=== PATIENT | female | born 1955 | race Caucasian/White ===

== ENCOUNTER 2017-12-30 17:54 | Inpatient (IN) ==
[2017-12-31] MEDS ORDERED: Ipratropium/Albuterol Neb 3 ML IH STA (00:20)
[2017-12-31 00:35] LABS: ABG Base Excess 10 mEq/L (-2 to 3); ABG HCO3 37 mEq/L (21-27); ABG Oxygen Saturation 92 % (95-98); ABG PCO2 64 mmHg (35-45); ABG PH 7.37 pH Units (7.32-7.45); ABG PO2 69 mmHg (85-104); ABG TCO2 39 mEq/L (20-26)
[2017-12-31] MEDS ORDERED: Naloxone 0.4 MG/ML INJ IVP PRN (01:35)
[2017-12-31] MEDS ORDERED: Acetaminophen 325 MG TABLET PO PRN (01:35)
[2017-12-31] MEDS ORDERED: Ipratropium/Albuterol Neb 3 ML IH PRN (01:39)
[2017-12-31] MEDS ORDERED: methylPREDNISolone 125 MG/2 ML VIAL IVP ONE (01:39)
[2017-12-31] MEDS ORDERED: Dextrose Gel 15 GM/37.5 ML TUBE PO PRN ×2 (01:41)
[2017-12-31] MEDS ORDERED: D5% in Water 1,000 ML IVC PRN (01:41)
[2017-12-31] MEDS ORDERED: *HR* Dextrose 50 % in Water (Syg) 50 ML SYRINGE IVP PRN (01:41)
--- NOTE | 2017-12-31 02:19 | Internal Med History&Physical ---
Date of Encounter: 12/31/17 Time of Encounter: 01:00 Assessment and Plan (1) COPD exacerbation Current visit: Yes Status: Acute Patient has increased shortness of breath and wheezing. History of COPD on home oxygen. Her bicarbonate level increased from baseline 24 to 35. ABG shows CO2 retention. Consider COPD exacerbation - Place patient on antibiotic, steroid, and bronchodilator - BiPAP for CO2 retention - Continue supportive treatment (2) Hypertension Current visit: Yes Status: Acute Continue home medications Qualifiers: Hypertension type: essential hypertension Qualified Code(s): I10 - Essential (primary) hypertension (3) Diabetes mellitus Current visit: Yes Status: Acute Place patient on sliding scale coverage Qualifiers: Diabetes mellitus type: type 2 Diabetes mellitus half-way insulin use: without half-way use Diabetes mellitus complication status: without complication Qualified Code(s): E11.9 - Type 2 diabetes mellitus without complications (4) Abnormal EKG Current visit: Yes Status: Acute Patient denies chest pain. No specific ST-T change with patient's potassium 3.3. Consider nonspecific. - Continuous cardiac monitoring - Track 3 sets of troponin - Echo in a.m. - Repeat EKG in a.m. (5) DVT prophylaxis Current visit: Yes Status: Acute Heparin subcutaneously Internal Medicine - H&P: HPI Chief complaint: Shortness of breath Admitted From: Home Plans for Post Hospital Care: Home History of present illness: Ms. Barraza is a 62 year old female with history of COPD, diabetes, hypertension, presented to [place] emergency room for increased shortness of breath. Patient said she has cough with whitish sputum for about 20 days, with progressive increased shortness of breath. Patient denies a fever. Patient denies chest pain, abdominal pain, nausea. In [place] emergency room, EKG shows shallow T-wave inversion on V1 to V4. Patient was transferred to our hospital for further management. Past Med Surg Social Fam HX - Past Medical History Medical history: arthritis, asthma, COPD, coronary artery disease, diabetes, GERD, hypertension Psychiatric history: anxiety, depression - Past Surgical History Surgical History: hysterectomy - Social History Smoking Status: Current every day smoker Packs per day: 1 pack/day Smokeless Tobacco Status: No Alcohol use: occasionally Drug use: none - Family History Mother Hx Family Cardiac Disorders: Yes Father History Unknown: Yes Living Status: Hx Family Cardiac Disorders: Yes Internal Medicine - H&P: Meds Albuterol Sulfate [Proair Hfa] 1 - 2 puff IH DAILY 02/08/17 [History] Aripiprazole [Abilify] 15 mg PO DAILY 02/08/17 [History] Escitalopram Oxalate 10 mg PO DAILY 02/08/17 [History] Megestrol Acetate [Megace] 40 ml PO DAILY 02/08/17 [History] Metoprolol [Lopressor] 25 mg PO DAILY 02/08/17 [History] Mirtazapine [Remeron] 30 mg PO HS 02/08/17 [History] Tiotropium [Spiriva] 18 mcg IH DAILY 02/08/17 [History] Budesonide/Formoterol 160/4.5 [Symbicort 160/4.5] 2 puff IH BIDR #1 inhaler [Rx] Amlodipine Besylate 5 mg PO DAILY 12/14/17 [History] Aspirin [Lo-Dose Aspirin EC] 81 mg PO DAILY 12/14/17 [History] Cholecalciferol (Vitamin D3) [Vitamin D] 50,000 unit PO QWEEK 12/14/17 [History] Cyanocobalamin (B-12) [Vitamin B12] 3,000 mcg PO DAILY 12/14/17 [History] Ferrous Sulfate [Iron] 325 mg PO BID 12/14/17 [History] Folic Acid 1 mg PO DAILY 12/14/17 [History] Linagliptin [Tradjenta] 5 mg PO DAILY 12/14/17 [History] Omeprazole [PriLOSEC] 40 mg PO DAILY 12/14/17 [History] Simvastatin [Zocor] 10 mg PO HS 12/14/17 [History] diazePAM [Valium] 5 mg PO BID PRN 12/14/17 [History] Budesonide/Formoterol 160/4.5 [Symbicort 160/4.5] 2 puff IH DAILY 12/30/17 [ History] Pioglitazone HCl [Actos] 30 mg PO DAILY 12/30/17 [History] 3 Allergy/AdvReac Type Severity Reaction Status Date / Time No Known Allergies Allergy Unverified 12/14/17 14:09 All Systems PM: A 10-system review of systems was performed and is negative for pertinent findings except as documented above in the HPI. - Constitutional Vitals: Temp Pulse Resp BP Pulse Ox 98.3 F 68 22 95/62 95 12/30/17 23:50 12/30/17 23:50 12/31/17 01:00 12/30/17 23:50 12/31/17 01:00 General appearance: Present: mild distress, A&O X 3, answers questions appropriately - Head Head exam: Present: atraumatic, normocephalic - Eye Eye exam: Present: PERRL, conjuntiva pink, sclera anicteric Pupils: Present: PERRL - Neck Neck exam general surgery: Present: supple, trachea midline. Absent: lymphadenopathy - Respiratory Respiratory exam: Present: CTAB, wheezes (Diffused wheezes bilaterally). Absent : accessory muscle use, rales, rhonchi - Cardiovascular Cardiovascular exam: Present: RRR, +S1, +S2. Absent: diastolic murmur, gallop, rubs, systolic murmur - GI/Abdominal GI/Abdominal exam: Present: normal bowel sounds, soft, no peritoneal signs. Absent: distended, tenderness - Extremities Exam Extremities exam: Present: warm, radial pulses palpable and symmetrical. Absent : calf tenderness, cyanotic, pedal edema - Neurological Exam Neurological exam: Present: CN II-XII intact, oriented X3, no focal deficits. Absent: pronater drift, facial droop, speech deficit - Skin Skin exam: Present: dry, intact Internal Med - H&P Results - ABG Interpretation ABG results: 12/31/17 00:31 ABG pH 7.37 ABG pCO2 64 H ABG pO2 69 L ABG HCO3 37 H ABG Total CO2 39 H ABG O2 Saturation 92 L ABG Base Excess 10 H - EKG Data -: EKG Interpreted by Myself EKG shows normal: sinus rhythm, ST-T waves (Shallow T-wave inversion on V1 to V4 ) Rate: normal - EKG Data Prior EKG available for review: no
[2017-12-31 02:44] LABS: Basophils % 0.2 %; Hematocrit 37.8 % (35.3-44.9); Hemoglobin 12.1 g/dL (11.5-15.4); Immature Granulocytes % 0.7 % (0-4); Immature Platelets 3.6 % (1.1-6.1); Lymphocytes # 0.4 K/mcL (0.6-4.6); Lymphocytes % 6.9 %; Mean Corpuscular Volume 96.9 fL (83.0-100.0); Mean Platelet Volume 9.8 fL (9.4-12.4); Monocytes % 0.5 %; Neutrophils # 5.2 K/mcL (1.6-8.9); Nucleated Red Blood Cells 0.4 /100 WBC (0); Platelet Count 215 K/mcL (140-400); Red Cell Distribution Width 12.1 % (11.5-14.5); Segmented Neutrophils % 91.7 %
[2017-12-31 03:04] LABS: Calcium 9.1 mg/dL (8.6-10.3); Magnesium 1.7 mg/dL (1.6-2.6); Potassium 3.8 mEq/L (3.5-5.1)
[2017-12-31] MEDS: Ipratropium/Albuterol Neb 3 ML IH SCH ×4 (03:41→22:19)
[2017-12-31] MEDS: *HR* Heparin 5,000 UNIT/ML VIAL SQ SCH ×2 (05:14→17:31)
[2017-12-31] MEDS: Budesonide/Formoterol 160/4.5 MDI IH SCH ×2 (10:47→22:19)
[2017-12-31] MEDS: Tiotropium 18 MCG inhalation IH SCH (10:48)
[2017-12-31] MEDS: Nicotine 21 MG PATCH.TD24 TD SCH (11:03)
[2017-12-31] MEDS: Insulin LISPRO 300 UNITS/3 ML VIAL SQ SCH ×4 (11:03→21:26)
[2017-12-31] MEDS: methylPREDNISolone 125 MG/2 ML VIAL IVP SCH ×3 (11:05→21:26)
[2017-12-31] MEDS: amLODIPine 5 MG TABLET PO SCH (11:05)
[2017-12-31] MEDS: Levofloxacin 750 MG/150 ML 750 MG/150 ML BAG IVPB SCH (11:05)
--- NOTE | 2017-12-31 14:07 | Internal Med Progress Note ---
Date of Encounter: 12/31/17 Time of Encounter: 09:10 - Assessment and plan (1) COPD exacerbation Current Visit: Yes Status: Acute Assessment and plan: Increased SOB, SAMPSON x 2-3 weeks. Pt with audible wheezing, ronchi on physical exam, conversational dyspnea. Pt requiring supplemental 02 at 2L to maintain sats > 92%. Blood gas 7.37/64/69/37, continue BiPAP at night. Continue Duonebs, Symbicort, Levaquin, Solumedrol, 02 prn, and Mucinex. (2) Abnormal EKG Current Visit: Yes Status: Acute Assessment and plan: No chest pain. Nonspecific ST changes with hypo-kalemia. Continue telemetry Troponins negative. Echo shows LVEF of 60-65%, mild LV DD, no significant valvular dysfunction. Repeat EKG in morning. (3) Diabetes mellitus Current Visit: Yes Status: Acute Assessment and plan: Monitor glucose carefully, patient is receiving IV Methylprednisolone. Sliding-scale insulin, Accu-Cheks before meals and at bedtime, diabetic diet. A1c ordered for morning. Qualifiers: Diabetes mellitus type: type 2 Diabetes mellitus termite treater insulin use: without snf use Diabetes mellitus complication status: without complication Qualified Code(s): E11.9 - Type 2 diabetes mellitus without complications (4) Hypertension Current Visit: Yes Status: Chronic Assessment and plan: Chronic. Continue home medications. Monitor blood pressure per admission orders. Qualifiers: Hypertension type: essential hypertension Qualified Code(s): I10 - Essential (primary) hypertension (5) Dyspnea Current Visit: Yes Status: Acute Assessment and plan: Plan as above. Qualifiers: Dyspnea type: unspecified Qualified Code(s): R06.00 - Dyspnea, unspecified (6) DVT prophylaxis Current Visit: Yes Status: Acute Assessment and plan: Heparin subcutaneous. - Time Spent With Patient less than 15 minutes - Subjective Interval history: Pt was seen and assessed at bedside at 0910. Pt reports feeling weak and SOB x 2 -3 weeks, increasingly worse until she presented to the ED. Pt is alert and awake, has conversational dyspnea and audible wheezing. Pt denies chest pain, n/ v/d, abdominal pain. Pt reports that she is still smoking and would like a Nicotine patch. Pt is aware that she will probably be here for 2 more days. - Constitutional Vitals: Temp Pulse Resp BP Pulse Ox 98.2 F 90 16 107/73 92 12/31/17 11:31 12/31/17 11:31 12/31/17 11:31 12/31/17 11:31 12/31/17 11:31 General appearance: Present: cooperative, mild distress, A&O X 3, pleasant, answers questions appropriately - Head Head exam: Present: atraumatic, normal inspection, normocephalic - Eye Eye exam: Present: normal appearance, conjuntiva pink, sclera anicteric - Neck Neck exam general surgery: Present: supple, trachea midline. Absent: lymphadenopathy, tenderness - Respiratory Respiratory exam: Present: CTAB, respiratory distress, rhonchi, wheezes. Absent : accessory muscle use, chest wall tenderness, rales, stridor - Cardiovascular Cardiovascular exam: Present: RRR, +S1, +S2. Absent: diastolic murmur, gallop, rubs, systolic murmur - GI/Abdominal GI/Abdominal exam: Present: normal bowel sounds, soft. Absent: distended, hepatomegaly, tenderness - Extremities Exam Extremities exam: Present: joint swelling, warm, radial pulses palpable and symmetrical. Absent: calf tenderness, cyanotic, pedal edema - Neurological Exam Neurological exam: Present: alert, oriented X3, no focal deficits. Absent: facial droop, speech deficit - Skin Skin exam: Present: dry, intact, normal color, warm. Absent: rash Internal Medicine: Result - Labs CBC & Chem 7: 12/31/17 02:12 12/31/17 02:12 Labs: Short CBC 12/31/17 Range/Units 02:12 WBC 5.6 (4.3-11.1) K/mcL Hgb 12.1 (11.5-15.4) g/dL Hct 37.8 (35.3-44.9) % Plt Count 215 (140-400) K/mcL Neutrophils # 5.2 (1.6-8.9) K/mcL BMP 12/31/17 02:12 Sodium 138 Potassium 3.8 Chloride 98 Carbon Dioxide 32 H BUN 12 Creatinine 1.13 Glucose 174 H Calcium 9.1 Cardiac Enzymes 12/31/17 12/31/17 Range/Units 02:12 08:05 Troponin I < 0.03 < 0.03 (< 0.04) ng/mL - ABG Interpretation ABG results: ABG ABG pH 7.37 pH Units (7.32-7.45) 12/31/17 00:31 ABG pCO2 64 mmHg (35-45) H 12/31/17 00:31 ABG pO2 69 mmHg (85-104) L 12/31/17 00:31 ABG O2 Saturation 92 % (95-98) L 12/31/17 00:31 - Impressions Impressions Echocardiogram 12/31/17 02:19 Impressions: LVEF 60-65%. Mild left ventricular diastolic dysfunction. Normal right ventricular structure and function. No significant valvular dysfunction. No pulmonary hypertension. Left Ventricular Wall Motion: Rest Echo Findings All wall segments showed normal motion. Findings: Study Quality * Technically adequate exam. ECG Findings * Normal sinus rhythm. Left Ventricle * Normal LV size and wall thickness. * LVEF 60-65%. * Mild left ventricular diastolic dysfunction. Right Ventricle * Normal right ventricular structure and function. Left Atrium * Normal left atrial size. Right Atrium * Normal right atrial size. Mitral Valve * Normal mitral valve structure. * No mitral stenosis. * No mitral regurgitation. Aortic Valve * Trace aortic regurgitation. * Aortic valve not well visualized. * No aortic stenosis. Tricuspid Valve * Tricuspid valve not well visualized. * No tricuspid regurgitation. * Estimated RA pressure is 3 mmHg. Pulmonic Valve * Pulmonic valve is not well visualized. * No pulmonic stenosis. * Trace pulmonic regurgitation. Pulmonary Artery * Pulmonary artery not well visualized. Aorta * Normally sized aortic root. Pericardium * There is no pericardial effusion present. Interatrial Septum * No evidence of PFO by color Doppler. IVC * Normal IVC dimensions and inspiratory collapse. Consult Discharge Plan - Plan Referrals: Soo Tineo CNP [Primary Care Provider] -
[2018-01-01] MEDS: methylPREDNISolone 125 MG/2 ML VIAL IVP SCH ×4 (03:28→21:09)
[2018-01-01] MEDS: Ipratropium/Albuterol Neb 3 ML IH SCH ×4 (04:06→22:02)
[2018-01-01] MEDS: *HR* Heparin 5,000 UNIT/ML VIAL SQ SCH ×2 (05:35→17:55)
[2018-01-01 06:07] LABS: Hematocrit 36.2 % (35.3-44.9); Hemoglobin 11.7 g/dL (11.5-15.4); Immature Granulocytes % 0.7 % (0-4); Lymphocytes # 0.4 K/mcL (0.6-4.6); Lymphocytes % 5.1 %; Mean Corpuscular HGB Conc 32.3 g/dL (31.6-35.5); Mean Corpuscular Volume 95.8 fL (83.0-100.0); Mean Platelet Volume 9.7 fL (9.4-12.4); Monocytes # 0.3 K/mcL (0.0-1.3); Neutrophils # 7.8 K/mcL (1.6-8.9); Platelet Count 188 K/mcL (140-400); Red Blood Count 3.78 M/mcL (3.82-4.97); Red Cell Distribution Width 12.3 % (11.5-14.5); Segmented Neutrophils % 91.2 %
[2018-01-01 06:25] LABS: Calcium 9.4 mg/dL (8.6-10.3); Potassium 4.3 mEq/L (3.5-5.1)
[2018-01-01] MEDS: Tiotropium 18 MCG inhalation IH SCH (07:57)
[2018-01-01] MEDS: Nicotine 21 MG PATCH.TD24 TD SCH (08:24)
[2018-01-01] MEDS: amLODIPine 5 MG TABLET PO SCH (08:25)
[2018-01-01] MEDS: Insulin LISPRO 300 UNITS/3 ML VIAL SQ SCH ×4 (08:26→21:09)
[2018-01-01] MEDS: Levofloxacin 750 MG/150 ML 750 MG/150 ML BAG IVPB SCH (08:26)
[2018-01-01] MEDS: Budesonide/Formoterol 160/4.5 MDI IH SCH ×2 (10:43→22:02)
--- NOTE | 2018-01-01 17:56 | Internal Med Progress Note ---
Date of Encounter: 01/01/18 Time of Encounter: 17:56 - Subjective Interval history: Interval changes: She feels her breathing is worse since she was admitted yesterday. Sounds very congested and very rhonchorous COPD exacerbation: Continue Bronchodilators Add muccinex Continue Solumedrol but begin to wean tomorrow continue empiric antibiotics DM-2: Comlicated by high-dose steroids Continue SSI Add Levemir 10 Units Sq AM and PB qACHS accuchecks Esssential HTN: Continue home medications - Constitutional Vitals: Temp Pulse Resp BP Pulse Ox 98.7 F 90 18 109/68 93 01/01/18 15:39 01/01/18 11:17 01/01/18 15:56 01/01/18 15:39 01/01/18 15:56 General appearance: Present: cooperative, mild distress, A&O X 3, pleasant, answers questions appropriately - Head Head exam: Present: atraumatic, normocephalic - Eye Eye exam: Present: EOMI, PERRL, conjuntiva pink, sclera anicteric Pupils: Present: PERRL - Neck Neck exam general surgery: Present: supple, trachea midline. Absent: lymphadenopathy, thyromegaly - Respiratory Respiratory exam: Present: rhonchi, wheezes. Absent: accessory muscle use, CTAB , rales, stridor, tachypnea - Cardiovascular Cardiovascular exam: Present: RRR, +S1, +S2. Absent: diastolic murmur, gallop, rubs, systolic murmur - GI/Abdominal GI/Abdominal exam: Present: normal bowel sounds, soft, no peritoneal signs. Absent: distended, tenderness - Extremities Exam Extremities exam: Present: warm, radial pulses palpable and symmetrical. Absent : calf tenderness, cyanotic, pedal edema - Neurological Exam Neurological exam: Present: CN II-XII intact, oriented X3, no focal deficits. Absent: pronater drift, facial droop, speech deficit - Psychiatric Psychiatric exam: Present: normal affect, normal mood - Skin Skin exam: Present: dry, intact Internal Medicine: Result - Labs CBC & Chem 7: 01/01/18 05:01 01/01/18 05:01 Labs: Short CBC 01/01/18 Range/Units 05:01 WBC 8.6 D (4.3-11.1) K/mcL Hgb 11.7 (11.5-15.4) g/dL Hct 36.2 (35.3-44.9) % Plt Count 188 (140-400) K/mcL Neutrophils # 7.8 (1.6-8.9) K/mcL BMP 01/01/18 05:01 Sodium 139 Potassium 4.3 Chloride 99 Carbon Dioxide 32 H BUN 22 Creatinine 1.27 H Glucose 214 H Calcium 9.4 - ABG Interpretation ABG results: ABG ABG pH 7.37 pH Units (7.32-7.45) 12/31/17 00:31 ABG pCO2 64 mmHg (35-45) H 12/31/17 00:31 ABG pO2 69 mmHg (85-104) L 12/31/17 00:31 ABG O2 Saturation 92 % (95-98) L 12/31/17 00:31 Consult Discharge Plan - Plan Referrals: Soo Tineo, JP [Primary Care Provider] -
[2018-01-01] MEDS ORDERED: D5% in Water 1,000 ML IVC PRN (23:07)
[2018-01-01] MEDS ORDERED: Dextrose Gel 15 GM/37.5 ML TUBE PO PRN ×2 (23:07)
[2018-01-01] MEDS ORDERED: *HR* Dextrose 50 % in Water (Syg) 50 ML SYRINGE IVP PRN (23:07)
[2018-01-02] MEDS: methylPREDNISolone 125 MG/2 ML VIAL IVP SCH ×4 (02:27→18:49)
[2018-01-02] MEDS: Ipratropium/Albuterol Neb 3 ML IH SCH ×4 (04:11→22:23)
[2018-01-02 04:37] LABS: Hematocrit 36.1 % (35.3-44.9); Hemoglobin 11.4 g/dL (11.5-15.4); Immature Granulocytes % 0.9 % (0-4); Lymphocytes # 0.3 K/mcL (0.6-4.6); Lymphocytes % 3.2 %; Mean Corpuscular HGB Conc 31.6 g/dL (31.6-35.5); Mean Corpuscular Hemoglobin 30.7 pg (28.0-33.3); Mean Corpuscular Volume 97.3 fL (83.0-100.0); Mean Platelet Volume 9.8 fL (9.4-12.4); Monocytes # 0.1 K/mcL (0.0-1.3); Monocytes % 1.1 %; Neutrophils # 8.5 K/mcL (1.6-8.9); Platelet Count 189 K/mcL (140-400); Red Blood Count 3.71 M/mcL (3.82-4.97); Red Cell Distribution Width 12.4 % (11.5-14.5); Segmented Neutrophils % 94.8 %
[2018-01-02 04:52] LABS: Calcium 9.2 mg/dL (8.6-10.3); Potassium 4.1 mEq/L (3.5-5.1)
[2018-01-02] MEDS: *HR* Heparin 5,000 UNIT/ML VIAL SQ SCH ×2 (04:57→17:05)
[2018-01-02] MEDS: Insulin LISPRO 300 UNITS/3 ML VIAL SQ SCH ×4 (07:57→21:16)
[2018-01-02] MEDS: Nicotine 21 MG PATCH.TD24 TD SCH (07:58)
[2018-01-02] MEDS: amLODIPine 5 MG TABLET PO SCH (08:00)
[2018-01-02] MEDS: Insulin DETEMIR 100 UNIT/ML X5UNITS SQ SCH ×2 (09:10→21:17)
[2018-01-02] MEDS: Budesonide/Formoterol 160/4.5 MDI IH SCH ×2 (10:57→22:23)
[2018-01-02] MEDS: Tiotropium 18 MCG inhalation IH SCH (10:58)
--- NOTE | 2018-01-02 17:50 | Internal Med Progress Note ---
Date of Encounter: 01/02/18 Time of Encounter: 17:49 - Subjective Interval history: Interval changes: 01/01/2018: She feels her breathing is worse since she was admitted yesterday. Sounds very congested and very rhonchorous 01/02/2018 Breathing marginally better She still has considerable chest congestion BG continues to be elevated and insulin dosing adjusted again COPD exacerbation: Continue Bronchodilators Muccinex added yesterday Solumedrol dose decreased Continue empiric antibiotics Respiratory panel and Procalcitonin ordered Concern for underlying viral infection Talk to respiratory therapy about getting her an Acapella device to help breakup secreations DM-2: Comlicated by high-dose steroids Continue SSI Add Levemir 10 Units Sq AM and PB qACHS accuchecks (changed to High scale) Esssential HTN: Continue home medications - Constitutional Vitals: Temp Pulse Resp BP Pulse Ox 98.2 F 100 18 121/81 95 01/02/18 15:29 01/02/18 15:29 01/02/18 15:29 01/02/18 15:29 01/02/18 15:29 General appearance: Present: cooperative, mild distress, A&O X 3, pleasant, answers questions appropriately - Head Head exam: Present: atraumatic, normocephalic - Eye Eye exam: Present: PERRL, conjuntiva pink, sclera anicteric Pupils: Present: PERRL - Neck Neck exam general surgery: Present: supple, trachea midline. Absent: lymphadenopathy - Respiratory Respiratory exam: Present: rhonchi, wheezes. Absent: accessory muscle use, rales, stridor - Cardiovascular Cardiovascular exam: Present: +S1, +S2, tachycardia. Absent: diastolic murmur, gallop, rubs, systolic murmur - GI/Abdominal GI/Abdominal exam: Present: normal bowel sounds, soft, no peritoneal signs. Absent: distended, tenderness - Extremities Exam Extremities exam: Present: warm, radial pulses palpable and symmetrical. Absent : calf tenderness, cyanotic, pedal edema - Neurological Exam Neurological exam: Present: CN II-XII intact, oriented X3, no focal deficits. Absent: pronater drift, facial droop, speech deficit - Psychiatric Psychiatric exam: Present: normal affect, normal mood - Skin Skin exam: Present: dry, intact Internal Medicine: Result - Labs CBC & Chem 7: 01/02/18 03:45 01/02/18 03:45 Labs: Short CBC 01/02/18 Range/Units 03:45 WBC 9.0 (4.3-11.1) K/mcL Hgb 11.4 L (11.5-15.4) g/dL Hct 36.1 (35.3-44.9) % Plt Count 189 (140-400) K/mcL Neutrophils # 8.5 (1.6-8.9) K/mcL BMP 01/02/18 03:45 Sodium 136 Potassium 4.1 Chloride 96 L Carbon Dioxide 33 H BUN 28 H Creatinine 1.36 H Glucose 204 H Calcium 9.2 - ABG Interpretation ABG results: ABG ABG pH 7.37 pH Units (7.32-7.45) 12/31/17 00:31 ABG pCO2 64 mmHg (35-45) H 12/31/17 00:31 ABG pO2 69 mmHg (85-104) L 12/31/17 00:31 ABG O2 Saturation 92 % (95-98) L 12/31/17 00:31 Consult Discharge Plan - Plan Referrals: Soo Tineo, [employer] [Primary Care Provider] -
[2018-01-03] MEDS: Ipratropium/Albuterol Neb 3 ML IH SCH ×4 (03:59→21:33)
[2018-01-03 04:11] LABS: Adenovirus Not Detected (Not Detect); Bordetella Pertussis Not Detected (Not Detect); Chlamydophila pneumoniae Not Detected (Not Detect); Coronavirus 229E Not Detected (Not Detect); Coronavirus HKU1 Not Detected (Not Detect); Coronavirus NL63 Not Detected (Not Detect); Coronavirus OC43 Not Detected (Not Detect); Human Metapneumovirus Not Detected (Not Detect); Human Rhinovirus/Enterovirus Not Detected (Not Detect); Influenza A Subtype 2009 H1 Not Detected (Not Detect); Influenza A Untypeable Not Detected (Not Detect); Influenza B Not Detected (Not Detect); Mycoplasma pneumoniae Not Detected (Not Detect); Parainfluenza Virus 1 Not Detected (Not Detect); Parainfluenza Virus 2 Not Detected (Not Detect); Parainfluenza Virus 3 Not Detected (Not Detect); Parainfluenza Virus 4 Not Detected (Not Detect); Respiratory Syncytial Virus Not Detected (Not Detect)
[2018-01-03] MEDS: methylPREDNISolone 125 MG/2 ML VIAL IVP SCH ×2 (05:51→17:38)
[2018-01-03] MEDS: *HR* Heparin 5,000 UNIT/ML VIAL SQ SCH ×2 (05:52→17:39)
[2018-01-03 06:23] LABS: Hematocrit 36.9 % (35.3-44.9); Hemoglobin 11.7 g/dL (11.5-15.4); Immature Granulocytes % 1.3 % (0-4); Lymphocytes # 0.5 K/mcL (0.6-4.6); Lymphocytes % 6.7 %; Mean Corpuscular HGB Conc 31.7 g/dL (31.6-35.5); Mean Corpuscular Hemoglobin 30.5 pg (28.0-33.3); Mean Corpuscular Volume 96.3 fL (83.0-100.0); Mean Platelet Volume 9.7 fL (9.4-12.4); Monocytes # 0.2 K/mcL (0.0-1.3); Neutrophils # 6.6 K/mcL (1.6-8.9); Platelet Count 183 K/mcL (140-400); Red Blood Count 3.83 M/mcL (3.82-4.97); Red Cell Distribution Width 12.4 % (11.5-14.5)
[2018-01-03 06:50] LABS: Calcium 9.3 mg/dL (8.6-10.3); Potassium 3.9 mEq/L (3.5-5.1)
[2018-01-03] MEDS: Insulin LISPRO 300 UNITS/3 ML VIAL SQ SCH ×4 (09:31→21:45)
[2018-01-03] MEDS: Nicotine 21 MG PATCH.TD24 TD SCH (10:10)
[2018-01-03] MEDS: Levofloxacin 750 MG/150 ML 750 MG/150 ML BAG IVPB SCH (10:10)
[2018-01-03] MEDS: Insulin DETEMIR 100 UNIT/ML X5UNITS SQ SCH ×2 (10:11→21:46)
[2018-01-03] MEDS: amLODIPine 5 MG TABLET PO SCH (10:11)
[2018-01-03] MEDS: Budesonide/Formoterol 160/4.5 MDI IH SCH ×2 (10:37→21:33)
[2018-01-03] MEDS: Tiotropium 18 MCG inhalation IH SCH (10:38)
--- NOTE | 2018-01-03 17:45 | Internal Med Progress Note ---
Date of Encounter: 01/03/18 Time of Encounter: 17:45 - Subjective Interval history: Interval changes: 01/01/2018: She feels her breathing is worse since she was admitted yesterday. Sounds very congested and very rhonchorous 01/02/2018 Breathing marginally better She still has considerable chest congestion BG continues to be elevated and insulin dosing adjusted again 01/03/2018: Lungs sound much better today Patient able to clear thick secretions today COPD exacerbation: Continue Bronchodilators Muccinex added yesterday Solumedrol dose decreased Continue empiric antibiotics Respiratory panel and Procalcitonin ordered Concern for underlying viral infection Talk to respiratory therapy about getting her an Acapella device to help breakup secreations DM-2: Comlicated by high-dose steroids Continue SSI Add Levemir 10 Units Sq AM and PB qACHS accuchecks (changed to High scale) Esssential HTN: Continue home medications - Constitutional Vitals: Temp Pulse Resp BP Pulse Ox 97.9 F 89 16 126/81 94 01/03/18 15:11 01/03/18 15:11 01/03/18 16:20 01/03/18 15:11 01/03/18 16:20 General appearance: Present: cooperative, mild distress, A&O X 3, pleasant, answers questions appropriately - Head Head exam: Present: atraumatic, normocephalic - Eye Eye exam: Present: PERRL, conjuntiva pink, sclera anicteric Pupils: Present: PERRL - Neck Neck exam general surgery: Present: supple, trachea midline. Absent: lymphadenopathy - Respiratory Respiratory exam: Present: CTAB, wheezes. Absent: accessory muscle use, rales, rhonchi Additional comments: Scattered fine wheezes bilaterally but overall much clearer - Cardiovascular Cardiovascular exam: Present: RRR, +S1, +S2. Absent: diastolic murmur, gallop, rubs, systolic murmur - GI/Abdominal GI/Abdominal exam: Present: normal bowel sounds, soft, no peritoneal signs. Absent: distended, tenderness - Extremities Exam Extremities exam: Present: warm, radial pulses palpable and symmetrical. Absent : calf tenderness, cyanotic, pedal edema - Neurological Exam Neurological exam: Present: CN II-XII intact, oriented X3, no focal deficits. Absent: pronater drift, facial droop, speech deficit - Skin Skin exam: Present: dry, intact Internal Medicine: Result - Labs CBC & Chem 7: 01/03/18 05:27 01/03/18 05:27 Labs: Short CBC 01/03/18 Range/Units 05:27 WBC 7.5 (4.3-11.1) K/mcL Hgb 11.7 (11.5-15.4) g/dL Hct 36.9 (35.3-44.9) % Plt Count 183 (140-400) K/mcL Neutrophils # 6.6 (1.6-8.9) K/mcL BMP 01/03/18 05:27 Sodium 136 Potassium 3.9 Chloride 95 L Carbon Dioxide 33 H BUN 30 H Creatinine 1.19 Glucose 166 H Calcium 9.3 - ABG Interpretation ABG results: ABG ABG pH 7.37 pH Units (7.32-7.45) 12/31/17 00:31 ABG pCO2 64 mmHg (35-45) H 12/31/17 00:31 ABG pO2 69 mmHg (85-104) L 12/31/17 00:31 ABG O2 Saturation 92 % (95-98) L 12/31/17 00:31 - Impressions Impressions Chest X-Ray 01/02/18 18:01 IMPRESSION: 1. No acute cardiopulmonary process. 2. Emphysema. D/ / Leoncio Spring MD / Leoncio Spring MD Interpreting Provider: Leoncio Spring MD Consult Discharge Plan - Plan Referrals: Soo Tineo CNP [Primary Care Provider] - 01/10/18 12:30 pm
[2018-01-04] MEDS: Ipratropium/Albuterol Neb 3 ML IH SCH ×4 (03:59→22:10)
[2018-01-04] MEDS: methylPREDNISolone 125 MG/2 ML VIAL IVP SCH ×2 (06:04→17:23)
[2018-01-04] MEDS: *HR* Heparin 5,000 UNIT/ML VIAL SQ SCH ×2 (06:05→17:20)
[2018-01-04 06:40] LABS: Basophils % 0.3 %; Hematocrit 36.8 % (35.3-44.9); Hemoglobin 12.1 g/dL (11.5-15.4); Immature Granulocytes % 1.3 % (0-4); Lymphocytes # 0.5 K/mcL (0.6-4.6); Lymphocytes % 7.1 %; Mean Corpuscular HGB Conc 32.9 g/dL (31.6-35.5); Mean Corpuscular Hemoglobin 31.1 pg (28.0-33.3); Mean Corpuscular Volume 94.6 fL (83.0-100.0); Mean Platelet Volume 9.7 fL (9.4-12.4); Monocytes # 0.3 K/mcL (0.0-1.3); Monocytes % 4.5 %; Neutrophils # 6.3 K/mcL (1.6-8.9); Platelet Count 178 K/mcL (140-400); Red Blood Count 3.89 M/mcL (3.82-4.97); Red Cell Distribution Width 12.4 % (11.5-14.5); Segmented Neutrophils % 86.8 %
[2018-01-04 06:48] LABS: Calcium 9.2 mg/dL (8.6-10.3); Potassium 4.4 mEq/L (3.5-5.1)
[2018-01-04] MEDS: Nicotine 21 MG PATCH.TD24 TD SCH (08:48)
[2018-01-04] MEDS: Insulin DETEMIR 100 UNIT/ML X5UNITS SQ SCH ×2 (08:51→20:42)
[2018-01-04] MEDS: amLODIPine 5 MG TABLET PO SCH (08:52)
[2018-01-04] MEDS: Insulin LISPRO 300 UNITS/3 ML VIAL SQ SCH ×4 (08:54→20:42)
[2018-01-04] MEDS: Budesonide/Formoterol 160/4.5 MDI IH SCH ×2 (11:10→22:10)
[2018-01-04] MEDS: Tiotropium 18 MCG inhalation IH SCH (11:11)
--- NOTE | 2018-01-04 14:33 | Internal Med Progress Note ---
Date of Encounter: 01/04/18 Time of Encounter: 14:31 - Subjective Interval history: Interval changes: 01/01/2018: She feels her breathing is worse since she was admitted yesterday. Sounds very congested and very rhonchorous 01/02/2018 Breathing marginally better She still has considerable chest congestion BG continues to be elevated and insulin dosing adjusted again 01/03/2018: Lungs sound much better today Patient able to clear thick secretions today 01/04/2018: Still getting thick secretions up COPD exacerbation: Continue Bronchodilators Muccinex added yesterday Solumedrol dose decreased Continue empiric antibiotics Respiratory panel and Procalcitonin ordered Concern for underlying viral infection Using Acapella device to help breakup secreations DM-2: Comlicated by high-dose steroids Continue SSI Add Levemir 10 Units Sq AM and PB qACHS accuchecks (changed to High scale) Esssential HTN: Continue home medications - Constitutional Vitals: Temp Pulse Resp BP Pulse Ox 98.2 F 86 20 126/75 95 01/04/18 11:35 01/04/18 11:35 01/04/18 11:35 01/04/18 11:35 01/04/18 11:42 General appearance: Present: cooperative, mild distress, A&O X 3, pleasant, answers questions appropriately - Head Head exam: Present: atraumatic, normocephalic - Eye Eye exam: Present: PERRL, conjuntiva pink, sclera anicteric Pupils: Present: PERRL - Neck Neck exam general surgery: Present: supple, trachea midline. Absent: lymphadenopathy - Respiratory Respiratory exam: Present: CTAB. Absent: accessory muscle use, rales, rhonchi, wheezes - Cardiovascular Cardiovascular exam: Present: RRR, +S1, +S2. Absent: diastolic murmur, gallop, rubs, systolic murmur - GI/Abdominal GI/Abdominal exam: Present: normal bowel sounds, soft, no peritoneal signs. Absent: distended, guarding, tenderness - Extremities Exam Extremities exam: Present: warm, radial pulses palpable and symmetrical. Absent : calf tenderness, cyanotic, pedal edema - Neurological Exam Neurological exam: Present: CN II-XII intact, oriented X3, no focal deficits. Absent: pronater drift, facial droop, speech deficit - Psychiatric Psychiatric exam: Present: normal affect, normal mood - Skin Skin exam: Present: dry, intact Internal Medicine: Result - Labs CBC & Chem 7: 01/04/18 06:03 01/04/18 06:03 Labs: Short CBC 01/04/18 Range/Units 06:03 WBC 7.2 (4.3-11.1) K/mcL Hgb 12.1 (11.5-15.4) g/dL Hct 36.8 (35.3-44.9) % Plt Count 178 (140-400) K/mcL Neutrophils # 6.3 (1.6-8.9) K/mcL BMP 01/04/18 06:03 Sodium 133 L Potassium 4.4 Chloride 95 L Carbon Dioxide 32 H BUN 29 H Creatinine 1.28 H Glucose 219 H Calcium 9.2 - ABG Interpretation ABG results: ABG ABG pH 7.37 pH Units (7.32-7.45) 12/31/17 00:31 ABG pCO2 64 mmHg (35-45) H 12/31/17 00:31 ABG pO2 69 mmHg (85-104) L 12/31/17 00:31 ABG O2 Saturation 92 % (95-98) L 12/31/17 00:31 Consult Discharge Plan - Plan Referrals: Soo Tineo CNP [Primary Care Provider] - 01/10/18 12:30 pm
[2018-01-05] MEDS: Ipratropium/Albuterol Neb 3 ML IH SCH ×4 (04:32→22:35)
[2018-01-05] MEDS: *HR* Heparin 5,000 UNIT/ML VIAL SQ SCH ×2 (05:55→17:55)
[2018-01-05] MEDS: methylPREDNISolone 125 MG/2 ML VIAL IVP SCH (05:56)
[2018-01-05 07:17] LABS: Calcium 9.6 mg/dL (8.6-10.3); Potassium 4.4 mEq/L (3.5-5.1)
[2018-01-05 07:33] LABS: Basophils % 0.3 %; Hemoglobin 12.4 g/dL (11.5-15.4); Immature Granulocytes % 1.9 % (0-4); Lymphocytes # 0.7 K/mcL (0.6-4.6); Lymphocytes % 8.8 %; Mean Corpuscular HGB Conc 32.6 g/dL (31.6-35.5); Mean Corpuscular Hemoglobin 31.2 pg (28.0-33.3); Mean Corpuscular Volume 95.5 fL (83.0-100.0); Mean Platelet Volume 10.4 fL (9.4-12.4); Monocytes # 0.4 K/mcL (0.0-1.3); Monocytes % 4.5 %; Neutrophils # 6.7 K/mcL (1.6-8.9); Platelet Count 208 K/mcL (140-400); Red Blood Count 3.98 M/mcL (3.82-4.97); Red Cell Distribution Width 12.3 % (11.5-14.5); Segmented Neutrophils % 84.5 %
[2018-01-05] MEDS: amLODIPine 5 MG TABLET PO SCH (08:51)
[2018-01-05] MEDS: Nicotine 21 MG PATCH.TD24 TD SCH (08:52)
[2018-01-05] MEDS: Insulin LISPRO 300 UNITS/3 ML VIAL SQ SCH ×4 (08:52→20:59)
[2018-01-05] MEDS: Levofloxacin 750 MG/150 ML 750 MG/150 ML BAG IVPB SCH (08:53)
[2018-01-05] MEDS: Insulin DETEMIR 100 UNIT/ML X5UNITS SQ SCH ×2 (08:59→20:59)
[2018-01-05] MEDS: Budesonide/Formoterol 160/4.5 MDI IH SCH ×2 (10:56→22:35)
[2018-01-05] MEDS: Tiotropium 18 MCG inhalation IH SCH (10:58)
--- NOTE | 2018-01-05 16:35 | Internal Med Progress Note ---
Date of Encounter: 01/05/18 Time of Encounter: 16:35 - Subjective Interval history: Interval changes: 01/01/2018: She feels her breathing is worse since she was admitted yesterday. Sounds very congested and very rhonchorous 01/02/2018 Breathing marginally better She still has considerable chest congestion BG continues to be elevated and insulin dosing adjusted again 01/03/2018: Lungs sound much better today Patient able to clear thick secretions today 01/04/2018: Still getting thick secretions up 01/05/2018: Breathing back to baseline No more chest congestion Ready to go home tomorrow COPD exacerbation: Continue Bronchodilators Muccinex added yesterday Solumedrol dose decreased Continue empiric antibiotics Respiratory panel and Procalcitonin ordered Concern for underlying viral infection Using Acapella device to help breakup secreations Steroids weaned again and changed to Prednisone in preparation for discharge DM-2: Comlicated by high-dose steroids Continue SSI Add Levemir 10 Units Sq AM and PB qACHS accuchecks (changed to High scale) Esssential HTN: Continue home medications - Constitutional Vitals: Temp Pulse Resp BP Pulse Ox 98.4 F 91 16 110/74 95 01/05/18 16:25 01/05/18 16:25 01/05/18 16:25 01/05/18 16:25 01/05/18 16:25 General appearance: Present: cooperative, mild distress, A&O X 3, pleasant, answers questions appropriately - Head Head exam: Present: atraumatic, normocephalic - Eye Eye exam: Present: PERRL, conjuntiva pink, sclera anicteric Pupils: Present: PERRL - Neck Neck exam general surgery: Present: supple, trachea midline. Absent: lymphadenopathy - Respiratory Respiratory exam: Present: CTAB. Absent: accessory muscle use, rales, rhonchi, wheezes - Cardiovascular Cardiovascular exam: Present: RRR, +S1, +S2. Absent: diastolic murmur, gallop, rubs, systolic murmur - GI/Abdominal GI/Abdominal exam: Present: normal bowel sounds, soft, no peritoneal signs. Absent: distended, tenderness - Extremities Exam Extremities exam: Present: warm, radial pulses palpable and symmetrical. Absent : calf tenderness, cyanotic, pedal edema - Neurological Exam Neurological exam: Present: CN II-XII intact, oriented X3, no focal deficits. Absent: pronater drift, facial droop, speech deficit - Psychiatric Psychiatric exam: Present: flat affect, normal mood - Skin Skin exam: Present: dry, intact Internal Medicine: Result - Labs CBC & Chem 7: 01/05/18 05:55 01/05/18 05:55 Labs: Short CBC 01/05/18 Range/Units 05:55 WBC 8.0 (4.3-11.1) K/mcL Hgb 12.4 (11.5-15.4) g/dL Hct 38.0 (35.3-44.9) % Plt Count 208 (140-400) K/mcL Neutrophils # 6.7 (1.6-8.9) K/mcL BMP 01/05/18 05:55 Sodium 134 L Potassium 4.4 Chloride 92 L Carbon Dioxide 35 H BUN 31 H Creatinine 1.20 Glucose 166 H Calcium 9.6 - ABG Interpretation ABG results: ABG ABG pH 7.37 pH Units (7.32-7.45) 12/31/17 00:31 ABG pCO2 64 mmHg (35-45) H 12/31/17 00:31 ABG pO2 69 mmHg (85-104) L 12/31/17 00:31 ABG O2 Saturation 92 % (95-98) L 12/31/17 00:31 Consult Discharge Plan - Plan Referrals: Soo Tineo CNP [Primary Care Provider] - 01/10/18 12:30 pm
[2018-01-05] MEDS: predniSONE 20 MG TABLET PO SCH (17:59)
[2018-01-06] MEDS: Ipratropium/Albuterol Neb 3 ML IH SCH ×4 (04:58→22:31)
[2018-01-06 05:13] LABS: Basophils % 0.3 %; Hematocrit 37.8 % (35.3-44.9); Hemoglobin 12.5 g/dL (11.5-15.4); Immature Granulocytes % 3.4 % (0-4); Lymphocytes # 0.6 K/mcL (0.6-4.6); Lymphocytes % 6.9 %; Mean Corpuscular HGB Conc 33.1 g/dL (31.6-35.5); Mean Corpuscular Hemoglobin 31.5 pg (28.0-33.3); Mean Corpuscular Volume 95.2 fL (83.0-100.0); Mean Platelet Volume 9.8 fL (9.4-12.4); Monocytes # 0.5 K/mcL (0.0-1.3); Monocytes % 5.5 %; Neutrophils # 7.7 K/mcL (1.6-8.9); Platelet Count 212 K/mcL (140-400); Red Blood Count 3.97 M/mcL (3.82-4.97); Red Cell Distribution Width 12.4 % (11.5-14.5); Segmented Neutrophils % 83.9 %
[2018-01-06] MEDS: *HR* Heparin 5,000 UNIT/ML VIAL SQ SCH ×2 (05:38→17:49)
[2018-01-06 06:22] LABS: Calcium 8.9 mg/dL (8.6-10.3); Potassium 4.4 mEq/L (3.5-5.1)
[2018-01-06] MEDS: Nicotine 21 MG PATCH.TD24 TD SCH (08:16)
[2018-01-06] MEDS: Insulin DETEMIR 100 UNIT/ML X5UNITS SQ SCH ×2 (08:16→20:46)
[2018-01-06] MEDS: predniSONE 20 MG TABLET PO SCH ×2 (08:16→17:49)
[2018-01-06] MEDS: amLODIPine 5 MG TABLET PO SCH (08:16)
[2018-01-06] MEDS: Insulin LISPRO 300 UNITS/3 ML VIAL SQ SCH ×4 (08:17→20:46)
[2018-01-06] MEDS: Budesonide/Formoterol 160/4.5 MDI IH SCH ×2 (09:41→22:31)
[2018-01-06] MEDS: Tiotropium 18 MCG inhalation IH SCH (09:44)
--- NOTE | 2018-01-06 16:02 | Internal Med Progress Note ---
Date of Encounter: 01/06/18 Time of Encounter: 16:02 - Subjective Interval history: Interval changes: 01/01/2018: She feels her breathing is worse since she was admitted yesterday. Sounds very congested and very rhonchorous 01/02/2018 Breathing marginally better She still has considerable chest congestion BG continues to be elevated and insulin dosing adjusted again 01/03/2018: Lungs sound much better today Patient able to clear thick secretions today 01/04/2018: Still getting thick secretions up 01/05/2018: Breathing back to baseline No more chest congestion 01/06/2018 Breathing well Steroid dose decreased Ready for discharge when placement ready COPD exacerbation: Continue Bronchodilators Muccinex added yesterday Solumedrol dose decreased Continue empiric antibiotics Respiratory panel and Procalcitonin ordered Concern for underlying viral infection Using Acapella device to help breakup secreations Steroids weaned again and changed to Prednisone in preparation for discharge DM-2: Comlicated by high-dose steroids Continue SSI Add Levemir 10 Units Sq AM and PB qACHS accuchecks (changed to High scale) Esssential HTN: Continue home medications - Constitutional Vitals: Temp Pulse Resp BP Pulse Ox 98.5 F 90 16 118/84 94 01/06/18 15:21 01/06/18 15:21 01/06/18 16:00 01/06/18 15:21 01/06/18 16:00 General appearance: Present: cooperative, mild distress, A&O X 3, pleasant, answers questions appropriately - Head Head exam: Present: atraumatic, normocephalic - Eye Eye exam: Present: PERRL, conjuntiva pink, sclera anicteric Pupils: Present: PERRL - Neck Neck exam general surgery: Present: supple, trachea midline. Absent: lymphadenopathy - Respiratory Respiratory exam: Present: CTAB. Absent: accessory muscle use, rales, rhonchi, wheezes - Cardiovascular Cardiovascular exam: Present: RRR, +S1, +S2. Absent: diastolic murmur, gallop, rubs, systolic murmur - GI/Abdominal GI/Abdominal exam: Present: normal bowel sounds, soft, no peritoneal signs. Absent: distended, tenderness - Extremities Exam Extremities exam: Present: warm, radial pulses palpable and symmetrical. Absent : calf tenderness, cyanotic, pedal edema - Neurological Exam Neurological exam: Present: CN II-XII intact, oriented X3, no focal deficits. Absent: pronater drift, facial droop, speech deficit - Skin Skin exam: Present: dry, intact Internal Medicine: Result - Labs CBC & Chem 7: 01/06/18 04:31 01/06/18 04:31 Labs: Short CBC 01/06/18 Range/Units 04:31 WBC 9.1 (4.3-11.1) K/mcL Hgb 12.5 (11.5-15.4) g/dL Hct 37.8 (35.3-44.9) % Plt Count 212 (140-400) K/mcL Neutrophils # 7.7 (1.6-8.9) K/mcL BMP 01/06/18 04:31 Sodium 134 L Potassium 4.4 Chloride 93 L Carbon Dioxide 32 H BUN 29 H Creatinine 1.59 H Glucose 214 H Calcium 8.9 - ABG Interpretation ABG results: ABG ABG pH 7.37 pH Units (7.32-7.45) 12/31/17 00:31 ABG pCO2 64 mmHg (35-45) H 12/31/17 00:31 ABG pO2 69 mmHg (85-104) L 12/31/17 00:31 ABG O2 Saturation 92 % (95-98) L 12/31/17 00:31 Consult Discharge Plan - Plan Referrals: Soo Tineo CNP [Primary Care Provider] - 01/10/18 12:30 pm
[2018-01-07] MEDS: Ipratropium/Albuterol Neb 3 ML IH SCH ×4 (03:59→21:04)
[2018-01-07 05:22] LABS: Basophils # 0.1 K/mcL (0.0-0.2); Basophils % 0.6 %; Hemoglobin 12.5 g/dL (11.5-15.4); Immature Granulocytes % 4.8 % (0-4); Lymphocytes # 0.8 K/mcL (0.6-4.6); Mean Corpuscular HGB Conc 32.1 g/dL (31.6-35.5); Mean Corpuscular Hemoglobin 31.1 pg (28.0-33.3); Mean Platelet Volume 9.8 fL (9.4-12.4); Monocytes # 0.4 K/mcL (0.0-1.3); Monocytes % 3.4 %; Neutrophils # 9.9 K/mcL (1.6-8.9); Platelet Count 180 K/mcL (140-400); Red Blood Count 4.02 M/mcL (3.82-4.97); Red Cell Distribution Width 12.4 % (11.5-14.5); Segmented Neutrophils % 84.2 %
[2018-01-07 05:39] LABS: Calcium 8.9 mg/dL (8.6-10.3); Potassium 4.6 mEq/L (3.5-5.1)
[2018-01-07] MEDS: *HR* Heparin 5,000 UNIT/ML VIAL SQ SCH ×2 (06:28→17:57)
[2018-01-07] MEDS: predniSONE 20 MG TABLET PO SCH ×2 (08:26→17:56)
[2018-01-07] MEDS: Insulin LISPRO 300 UNITS/3 ML VIAL SQ SCH ×4 (08:26→22:13)
[2018-01-07] MEDS: Nicotine 21 MG PATCH.TD24 TD SCH (08:27)
[2018-01-07] MEDS: Levofloxacin 750 MG/150 ML 750 MG/150 ML BAG IVPB SCH (08:28)
[2018-01-07] MEDS: amLODIPine 5 MG TABLET PO SCH (08:29)
--- NOTE | 2018-01-07 10:16 | Internal Med Progress Note ---
Date of Encounter: 01/07/18 Time of Encounter: 10:15 - Subjective Interval history: Interval changes: 01/01/2018: She feels her breathing is worse since she was admitted yesterday. Sounds very congested and very rhonchorous 01/02/2018 Breathing marginally better She still has considerable chest congestion BG continues to be elevated and insulin dosing adjusted again 01/03/2018: Lungs sound much better today Patient able to clear thick secretions today 01/04/2018: Still getting thick secretions up 01/05/2018: Breathing back to baseline No more chest congestion 01/06/2018 Breathing well Steroid dose decreased Ready for discharge when placement ready 01/07/2018: Still waitin for placement Geting angry and frustrated waiting for placement Medically ready for d/c for days Length of stay increased by family decision to change facilities COPD exacerbation: Continue Bronchodilators Muccinex added yesterday Solumedrol dose decreased Continue empiric antibiotics Respiratory panel and Procalcitonin ordered Concern for underlying viral infection Using Acapella device to help breakup secreations Steroids weaned again and changed to Prednisone in preparation for discharge DM-2: Comlicated by high-dose steroids Continue SSI Add Levemir 10 Units Sq AM and PB qACHS accuchecks (changed to High scale) Esssential HTN: Continue home medications - Constitutional Vitals: Temp Pulse Resp BP Pulse Ox 98.5 F 89 14 122/79 95 01/07/18 07:03 01/07/18 07:03 01/07/18 07:03 01/07/18 07:03 01/07/18 07:03 General appearance: Present: cooperative, mild distress, A&O X 3, pleasant, answers questions appropriately - Head Head exam: Present: atraumatic, normocephalic - Eye Eye exam: Present: PERRL, conjuntiva pink, sclera anicteric Pupils: Present: PERRL - Neck Neck exam general surgery: Present: supple, trachea midline. Absent: lymphadenopathy - Respiratory Respiratory exam: Present: CTAB. Absent: accessory muscle use, rales, rhonchi, wheezes - Cardiovascular Cardiovascular exam: Present: RRR, +S1, +S2. Absent: diastolic murmur, gallop, rubs, systolic murmur - GI/Abdominal GI/Abdominal exam: Present: normal bowel sounds, soft, no peritoneal signs. Absent: distended, tenderness - Extremities Exam Extremities exam: Present: warm, radial pulses palpable and symmetrical. Absent : calf tenderness, cyanotic, pedal edema - Neurological Exam Neurological exam: Present: CN II-XII intact, oriented X3, no focal deficits. Absent: pronater drift, facial droop, speech deficit - Skin Skin exam: Present: dry, intact Internal Medicine: Result - Labs CBC & Chem 7: 01/07/18 05:09 01/07/18 05:09 Labs: Short CBC 01/07/18 Range/Units 05:09 WBC 11.8 H (4.3-11.1) K/mcL Hgb 12.5 (11.5-15.4) g/dL Hct 39.0 (35.3-44.9) % Plt Count 180 (140-400) K/mcL Neutrophils # 9.9 H (1.6-8.9) K/mcL BMP 01/07/18 05:09 Sodium 137 Potassium 4.6 Chloride 97 L Carbon Dioxide 34 H BUN 32 H Creatinine 1.21 H Glucose 177 H Calcium 8.9 - ABG Interpretation ABG results: ABG ABG pH 7.37 pH Units (7.32-7.45) 12/31/17 00:31 ABG pCO2 64 mmHg (35-45) H 12/31/17 00:31 ABG pO2 69 mmHg (85-104) L 12/31/17 00:31 ABG O2 Saturation 92 % (95-98) L 12/31/17 00:31 Consult Discharge Plan - Plan Referrals: Soo Tineo CNP [Primary Care Provider] - 01/10/18 12:30 pm
[2018-01-07] MEDS: Tiotropium 18 MCG inhalation IH SCH (10:57)
[2018-01-07] MEDS: Budesonide/Formoterol 160/4.5 MDI IH SCH ×2 (11:05→21:04)
[2018-01-07] MEDS: Insulin DETEMIR 100 UNIT/ML X5UNITS SQ SCH ×2 (11:59→22:13)
[2018-01-08] MEDS: Ipratropium/Albuterol Neb 3 ML IH SCH ×2 (04:07→10:13)
[2018-01-08 04:56] LABS: Hematocrit 38.5 % (35.3-44.9); Hemoglobin 12.6 g/dL (11.5-15.4); Mean Corpuscular HGB Conc 32.7 g/dL (31.6-35.5); Mean Corpuscular Hemoglobin 30.7 pg (28.0-33.3); Mean Corpuscular Volume 93.9 fL (83.0-100.0); Mean Platelet Volume 9.6 fL (9.4-12.4); Platelet Count 215 K/mcL (140-400); Red Cell Distribution Width 12.6 % (11.5-14.5)
[2018-01-08 05:12] LABS: Calcium 8.9 mg/dL (8.6-10.3); Potassium 4.4 mEq/L (3.5-5.1)
[2018-01-08 05:29] LABS: Lymphocytes # 0.6 K/mcL (0.6-4.6); Monocytes # 0.9 K/mcL (0.0-1.3); Neutrophils # 12.9 K/mcL (1.6-8.9); Platelet Estimate Normal (Normal)
[2018-01-08] MEDS: *HR* Heparin 5,000 UNIT/ML VIAL SQ SCH (06:19)
[2018-01-08] MEDS: Tiotropium 18 MCG inhalation IH SCH (07:32)
[2018-01-08] MEDS: Insulin DETEMIR 100 UNIT/ML X5UNITS SQ SCH (08:58)
[2018-01-08] MEDS: Insulin LISPRO 300 UNITS/3 ML VIAL SQ SCH ×2 (08:58→12:13)
[2018-01-08] MEDS: amLODIPine 5 MG TABLET PO SCH (08:58)
[2018-01-08] MEDS: predniSONE 20 MG TABLET PO SCH (08:58)
[2018-01-08] MEDS: Nicotine 21 MG PATCH.TD24 TD SCH (08:59)
[2018-01-08] MEDS ORDERED: predniSONE 20 MG TABLET PO SCH (09:00)
[2018-01-08] MEDS: Budesonide/Formoterol 160/4.5 MDI IH SCH (10:13)
[2018-01-08 11:21] VITALS: BP 119/78
--- NOTE | 2018-01-08 12:48 | Discharge Summary ---
Date of Encounter: 01/08/18 Time of Encounter: 11:10 - Discharge Diagnosis (1) COPD exacerbation Priority: Secondary Status: Acute Comments: Acute exacerbation. Pt is on 2L 02, titrate prn to maintain sats > 92%. Pt with wheezing in bilateral anterior upper airways, continue Prednisone 40mg po and taper. Respiratory infectious panel negative. Continue bronchodilators, Mucinex, Empiric antibiotics. Pt is in no distress, speaks easily in full sentences. (2) Diabetes mellitus Priority: Secondary Status: Chronic Comments: Chronic. Continue home medications. Qualifiers: Diabetes mellitus type: type 2 Diabetes mellitus chcf insulin use: without chcf use Diabetes mellitus complication status: without complication Qualified Code(s): E11.9 - Type 2 diabetes mellitus without complications (3) Hypertension Priority: Secondary Status: Chronic Comments: Chronic. Well controlled. Continue home medications. Qualifiers: Hypertension type: essential hypertension Qualified Code(s): I10 - Essential (primary) hypertension (4) Dyspnea Priority: Secondary Status: Resolved Comments: Resolved. Pt with faint wheezing heard in anterior upper airways, pt denies dyspnea or cough. Pt has been placed on steroids, dose decreased today after 2 days on Prednisone 40mg po BID> Dose decreased to 40mg po daily and will taper at ECF. Continue 02 at ECF, titrate to maintain sats > 92% PRN. Qualifiers: Dyspnea type: unspecified Qualified Code(s): R06.00 - Dyspnea, unspecified (5) DVT prophylaxis Priority: Secondary Status: Acute Comments: Heparin BID Hospital course: Ms. Barraza is a 62 year old female with PMH of COPD, HTN, DM who presented to the ED for SOB and wheezing, was admitted on 12/31 for AECOPD. Pt was admitted and treated with 02, steroids, antibiotics, and bronchodilators. Pt [facility] and when pt was accepted, her family decided that she should go to another. She has been accepted at [facility] and will be transferred there today in stable condition. Physical exam unremarkable other than wheezing heard in upper anterior airways, pt is on prednisone for same, this also is most likely the cause of her mild leukocytosis since she was restarted on Prednisone 40mg po BID on 01/02. Dose was decreased today. Pt has no fever, chills, tacycardia and she is normotensive. No signs of SIRS or Sepsis. Pt states that she is feeling better and is ready for discharge. Length of stay was increased due to family's change of ECF at the end of her stay. Pt is stable and appropriate for discharge to ECF. Discharge discussed with: patient, nurse, social work - Time Spent with Patient Total time spent providing and/or coordinating discharge services: Less than 30 minutes - Discharge Medications Prescriptions: diazePAM [Valium] 5 mg PO BID PRN 1 Days #2 tablet PRN Reason: Anxiety Levofloxacin [Levaquin] 750 mg PO DAILY #5 tablet Home Medications: Albuterol Sulfate [Proair Hfa] 1 - 2 puff IH DAILY 02/08/17 [History] Aripiprazole [Abilify] 15 mg PO DAILY 02/08/17 [History] Escitalopram Oxalate 10 mg PO DAILY 02/08/17 [History] Megestrol Acetate [Megace] 40 ml PO DAILY 02/08/17 [History] Metoprolol [Lopressor] 25 mg PO DAILY 02/08/17 [History] Mirtazapine [Remeron] 30 mg PO HS 02/08/17 [History] Tiotropium [Spiriva] 18 mcg IH DAILY 02/08/17 [History] Budesonide/Formoterol 160/4.5 [Symbicort 160/4.5] 2 puff IH BIDR #1 inhaler [Rx] Amlodipine Besylate 5 mg PO DAILY 12/14/17 [History] Aspirin [Lo-Dose Aspirin EC] 81 mg PO DAILY 12/14/17 [History] Cholecalciferol (Vitamin D3) [Vitamin D3] 50,000 unit PO QWEEK 12/14/17 [History ] Cyanocobalamin (B-12) [Vitamin B12] 3,000 mcg PO DAILY 12/14/17 [History] Ferrous Sulfate [Iron] 325 mg PO BID 12/14/17 [History] Folic Acid 1 mg PO DAILY 12/14/17 [History] Linagliptin [Tradjenta] 5 mg PO DAILY 12/14/17 [History] Omeprazole [PriLOSEC] 40 mg PO DAILY 12/14/17 [History] Simvastatin [Zocor] 10 mg PO HS 12/14/17 [History] Pioglitazone HCl [Actos] 30 mg PO DAILY 12/30/17 [History] GuaiFENesin ER [Mucinex] 1,200 mg PO BID tbbp.12hr 01/08/18 [Rx] Levofloxacin [Levaquin] 750 mg PO DAILY #5 tablet 01/08/18 [Rx] Nicotine Patch [Nicoderm] 21 mg TD DAILY patch.td24 01/08/18 [Rx] diazePAM [Valium] 5 mg PO BID PRN 1 Days #2 tablet 01/08/18 [Rx] Allergies/Adverse Reactions: 3 Allergy/AdvReac Type Severity Reaction Status Date / Time No Known Allergies Allergy Unverified 12/14/17 14:09 Date of admission: 12/31/17 01:35 Primary care physician: Soo Tineo Consults: 01/02/18 22:27 Consult to Respiratory Therapy [CONS] Routine Reason for Consult: COPD exacerbation Order Acapella to help with thick secretions Time Notified: 22:28 Call Completed: No 01/04/18 14:42 Consult to Physical Therapy [CONS] Routine Comment: Evaluate, develop and implement POC Reason for Consult: Weakness eval for rehab Does patient have active BEDREST order?: No Is patient medically & hemodynamically stable?: No Patient assessed for mobility or mobilized this visit?: No 01/04/18 14:43 Consult to Occupational Therapy [CONS] Routine Comment: Evaluate, develop and implement POC Reason for Consult: Weaknes eval for rehab Does patient have active BEDREST order?: No Is patient medically & hemodynamically stable?: Yes Patient assessed for mobility or mobilized this visit?: No Discharging clinician: Diane Hanna Anticipated date of discharge: 01/08/18 - Constitutional Vitals: Temp Pulse Resp BP Pulse Ox 98.6 F 62 14 119/78 95 01/08/18 11:20 01/08/18 11:20 01/08/18 11:20 01/08/18 11:20 01/08/18 11:20 General appearance: Present: cooperative, mild distress, A&O X 3, pleasant, no acute distress, answers questions appropriately - Head Head exam: Present: atraumatic, normal inspection, normocephalic - Eye Eye exam: Present: normal appearance, conjuntiva pink, sclera anicteric - Neck Neck exam general surgery: Present: supple, trachea midline. Absent: lymphadenopathy, tenderness - Respiratory Respiratory exam: Present: CTAB, wheezes. Absent: accessory muscle use, rales, respiratory distress, rhonchi - Cardiovascular Cardiovascular exam: Present: RRR, +S1, +S2. Absent: diastolic murmur, gallop, rubs, systolic murmur - GI/Abdominal GI/Abdominal exam: Present: normal bowel sounds, soft, no peritoneal signs. Absent: distended, hepatomegaly, tenderness - Extremities Exam Extremities exam: Present: normal capillary refill, normal inspection, warm, radial pulses palpable and symmetrical. Absent: calf tenderness, cyanotic, pedal edema, tenderness - Neurological Exam Neurological exam: Present: alert, oriented X3, no focal deficits. Absent: facial droop, speech deficit - Skin Skin exam: Present: dry, intact, normal color, warm. Absent: rash - Patient Status Disposition: Transfer SNF Functional capacity at discharge: uses cane/walker Overall status at discharge: patient is not back to baseline - Discharge Instructions Follow Up With: Soo Tineo CNP [Primary Care Provider] - 01/10/18 12:30 pm - Diet and Activity Activity: as per physical therapy Diet: diabetic diet, low fat, low cholesterol
--- NOTE | 2018-01-08 13:09 | Physician Discharge Referral ---
ExtendedCare Referral Info Transfer To: [place] Provider in Charge after Transfer: PCP Institutional Level of Care: Intermediate - Diagnosis (1) COPD exacerbation Priority: Primary Status: Acute (2) Diabetes mellitus Priority: Secondary Status: Chronic (3) Hypertension Priority: Secondary Status: Chronic (4) Dyspnea Priority: Secondary Status: Resolved (5) DVT prophylaxis Priority: Secondary Status: Acute - Transfer Medications Prescriptions: diazePAM [Valium] 5 mg PO BID PRN 1 Days #2 tablet PRN Reason: Anxiety Levofloxacin [Levaquin] 750 mg PO DAILY #5 tablet Home Medications: Albuterol Sulfate [Proair Hfa] 1 - 2 puff IH DAILY 02/08/17 [History] Aripiprazole [Abilify] 15 mg PO DAILY 02/08/17 [History] Escitalopram Oxalate 10 mg PO DAILY 02/08/17 [History] Megestrol Acetate [Megace] 40 ml PO DAILY 02/08/17 [History] Metoprolol [Lopressor] 25 mg PO DAILY 02/08/17 [History] Mirtazapine [Remeron] 30 mg PO HS 02/08/17 [History] Tiotropium [Spiriva] 18 mcg IH DAILY 02/08/17 [History] Budesonide/Formoterol 160/4.5 [Symbicort 160/4.5] 2 puff IH BIDR #1 inhaler [Rx] Amlodipine Besylate 5 mg PO DAILY 12/14/17 [History] Aspirin [Lo-Dose Aspirin EC] 81 mg PO DAILY 12/14/17 [History] Cholecalciferol (Vitamin D3) [Vitamin D3] 50,000 unit PO QWEEK 12/14/17 [History ] Cyanocobalamin (B-12) [Vitamin B12] 3,000 mcg PO DAILY 12/14/17 [History] Ferrous Sulfate [Iron] 325 mg PO BID 12/14/17 [History] Folic Acid 1 mg PO DAILY 12/14/17 [History] Linagliptin [Tradjenta] 5 mg PO DAILY 12/14/17 [History] Omeprazole [PriLOSEC] 40 mg PO DAILY 12/14/17 [History] Simvastatin [Zocor] 10 mg PO HS 12/14/17 [History] Pioglitazone HCl [Actos] 30 mg PO DAILY 12/30/17 [History] GuaiFENesin ER [Mucinex] 1,200 mg PO BID tbbp.12hr 01/08/18 [Rx] Levofloxacin [Levaquin] 750 mg PO DAILY #5 tablet 01/08/18 [Rx] Nicotine Patch [Nicoderm] 21 mg TD DAILY patch.td24 01/08/18 [Rx] diazePAM [Valium] 5 mg PO BID PRN 1 Days #2 tablet 01/08/18 [Rx] Allergies/Adverse Reactions: 3 Allergy/AdvReac Type Severity Reaction Status Date / Time No Known Allergies Allergy Unverified 12/14/17 14:09 - Respiratory Orders Oxygen / L per min (2liters/nasal canula, titrate prn to maintain sats > 92%) Smoking Cessation: Smoking cessation has been advised. For more information, call the [place] Tobacco Quit Line at 9-974-QXUX-NOW. - Lab Orders Lab Orders: 2 Step Mantoux Test per State regulation, CBC, U/A, Kishore 17, CXR yearly - Ancillary Orders May use pressure relief devices daily prn, May consult with Dentist, Eating Disorder Specialist, Timber Treating Tank Operator PRN - Advance Directives Code Status: Full Code - Mobility Orders Other - Rehabiliation Orders Rehab Potential: Fair Rehab Orders: Sternal Precautions, ROM Exercises, Evaluation for Physical Therapy, Evaluation for Occupational Therapy - Treatments Skin tear care topically daily PRN per policy, May check for fecal impaction rectally daily PRN, Fleet enema rectally every other day PRN cleansing purposes - Diet Orders Regular, No Concentrated Sweets CERTIFICATION: I certify that the transfer of the above named patient to an Extended Care Facility is necessary for the continuing treatment of the diagnosis listed. The above information is true and accurate reflection of patient's current condition. Confidential - Redisclosure prohibited without a patient's written consent.
== END 2018-01-08 14:49 | DRG 140 ==
LOC: 3BNU
PROVIDERS: ADMIT Student in an Organized Health Care Education/Training Program; ATTEND Registered Nurse

== ENCOUNTER 2019-04-23 21:19 | Inpatient (IN) ==
[2019-04-24] MEDS ORDERED: *HR* Promethazine 25 MG/ML VIAL IVP PRN (00:30)
[2019-04-24] MEDS ORDERED: Naloxone 0.4 MG/ML INJ IVP PRN (00:30)
[2019-04-24] MEDS ORDERED: Ondansetron 4 MG/2 ML VIAL IVP PRN (00:30)
[2019-04-24] MEDS ORDERED: Dextrose Gel 15 GM/37.5 ML TUBE PO PRN ×2 (00:32)
[2019-04-24] MEDS ORDERED: *HR* Heparin 5,000 UNIT/ML VIAL IVP PRN ×2 (00:32)
[2019-04-24] MEDS ORDERED: *HR* Heparin 5,000 UNIT/ML VIAL IVP ONE (00:32)
[2019-04-24] MEDS ORDERED: D5% in Water 1,000 ML IVC PRN (00:32)
[2019-04-24] MEDS ORDERED: *HR* Dextrose 50 % in Water (Syg) 50 ML SYRINGE IVP PRN (00:32)
[2019-04-24] MEDS ORDERED: Heparin 25,000 UNIT/250 ML D5W 25,000 UNIT/250 ML IV.SOLN IVC SCH (00:45)
--- NOTE | 2019-04-24 01:03 | Internal Med History&Physical ---
<Lora Mckeon R - Last Filed: 04/24/19 03:13> Date of Encounter: 04/24/19 Time of Encounter: 00:56 Internal Medicine - H&P: HPI History of present illness: Ms. Barraza is a 64 year old female with PMHx of DM, COPD with 2L oxygen at night and HLD presents to [place] as a transfer from [place]. The patient initially presented to [place] due to worsening shortness of breath and increased dizziness. This had been going on for the past 3-4 days but worsened yesterday. She also noted a right facial droop which started around the same time as her dizziness. She has been taking all her medications as prescribed and has never had a CVA or TIA in the past. She denies recorded fever, chest pain, abdominal pain, nausea and vomiting. She has been having headaches intermittently over the past several weeks but has not taken anything for them and they are not severe. She admits to a productive cough and chills. She has not noticed any unilateral leg swelling or leg pain and denies personal history of blood clots. She admits to increasing her home oxygen to 3L at night due to her increased shortness of breath. At [place] she was noted to have the right sided facial droop and had a CT scan of her head which was negative for acute ischemic changes. The patient became more somnolent and she was then placed on BiPAP. She received Rocephin and azithromycin for presumed COPD exacerbation prior to transport along with IV steroids. The patient states she feels much better at this time and is resting comfortably. Pt is full code. Past Med Surg Social Fam HX - Past Medical History Attestation: Yes The following information was validated with the patient. Source: patient, old records reviewed Medical history: arthritis, asthma, COPD, coronary artery disease, diabetes, OSMEL D, hypertension, peripheral artery disease, renal disease Additional medical history: pvd Psychiatric history: anxiety, depression - Past Surgical History Surgical History: hysterectomy Additional surgical history: Dental. eye - Social History Smoking Status: Current every day smoker Smokeless Tobacco Status: No Alcohol use: none Drug use: none - Family History Mother Hx Family Cardiac Disorders: Yes Father Living Status: Hx Family Cardiac Disorders: Yes Internal Medicine - H&P: Meds Albuterol Sulfate [Proair Hfa] 1 - 2 puff IH DAILY 02/08/17 [History] Aripiprazole [Abilify] 15 mg PO DAILY 02/08/17 [History] Escitalopram Oxalate 10 mg PO DAILY 02/08/17 [History] Tiotropium [Spiriva] 18 mcg IH DAILY 02/08/17 [History] Budesonide/Formoterol 160/4.5 [Symbicort 160/4.5] 2 puff IH BIDR #1 inhaler 02/11/17 [Rx] Cholecalciferol (Vitamin D3) [Vitamin D3] 50,000 unit PO QWEEK 12/14/17 [History] Cyanocobalamin (B-12) [Vitamin B12] 3,000 mcg PO DAILY 12/14/17 [History] Linagliptin [Tradjenta] 5 mg PO DAILY 12/14/17 [History] Simvastatin [Zocor] 10 mg PO HS 12/14/17 [History] Pioglitazone HCl [Actos] 30 mg PO DAILY 12/30/17 [History] Nicotine Patch [Nicoderm] 21 mg TD DAILY patch.td24 01/08/18 [Rx] Ascorbic Acid [C-500] 500 mg PO DAILY #30 tablet 12/05/18 [Rx] Ferrous Sulfate 325 mg PO DAILY #30 tablet 12/05/18 [Rx] Ascorbic Acid [Vitamin C] 500 mg PO 0630 tablet 01/03/19 [Rx] Ferrous Sulfate 325 mg PO 0630 tablet 01/03/19 [Rx] MOM Conc [MILK OF MAGNESIA conc] 10 ml PO DAILY PRN ud.liq 01/03/19 [Rx] Mag Hydrox/Al Hydrox/Simeth [Maalox] 15 ml PO Q6HR PRN udc 01/03/19 [Rx] Mirtazapine [Remeron] 15 mg PO HS #0 01/03/19 [Rx] Allergy/AdvReac Type Severity Reaction Status Date / Time No Known Allergies Allergy Verified 04/23/19 17:20 All Systems PM: A 10-system review of systems was performed and is negative for pertinent fin dings except as documented above in the HPI. - Constitutional Constitutional: chills, fatigue, weakness, no fever(s) - EENT Eyes: no blurry vision, no change in vision - Cardiovascular Cardiovascular ROS IM: dyspnea, dyspnea on exertion, lightheadedness, no chest pain, no palpitations, no syncope - Respiratory Respiratory: cough, dyspnea, excessive phlegm production, change in phlegm color, no wheezing - Gastrointestinal Gastrointestinal: no abdominal pain, no constipation, no diarrhea, no nausea, no vomiting - Neurological Neurological ROS: vertigo, weakness - Psychiatric Psychiatric: no confusion - Constitutional Vitals: Temp Pulse Resp BP Pulse Ox 97.2 F L 88 22 112/65 90 04/23/19 23:41 04/23/19 23:41 04/23/19 23:41 04/23/19 23:41 04/23/19 23:41 General appearance: Present: A&O X 3, pleasant, no acute distress, answers q uestions appropriately Exam: Pt on BiPAP therefore facial droop was not noticable. Pt breathing easily in NAD. - Head Head exam: Present: atraumatic, normocephalic - Eye Eye exam: Present: EOMI, PERRL - Neck Neck exam general surgery: Present: normal inspection. Absent: tenderness - Respiratory Respiratory exam: Present: decreased breath sounds. Absent: rales, rhonchi, wheezes - Cardiovascular Cardiovascular exam: Present: RRR - GI/Abdominal GI/Abdominal exam: Present: soft. Absent: distended, firm, guarding, rebound, rigid, tenderness - Extremities Exam Extremities exam: Absent: pedal edema, tenderness - Neurological Exam Neurological exam: Present: alert, oriented X3 - Skin Skin exam: Present: dry, intact, warm Internal Med - H&P Results - Labs CBC & Chem 7: 04/24/19 00:50 04/24/19 00:50 - Assessment and Plan (1) Acute hypercapnic respiratory failure Current Visit: Yes Status: Acute Assessment and plan: Pt with initialy abg pH 7.26 with CO2 of 87 Placed on BiPAP with good effect CXR without acute disease process Given steroids, Rocephin and azithromycin for presumed COPD exacerbation Scheduled Duonebs q4H Continue azithromycin and steroids for anti-inflammatory effect Procal wnl Continue to monitor patients respiratory and mental status (2) Elevated troponin I level Current Visit: Yes Status: Acute Assessment and plan: Trop of 0.11 No cardiac history Denies chest pain but has been acutely short of breath No acute EKG changes besides tachycardia Likely demand ischemia Repeat troponin 0.07 Heparin ggt (3) COPD exacerbation Current Visit: Yes Status: Acute Assessment and plan: Treatment as above for acute hypercapnic respiratory failure (4) Hypertension Current Visit: Yes Status: Chronic Assessment and plan: Continue home meds Qualifiers: Hypertension type: essential hypertension Qualified Code(s): I10 - Essential (primary) hypertension (5) Diabetes mellitus Current Visit: Yes Status: Chronic Assessment and plan: Accu-cheks q6H Low dose SSI Qualifiers: Diabetes mellitus type: type 2 Diabetes mellitus custodial insulin use: without terminal worker use Diabetes mellitus complication status: without complication Qualified Code(s): E11.9 - Type 2 diabetes mellitus without complications (6) Weakness on right side of face Current Visit: Yes Status: Acute Assessment and plan: New onset facial weakness [address] head was negative for ischemic process Continue t monitor Consider MRI/neuro consult if does not improve (7) DVT prophylaxis Current Visit: Yes Status: Acute Assessment and plan: Heparin ggt - Time Spent With Patient Total time spent is greater than 50% in coordination of care (as documented) at patient's floor/unit and/or counseling patient: <Antonio Gilbert - Last Filed: 04/24/19 07:17> Date of Encounter: 04/24/19 Internal Medicine - H&P: HPI History of present illness: Ms. Barraza is a 64 year old female All Systems PM: A 10-system review of systems was performed and is negative for pertinent findings except as documented above in the HPI. - Constitutional Vitals: Temp Pulse Resp BP Pulse Ox 97.6 F 70 16 128/68 90 04/24/19 03:02 04/24/19 05:15 04/24/19 04:24 04/24/19 03:02 04/24/19 04:24 Internal Med - H&P Results - Labs CBC & Chem 7: 04/24/19 00:50 04/24/19 00:50 Labs: Short CBC 04/24/19 Range/Units 00:50 WBC 10.4 (4.3-11.1) K/mcL Hgb 12.3 (11.5-15.4) g/dL Hct 39.7 (35.3-44.9) % Plt Count 158 (140-400) K/mcL Neutrophils # 9.7 H (1.6-8.9) K/mcL BMP 04/24/19 00:50 Sodium 134 L Potassium 4.3 Chloride 94 L Carbon Dioxide 34 H BUN 11 Creatinine 1.13 Glucose 157 H Calcium 9.4 Cardiac Enzymes 04/24/19 Range/Units 00:50 Troponin I 0.07 H* (< 0.04) ng/mL - Time Spent With Patient Total time spent is greater than 50% in coordination of care (as documented) at patient's floor/unit and/or counseling patient: - Attending Attestation I saw and evaluated the patient. I reviewed the residents note, performed my own physical examination and agree with findings and plan as documented in the residents note. Patient seen and examined on 04/24/19. Patient presented to the [place] ER with feelings of dizziness and worsening respiratory status. Found to have elevated pCO2 of 87. She was started on BiPAP. Also had possible stroke with facial droop. Patient did not seem to have facial droop on exam. Will have PT/OT eval as well. Elevated troponin, started on heparin drip. Obtain an echo in the morning. Continue to monitor.
[2019-04-24 01:16] LABS: Basophils % 0.2 %; Hematocrit 39.7 % (35.3-44.9); Hemoglobin 12.3 g/dL (11.5-15.4); Immature Granulocytes % 0.6 % (0-4); Lymphocytes # 0.6 K/mcL (0.6-4.6); Lymphocytes % 6.1 %; Mean Corpuscular Hemoglobin 31.1 pg (28.0-33.3); Mean Corpuscular Volume 100.5 fL (83.0-100.0); Mean Platelet Volume 9.7 fL (9.4-12.4); Monocytes # 0.1 K/mcL (0.0-1.3); Monocytes % 0.6 %; Neutrophils # 9.7 K/mcL (1.6-8.9); Platelet Count 158 K/mcL (140-400); Red Blood Count 3.95 M/mcL (3.82-4.97); Red Cell Distribution Width 13.5 % (11.5-14.5); Segmented Neutrophils % 92.5 %; White Blood Count 10.4 K/mcL (4.3-11.1)
[2019-04-24 01:27] LABS: Heparin anti-factor XA UFH 0.02 IU/mL (0.30-0.70)
[2019-04-24 01:28] LABS: Prothrombin Time 11.1 Seconds (9.4-12.1)
[2019-04-24 01:35] LABS: Calcium 9.4 mg/dL (8.6-10.3); Magnesium 1.7 mg/dL (1.6-2.6); Phosphorous 2.8 mg/dL (2.7-4.5); Potassium 4.3 mEq/L (3.5-5.1)
[2019-04-24] MEDS: Ipratropium/Albuterol Neb 3 ML IH SCH ×6 (04:24→23:18)
[2019-04-24] MEDS: Insulin LISPRO 300 UNITS/3 ML VIAL SQ SCH ×4 (06:31→21:08)
[2019-04-24] MEDS: MethylPREDNISolone 40 MG/ML VIAL IVP SCH (07:51)
[2019-04-24] MEDS: Azithromycin 500 MG in D5% in Water 250 ML IVPB SCH (11:34)
[2019-04-24] MEDS ORDERED: cefTRIAXone 2,000 MG in Water for inj. (sterile) 20 ML IVP SCH (12:00)
--- NOTE | 2019-04-24 12:41 | Event Note ---
Date of Encounter: 04/24/19 Time of Encounter: 12:40 Patient is awake and alert. Currently on BiPAP. Reports that her shortness of breath is improving overall. On exam, I do not appreciate any facial droop. Patient has bilateral end expiratory wheezing. No other focal weakness or numbness. Continue bronchodilators. Awaiting 2-D echocardiogram. Troponins adynamic. Stop Heparin drip. Start cardiac diet. Will place patient on aspirin. Continue statin.
[2019-04-24] MEDS: Aspirin Enteric Coated 81 MG Tablet PO SCH (15:53)
[2019-04-25] MEDS: Ipratropium/Albuterol Neb 3 ML IH SCH ×6 (04:39→23:10)
[2019-04-25 06:52] LABS: Basophils % 0.1 %; Hematocrit 33.4 % (35.3-44.9); Immature Granulocytes % 0.3 % (0-4); Lymphocytes # 0.9 K/mcL (0.6-4.6); Lymphocytes % 7.7 %; Mean Corpuscular HGB Conc 31.7 g/dL (31.6-35.5); Mean Corpuscular Hemoglobin 31.3 pg (28.0-33.3); Mean Corpuscular Volume 98.5 fL (83.0-100.0); Mean Platelet Volume 10.3 fL (9.4-12.4); Monocytes # 0.7 K/mcL (0.0-1.3); Monocytes % 6.2 %; Platelet Count 154 K/mcL (140-400); Red Blood Count 3.39 M/mcL (3.82-4.97); Red Cell Distribution Width 13.3 % (11.5-14.5); Segmented Neutrophils % 85.7 %; White Blood Count 11.7 K/mcL (4.3-11.1)
[2019-04-25 07:14] LABS: Calcium 9.6 mg/dL (8.6-10.3); Potassium 4.6 mEq/L (3.5-5.1)
[2019-04-25] MEDS: Insulin LISPRO 300 UNITS/3 ML VIAL SQ SCH ×4 (07:39→21:11)
[2019-04-25] MEDS: MethylPREDNISolone 40 MG/ML VIAL IVP SCH (07:39)
[2019-04-25] MEDS: Aspirin Enteric Coated 81 MG Tablet PO SCH (07:39)
[2019-04-25 07:48] LABS: Hemoglobin 10.6 g/dL (11.5-15.4)
[2019-04-25] MEDS: Azithromycin 500 MG in D5% in Water 250 ML IVPB SCH (11:24)
--- NOTE | 2019-04-25 15:05 | Internal Med Progress Note ---
Hospitalist Progress Note - Encounter Date of Encounter: 04/25/19 Time of Encounter: 14:54 - Subjective Interval History: Evaluated patient earlier today. Denies any new complaints. Feels that her breathing is getting better. On evaluation today, noted droop on the right side of the face. Patient reports that this is chronic for her. No fever or chills reported overnight. No chest pain or palpitations. - Exam Vitals: Temp Pulse Resp BP Pulse Ox 98.5 F 82 18 109/52 93 04/25/19 11:09 04/25/19 11:09 04/25/19 11:12 04/25/19 11:04/25/19 11:12 Exam: General: Patient is alert, no acute distress, oriented x 3 Respiratory: Bilateral wheezing and rhonchi Cardiovascular: Regular rate and rhythm. s1 and s2 normal No clicks, rubs, gallops, or murmurs. No pedal edema Abdomen: Abdomen is soft, nontender. Bowel sounds are present Musculoskeletal: Spontaneously moving all extremities Skin: warm, dry, intact. Neuro: Alert oriented x 3 normal cranial nerves, no focal deficits - Assessment and Plan (1) Acute hypercapnic respiratory failure Current Visit: Yes Status: Acute (2) COPD exacerbation Current Visit: Yes Status: Acute (3) Weakness on right side of face Current Visit: Yes Status: Acute (4) Diabetes mellitus Current Visit: Yes Status: Chronic DVT Prophylaxis: Acute hypoxic and hypercapnic respiratory failure: Continue O2 supplementation. Due to COPD exacerbation. We will do BiPAP qualification study tonight. Acute COPD exacerbation: Continue bronchodilators. Continue O2 supplementation and systemic steroids. Coronary artery disease: Continue aspirin, statin. Right-sided facial weakness: On exam, patient has mild troponin right side. This appears to be chronic according to the patient. Continue aspirin, statin. Diabetes mellitus type 2: Monitor blood sugars. Continue sliding scale insulin. Moderate risk for complications - Time Spent with Patient Total time spent is greater than 50% in coordination of care (as documented) at patient's floor/unit and/or counseling patient: Internal Medicine: Result - Labs CBC & Chem 7: 04/25/19 06:00 04/25/19 06:00 Labs: Short CBC 04/25/19 Range/Units 06:00 WBC 11.7 H (4.3-11.1) K/mcL Hgb 10.6 L D (11.5-15.4) g/dL Hct 33.4 L (35.3-44.9) % Plt Count 154 (140-400) K/mcL Neutrophils # 10.0 H (1.6-8.9) K/mcL BMP 04/25/19 06:00 Sodium 134 L Potassium 4.6 Chloride 91 L Carbon Dioxide 35 H BUN 23 Creatinine 1.21 H Glucose 145 H Calcium 9.6 - ABG Interpretation ABG results: PT/INR, D-dimer PT 11.1 Seconds (9.4-12.1) 04/24/19 00:50 - Impressions Impressions Echocardiogram 04/25/19 00:00 Impressions: LVEF 60-65%. Normal LV chamber size, wall thickness and function. Mild left ventricular diastolic dysfunction. Normal right ventricular structure and function. Mild pulmonary hypertension. No significant valvular dysfunction. Left Ventricular Wall Motion: Rest Echo Findings All wall segments showed normal motion. Findings: Study Quality * Technically sub-optimal due to poor echocardiographic windows. ECG Findings * Normal sinus rhythm. Left Ventricle * LVEF 60-65%. * Normal LV chamber size, wall thickness and function. * Mild left ventricular diastolic dysfunction. Right Ventricle * Normal right ventricular structure and function. Left Atrium * Normal left atrial size. Right Atrium * Normal right atrial size. Interatrial Septum * Interatrial septum not well evaluated. Aortic Valve * Normal aortic valve structure. * Mild aortic regurgitation. * No aortic stenosis. Mitral Valve * Normal mitral valve structure and function. * No mitral regurgitation. * No mitral stenosis. Tricuspid Valve * Normal tricuspid valve structure and function. * Trace tricuspid regurgitation. * Mild pulmonary hypertension. Pulmonic Valve * Pulmonic valve is not well visualized. * Trace pulmonic regurgitation. Aorta * Normally sized aortic root. Pericardium * Trivial pericardial effusion. IVC * Normal IVC dimensions and inspiratory collapse. Pulmonary Artery * Normal visualized portions of the main pulmonary artery. Consult Discharge Plan - Plan Referrals: Soo Tineo, DIGITAL PHOTO PRINTER [Advanced Practice Nurse] - (Left Message for the office to call back) (4) Diabetes mellitus Qualifiers: Diabetes mellitus type: type 2 Diabetes mellitus jail insulin use: without jail use Diabetes mellitus complication status: without complication Qualified Code(s): E11.9 - Type 2 diabetes mellitus without complications
[2019-04-25] MEDS: *HR* Heparin 5,000 UNIT/ML VIAL SQ SCH (16:45)
[2019-04-26 02:07] LABS: Basophils % 0.1 %; Hematocrit 31.2 % (35.3-44.9); Hemoglobin 9.8 g/dL (11.5-15.4); Immature Granulocytes % 0.5 % (0-4); Lymphocytes # 0.7 K/mcL (0.6-4.6); Lymphocytes % 7.2 %; Mean Corpuscular HGB Conc 31.4 g/dL (31.6-35.5); Mean Corpuscular Hemoglobin 30.6 pg (28.0-33.3); Mean Corpuscular Volume 97.5 fL (83.0-100.0); Mean Platelet Volume 10.3 fL (9.4-12.4); Monocytes # 0.5 K/mcL (0.0-1.3); Monocytes % 5.1 %; Neutrophils # 8.8 K/mcL (1.6-8.9); Platelet Count 160 K/mcL (140-400); Red Cell Distribution Width 13.6 % (11.5-14.5); Segmented Neutrophils % 87.1 %; White Blood Count 10.1 K/mcL (4.3-11.1)
[2019-04-26 02:26] LABS: Calcium 9.4 mg/dL (8.6-10.3); Potassium 4.1 mEq/L (3.5-5.1)
[2019-04-26] MEDS: Ipratropium/Albuterol Neb 3 ML IH SCH ×3 (03:29→11:06)
[2019-04-26] MEDS: *HR* Heparin 5,000 UNIT/ML VIAL SQ SCH (04:32)
[2019-04-26 05:49] LABS: ABG Base Excess 15 mEq/L (-2 to 3); ABG HCO3 41 mEq/L (21-27); ABG Oxygen Saturation 89 % (95-98); ABG PCO2 58 mmHg (35-45); ABG PH 7.46 pH Units (7.32-7.45); ABG PO2 56 mmHg (85-104); ABG TCO2 43 mEq/L (20-26)
[2019-04-26] MEDS: Insulin LISPRO 300 UNITS/3 ML VIAL SQ SCH ×2 (08:07→11:57)
[2019-04-26] MEDS: MethylPREDNISolone 40 MG/ML VIAL IVP SCH (08:09)
[2019-04-26] MEDS: Aspirin Enteric Coated 81 MG Tablet PO SCH (08:09)
[2019-04-26] MEDS: Azithromycin 500 MG in D5% in Water 250 ML IVPB SCH (11:21)
[2019-04-26 11:52] VITALS: BP 107/59
--- NOTE | 2019-04-26 11:59 | Discharge Summary ---
- NOTES TO OUTPATIENT PROVIDER Notes to Outpatient Provider: Patient with a history of diabetes, COPD, chronic hypoxic respiratory failure, coronary artery disease was hospitalized here with symptoms of worsening shortness of breath and increased dizziness. There was also concern for possible TIA as patient was noted to have some right-sided facial droop. However according to the patient this is chronic for her. She was diagnosed with acute hypercapnic respiratory failure related to COPD exacerbation and was treated for this with O2 supplementation, steroids and bronchodilators along with antibiotics. Her troponins were also trended and the pain did and the peak to 0.11 and have been trending down since then. This is most likely due to demand ischemia. Patient's symptoms have improved with aggressive treatment of her COPD exacerbation. She was qualified for BiPAP overnight and according to the testing would benefit from home BiPAP use. Patient was evaluated by physical therapy and she will be discharged to skilled rehabilitation per their recommendations. She is clinically stable to be discharged today. She will be sent with a prescription for home BiPAP and also will complete a steroid taper and course of azithromycin to complete treatment for COPD. Her pro calcitonin level was 0.03 suggesting no acute infection. Date of Encounter: 04/26/19 Time of Encounter: 11:55 - Discharge Diagnosis (1) Acute hypercapnic respiratory failure Priority: Primary Status: Acute (2) COPD exacerbation Priority: Secondary Status: Acute (3) Weakness on right side of face Priority: Secondary Status: Chronic (4) Diabetes mellitus Priority: Secondary Status: Chronic Qualifiers: Diabetes mellitus type: type 2 Diabetes mellitus penitentiary insulin use: without superintendent marine oil terminal use Diabetes mellitus complication status: without complication Qualified Code(s): E11.9 - Type 2 diabetes mellitus without complications (5) Elevated troponin I level Priority: Secondary Status: Acute (6) Anemia Priority: Secondary Status: Acute Qualifiers: Anemia type: iron deficiency Iron deficiency anemia type: unspecified iron deficiency Qualified Code(s): D50.9 - Iron deficiency anemia, unspecified (7) CKD (chronic kidney disease) stage 3, GFR 30-59 ml/min Priority: Secondary Status: Chronic Hospital course: Ms. Barraza is a 64 year old female Patient with a history of diabetes, COPD, chronic hypoxic respiratory failure, coronary artery disease was hospitalized here with symptoms of worsening shortness of breath and increased dizziness. There was also concern for possible TIA as patient was noted to have some right- sided facial droop. However according to the patient this is chronic for her. She was diagnosed with acute hypercapnic respiratory failure related to COPD exacerbation and was treated for this with O2 supplementation, steroids and bronchodilators along with antibiotics. Her troponins were also trended and the pain did and the peak to 0.11 and have been trending down since then. This is most likely due to demand ischemia. Patient's symptoms have improved with aggressive treatment of her COPD exacerbation. She was qualified for BiPAP overnight and according to the testing would benefit from home BiPAP use. Patient was evaluated by physical therapy and she will be discharged to skilled rehabilitation per their recommendations. She is clinically stable to be discharged today. She will be sent with a prescription for home BiPAP and also will complete a steroid taper and course of azithromycin to complete treatment for COPD. Her pro calcitonin level was 0.03 suggesting no acute infection. Discharge discussed with: patient, nurse - Time Spent with Patient Total time spent providing and/or coordinating discharge services: Time spent: Greater than 30 minutes (35 min) - Discharge Medications Prescriptions: New predniSONE [PredniSONE] 10 mg PO DAILY #12 tablet Azithromycin [Zithromax] 500 mg PO Q24H #6 tablet Continued Cyanocobalamin (B-12) [Vitamin B12] 3,000 mcg PO DAILY Simvastatin [Zocor] 10 mg PO HS Linagliptin [Tradjenta] 5 mg PO DAILY Nicotine Patch [Nicoderm] 21 mg TD DAILY patch.td24 Acetaminophen [Tylenol] 650 mg PO Q4-6H PRN PRN Reason: PAIN, FEVER Aripiprazole [Abilify] 20 mg PO DAILY Aspirin Enteric Coated [Aspirin EC] 81 mg PO DAILY Ergocalciferol (VITAMIN D2) [Vitamin D2] 50,000 unit PO QWEEK Escitalopram [Lexapro] 10 mg PO DAILY Lisinopril [Zestril] 20 mg PO DAILY Metoprolol Succinate [Toprol Xl] 25 mg PO DAILY Potassium Chloride [K-Tab ER] 10 meq PO DAILY diazePAM [Valium] 5 mg PO BID PRN 7 Days #14 tablet PRN Reason: Anxiety Albuterol Sulfate [Proair Hfa] 2 puff IH Q6H PRN PRN Reason: Shortness Of Breath Tiotropium [Spiriva] 18 mcg IH DAILY Budesonide/Formoterol 160/4.5 [Symbicort 160/4.5] 2 puff IH BIDR #1 inhaler Pioglitazone HCl [Actos] 30 mg PO DAILY Ascorbic Acid [C-500] 500 mg PO DAILY #30 tablet Home Medications: Albuterol Sulfate [Proair Hfa] 2 puff IH Q6H PRN 02/08/17 [History] Tiotropium [Spiriva] 18 mcg IH DAILY 02/08/17 [History] Budesonide/Formoterol 160/4.5 [Symbicort 160/4.5] 2 puff IH BIDR #1 inhaler 02/11/17 [Rx] Cyanocobalamin (B-12) [Vitamin B12] 3,000 mcg PO DAILY 12/14/17 [History] Linagliptin [Tradjenta] 5 mg PO DAILY 12/14/17 [History] Simvastatin [Zocor] 10 mg PO HS 12/14/17 [History] Pioglitazone HCl [Actos] 30 mg PO DAILY 12/30/17 [History] Nicotine Patch [Nicoderm] 21 mg TD DAILY patch.td24 01/08/18 [Rx] Ascorbic Acid [C-500] 500 mg PO DAILY #30 tablet 12/05/18 [Rx] Acetaminophen [Tylenol] 650 mg PO Q4-6H PRN 04/25/19 [History] Aripiprazole [Abilify] 20 mg PO DAILY 04/25/19 [History] Aspirin Enteric Coated [Aspirin EC] 81 mg PO DAILY 04/25/19 [History] Ergocalciferol (VITAMIN D2) [Vitamin D2] 50,000 unit PO QWEEK 04/25/19 [History] Escitalopram [Lexapro] 10 mg PO DAILY 04/25/19 [History] Lisinopril [Zestril] 20 mg PO DAILY 04/25/19 [History] Metoprolol Succinate [Toprol Xl] 25 mg PO DAILY 04/25/19 [History] Potassium Chloride [K-Tab ER] 10 meq PO DAILY 04/25/19 [History] Azithromycin [Zithromax] 500 mg PO Q24H #6 tablet 04/26/19 [Rx] diazePAM [Valium] 5 mg PO BID PRN 7 Days #14 tablet 04/26/19 [Rx] predniSONE [PredniSONE] 10 mg PO DAILY #12 tablet 04/26/19 [Rx] Allergies/Adverse Reactions: Allergy/AdvReac Type Severity Reaction Status Date / Time No Known Allergies Allergy Verified 04/25/19 18:04 Date of admission: 04/24/19 04:36 Primary care physician: PCP NONE Consults: 04/24/19 02:53 Consult to Occupational Therapy [CONS] Routine Comment: Evaluate, develop and implement POC Reason for Consult: facial droop, stroke eval Does patient have active BEDREST order?: No Is patient medically & hemodynamically stable?: Yes Consult to Physical Therapy [CONS] Routine Comment: Evaluate, develop and implement POC Reason for Consult: facial droop, stroke eval Does patient have active BEDREST order?: No Is patient medically & hemodynamically stable?: Yes 04/24/19 09:21 Consult to Nurse Navigator [CONS] Routine Comment: COPD Discharging clinician: Niesha Cid Anticipated date of discharge: 04/26/19 - Constitutional Vitals: Temp Pulse Resp BP Pulse Ox 98.2 F 98 16 107/59 93 04/26/19 11:50 04/26/19 11:50 04/26/19 11:50 04/26/19 11:50 04/26/19 11:50 General appearance: Present: A&O X 3, pleasant, no acute distress, answers questions appropriately Exam: General: Patient is alert, no acute distress, oriented x 3 Respiratory: Bilateral wheezing and prolonged expiratory phase Cardiovascular: Regular rate and rhythm. s1 and s2 normal No clicks, rubs, gallops, or murmurs. No pedal edema Abdomen: Abdomen is soft, nontender. Bowel sounds are present Musculoskeletal: Spontaneously moving all extremities Skin: warm, dry, intact. Neuro: Alert oriented x 3 normal cranial nerves, no focal deficits - Patient Status Disposition: Home, Self-Care Condition: Fair Functional capacity at discharge: uses cane/walker Overall status at discharge: patient is progressing back to baseline - Discharge Instructions Instructions: Chronic Obstructive Pulmonary Disease (DC), Acute Respiratory Distress Syndrome (DC), Chronic Hypertension (DC), Diabetes Mellitus Type 2 in Adults (DC) Follow Up With: Soo Tineo, FINANCIAL SERVICES AUDITOR [Advanced Practice Nurse] - (Left Message for the office to call back) - Diet and Activity Activity: increase activity as tolerated, wear oxygen at all times Diet: diabetic diet, low fat, low cholesterol, low salt diet
--- NOTE | 2019-04-26 12:14 | Physician Discharge Referral ---
ExtendedCare Referral Info Provider in Charge after Transfer: PCP Institutional Level of Care: Skilled - Diagnosis (1) Acute hypercapnic respiratory failure Priority: Primary Status: Acute (2) COPD exacerbation Priority: Secondary Status: Acute (3) Weakness on right side of face Priority: Secondary Status: Chronic (4) Diabetes mellitus Priority: Secondary Status: Chronic (5) Elevated troponin I level Priority: Secondary Status: Acute (6) Anemia Priority: Secondary Status: Acute (7) CKD (chronic kidney disease) stage 3, GFR 30-59 ml/min Priority: Secondary Status: Chronic (8) Chronic respiratory failure with hypoxia and hypercapnia Priority: Secondary Status: Chronic Prognosis: Fair Aware of Diagnosis: Patient, Family Aware of Prognosis: Patient, Family - Transfer Medications Prescriptions: predniSONE [PredniSONE] 10 mg PO DAILY #12 tablet diazePAM [Valium] 5 mg PO BID PRN 7 Days #14 tablet PRN Reason: Anxiety Azithromycin [Zithromax] 500 mg PO Q24H #6 tablet Home Medications: Albuterol Sulfate [Proair Hfa] 2 puff IH Q6H PRN 02/08/17 [History] Tiotropium [Spiriva] 18 mcg IH DAILY 02/08/17 [History] Budesonide/Formoterol 160/4.5 [Symbicort 160/4.5] 2 puff IH BIDR #1 inhaler 02/11/17 [Rx] Cyanocobalamin (B-12) [Vitamin B12] 3,000 mcg PO DAILY 12/14/17 [History] Linagliptin [Tradjenta] 5 mg PO DAILY 12/14/17 [History] Simvastatin [Zocor] 10 mg PO HS 12/14/17 [History] Pioglitazone HCl [Actos] 30 mg PO DAILY 12/30/17 [History] Nicotine Patch [Nicoderm] 21 mg TD DAILY patch.td24 01/08/18 [Rx] Ascorbic Acid [C-500] 500 mg PO DAILY #30 tablet 12/05/18 [Rx] Acetaminophen [Tylenol] 650 mg PO Q4-6H PRN 04/25/19 [History] Aripiprazole [Abilify] 20 mg PO DAILY 04/25/19 [History] Aspirin Enteric Coated [Aspirin EC] 81 mg PO DAILY 04/25/19 [History] Ergocalciferol (VITAMIN D2) [Vitamin D2] 50,000 unit PO QWEEK 04/25/19 [History] Escitalopram [Lexapro] 10 mg PO DAILY 04/25/19 [History] Lisinopril [Zestril] 20 mg PO DAILY 04/25/19 [History] Metoprolol Succinate [Toprol Xl] 25 mg PO DAILY 04/25/19 [History] Potassium Chloride [K-Tab ER] 10 meq PO DAILY 04/25/19 [History] Azithromycin [Zithromax] 500 mg PO Q24H #6 tablet 04/26/19 [Rx] diazePAM [Valium] 5 mg PO BID PRN 7 Days #14 tablet 04/26/19 [Rx] predniSONE [PredniSONE] 10 mg PO DAILY #12 tablet 04/26/19 [Rx] Allergies/Adverse Reactions: Allergy/AdvReac Type Severity Reaction Status Date / Time No Known Allergies Allergy Verified 04/25/19 18:04 - Respiratory Orders Oxygen / L per min (3), Other (BiPAP at night and while lying down and as needed with settings of 14/7 cm water pressure, rate of 8/m with 60% O2 supplementation) Smoking Cessation: Smoking cessation has been advised. For more information, call the [place] Tobacco Quit Line at 9-101-GRIF-NOW. - Advance Directives Code Status: Full Code - Mobility Orders Ambulate (per PT) - Rehabiliation Orders Rehab Potential: Fair Rehab Orders: Evaluation for Physical Therapy, Evaluation for Occupational Therapy - Diet Orders Cardiac CERTIFICATION: I certify that the transfer of the above named patient to an Extended Care Facility is necessary for the continuing treatment of the diagnosis listed. The above information is true and accurate reflection of patient's current condition. Confidential - Redisclosure prohibited without a patient's written consent.
== END 2019-04-26 14:00 | DRG 140 ==
LOC: 2NNU → SUATTDRO 04-24 04:36
PROVIDERS: ADMIT Pediatrics; ATTEND Internal Medicine

== ENCOUNTER 2019-11-30 13:04 | Inpatient (IN) ==
[2019-11-30] MEDS ORDERED: Naloxone 0.4 MG/ML INJ IVP PRN (15:27)
[2019-11-30] MEDS ORDERED: Ondansetron 4 MG/2 ML VIAL IVP PRN (15:54)
[2019-11-30] MEDS ORDERED: *HR* Metoprolol 5 MG/5 ML VIAL IVP PRN (15:54)
[2019-11-30] MEDS ORDERED: Piperacillin/Tazobactam 3.375 GM in 0.9 % Sodium Chloride Mini Bag 100 ML IVP ONE (16:38)
[2019-11-30] MEDS: Ipratropium Neb 0.5 MG NEBULIZER IH SCH ×2 (16:52→22:00)
[2019-11-30] MEDS: Levalbuterol Neb 1.25 MG/3 ML IH SCH ×2 (16:52→22:00)
[2019-11-30] MEDS: MethylPREDNISolone 40 MG/ML VIAL IVP SCH (17:03)
[2019-11-30] MEDS: *HR* Heparin 5,000 UNIT/ML VIAL SQ SCH (17:04)
[2019-11-30] MEDS: Insulin LISPRO 300 UNITS/3 ML VIAL SQ SCH ×2 (17:08→21:40)
[2019-11-30 17:20] LABS: Hematocrit 27.9 % (35.3-44.9); Hemoglobin 8.7 g/dL (11.5-15.4); Mean Corpuscular HGB Conc 31.2 g/dL (31.6-35.5); Mean Corpuscular Hemoglobin 30.4 pg (28.0-33.3); Mean Corpuscular Volume 97.6 fL (83.0-100.0); Mean Platelet Volume 9.5 fL (9.4-12.4); Monocytes # 1.8 K/mcL (0.0-1.3); Nucleated Red Blood Cells 0.6 /100 WBC (0); Platelet Count 240 K/mcL (140-400); Red Blood Count 2.86 M/mcL (3.82-4.97); Red Cell Distribution Width 14.8 % (11.5-14.5)
[2019-11-30 17:24] LABS: Prothrombin Time 11.3 Seconds (9.4-12.1)
[2019-11-30 17:26] LABS: White Blood Count 30.5 K/mcL (4.3-11.1)
[2019-11-30 17:40] LABS: Lymphocytes # 2.4 K/mcL (0.6-4.6)
[2019-11-30 17:42] LABS: Macrocytosis Present (Not Present); Platelet Estimate Normal (Normal)
[2019-11-30 17:43] LABS: Hypochromasia Present (Not Present)
[2019-11-30 18:58] LABS: % Iron Saturation 10 % (15-50); Alanine Aminotransferase 11 Units/L (7-52); Albumin 4.3 g/dL (3.5-5.7); Albumin/Globulin Ratio 1.7 (1.1-2.2); Alkaline Phosphatase 47 Units/L (34-104); Aspartate Amino Transferase 20 Units/L (13-39); BUN/Creatinine Ratio 11 (6-26); Bilirubin,Direct 0.1 mg/dL (0.0-0.2); Bilirubin,Indirect 0.3 mg/dL (0.0-1.0); Bilirubin,Total 0.4 mg/dL (0.3-1.0); Blood Urea Nitrogen 9 mg/dL (8-23); C-Reactive Protein < 5 mg/L (Less than 10); Carbon Dioxide 28 mEq/L (23-29); Chloride 105 mEq/L (98-107); Globulin 2.5 g/dL (2.4-3.5); Glucose 86 mg/dL (70-105); Iron 31 mcg/dL (50-170); Magnesium 1.9 mg/dL (1.6-2.6); Osmolality,Calculated 284 (280-300); Sodium 138 mEq/L (136-145); Total Protein 6.8 g/dL (6.4-8.9); Transferrin 229 mg/dL (203-362); eGFR For African Americans > 60 (> 60); eGFR For Non-African Americans > 60 (> 60)
[2019-11-30 19:12] LABS: Adenovirus Not Detected (Not Detect); Bordetella Pertussis Not Detected (Not Detect); Chlamydophila pneumoniae Not Detected (Not Detect); Coronavirus 229E Not Detected (Not Detect); Coronavirus HKU1 Not Detected (Not Detect); Coronavirus NL63 Not Detected (Not Detect); Coronavirus OC43 Not Detected (Not Detect); Human Metapneumovirus Not Detected (Not Detect); Human Rhinovirus/Enterovirus Not Detected (Not Detect); Influenza A Subtype 2009 H1 Not Detected (Not Detect); Influenza B Not Detected (Not Detect); Mycoplasma pneumoniae Not Detected (Not Detect); Parainfluenza Virus 1 Not Detected (Not Detect); Parainfluenza Virus 2 Not Detected (Not Detect); Parainfluenza Virus 3 Not Detected (Not Detect); Parainfluenza Virus 4 Not Detected (Not Detect); Respiratory Syncytial Virus Not Detected (Not Detect)
[2019-11-30] MEDS: Acetaminophen 325 MG TABLET PO PRN (20:12)
[2019-12-01] MEDS ORDERED: Acetaminophen 325 MG TABLET PO SCH
[2019-12-01] MEDS: MethylPREDNISolone 40 MG/ML VIAL IVP SCH ×3 (00:06→16:59)
[2019-12-01] MEDS: Piperacillin/Tazobactam 3.375 GM in 0.9 % Sodium Chloride Mini Bag 100 ML IVPB SCH ×3 (00:07→16:58)
[2019-12-01] MEDS: Levalbuterol Neb 1.25 MG/3 ML IH SCH ×4 (03:08→21:49)
[2019-12-01] MEDS: Ipratropium Neb 0.5 MG NEBULIZER IH SCH ×4 (03:08→21:49)
[2019-12-01 04:31] LABS: Hematocrit 26.6 % (35.3-44.9); Hemoglobin 8.4 g/dL (11.5-15.4); Mean Corpuscular HGB Conc 31.6 g/dL (31.6-35.5); Mean Corpuscular Hemoglobin 30.9 pg (28.0-33.3); Mean Corpuscular Volume 97.8 fL (83.0-100.0); Nucleated Red Blood Cells 0.3 /100 WBC (0); Platelet Count 197 K/mcL (140-400); Red Blood Count 2.72 M/mcL (3.82-4.97); Red Cell Distribution Width 14.9 % (11.5-14.5); White Blood Count 21.1 K/mcL (4.3-11.1)
[2019-12-01 04:39] LABS: Monocytes # 0.4 K/mcL (0.0-1.3)
[2019-12-01 04:57] LABS: BUN/Creatinine Ratio 33 (6-26); Blood Urea Nitrogen 31 mg/dL (8-23); Calcium 8.2 mg/dL (8.6-10.3); Carbon Dioxide 33 mEq/L (23-29); Chloride 96 mEq/L (98-107); Glucose 235 mg/dL (70-105); Magnesium 1.4 mg/dL (1.6-2.6); Osmolality,Calculated 296 (280-300); Phosphorous 2.2 mg/dL (2.7-4.5); Potassium 3.5 mEq/L (3.5-5.1); Sodium 136 mEq/L (136-145); eGFR For African Americans > 60 (> 60); eGFR For Non-African Americans 59 (> 60)
[2019-12-01 05:09] LABS: Lymphocytes # 2.5 K/mcL (0.6-4.6); Neutrophils # 18.2 K/mcL (1.6-8.9)
[2019-12-01 05:10] LABS: Platelet Estimate Normal (Normal); Reactive Lymphocytes Present (Not Present)
[2019-12-01] MEDS: *HR* Heparin 5,000 UNIT/ML VIAL SQ SCH ×2 (06:03→16:58)
[2019-12-01] MEDS: Insulin LISPRO 300 UNITS/3 ML VIAL SQ SCH ×4 (08:13→22:15)
[2019-12-01] MEDS ORDERED: Aminoglycoside Consult 1 EACH MC ONE (08:23)
[2019-12-01] MEDS: Acetaminophen 325 MG TABLET PO PRN (11:55)
[2019-12-01] MEDS: Magnesium Oxide 400 MG TABLET PO SCH (11:55)
[2019-12-02] MEDS: MethylPREDNISolone 40 MG/ML VIAL IVP SCH ×2 (00:15→08:37)
[2019-12-02] MEDS: Piperacillin/Tazobactam 3.375 GM in 0.9 % Sodium Chloride Mini Bag 100 ML IVPB SCH ×2 (00:17→08:37)
[2019-12-02] MEDS: Levalbuterol Neb 1.25 MG/3 ML IH SCH ×4 (03:51→21:57)
[2019-12-02] MEDS: Ipratropium Neb 0.5 MG NEBULIZER IH SCH ×4 (03:51→21:57)
[2019-12-02 05:31] LABS: Hematocrit 25.7 % (35.3-44.9); Hemoglobin 8.4 g/dL (11.5-15.4); Mean Corpuscular HGB Conc 32.7 g/dL (31.6-35.5); Mean Corpuscular Hemoglobin 30.3 pg (28.0-33.3); Mean Corpuscular Volume 92.8 fL (83.0-100.0); Mean Platelet Volume 9.2 fL (9.4-12.4); Nucleated Red Blood Cells 0.5 /100 WBC (0); Platelet Count 207 K/mcL (140-400); Red Blood Count 2.77 M/mcL (3.82-4.97); Red Cell Distribution Width 14.7 % (11.5-14.5)
[2019-12-02 05:51] LABS: BUN/Creatinine Ratio 31 (6-26); Blood Urea Nitrogen 28 mg/dL (8-23); Calcium 8.4 mg/dL (8.6-10.3); Carbon Dioxide 33 mEq/L (23-29); Chloride 97 mEq/L (98-107); Glucose 213 mg/dL (70-105); Osmolality,Calculated 300 (280-300); Potassium 3.7 mEq/L (3.5-5.1); Sodium 139 mEq/L (136-145); eGFR For African Americans > 60 (> 60); eGFR For Non-African Americans > 60 (> 60)
[2019-12-02] MEDS: *HR* Heparin 5,000 UNIT/ML VIAL SQ SCH ×2 (05:51→16:41)
[2019-12-02 06:26] LABS: Lymphocytes # 1.7 K/mcL (0.6-4.6)
[2019-12-02 06:28] LABS: Basophilic Stippling 1+ (Not Present); Platelet Estimate Normal (Normal)
[2019-12-02 06:30] LABS: Hypochromasia Present (Not Present)
[2019-12-02] MEDS: Magnesium Oxide 400 MG TABLET PO SCH (08:37)
[2019-12-02] MEDS: Insulin LISPRO 300 UNITS/3 ML VIAL SQ SCH ×4 (08:51→20:19)
[2019-12-02] MEDS: predniSONE 20 MG TABLET PO SCH (13:07)
[2019-12-02] MEDS: Nicotine 14 MG PATCH.TD24 TD SCH (20:18)
[2019-12-03] MEDS: Levalbuterol Neb 1.25 MG/3 ML IH SCH ×4 (04:07→22:16)
[2019-12-03] MEDS: Ipratropium Neb 0.5 MG NEBULIZER IH SCH ×4 (04:07→22:16)
[2019-12-03 05:08] LABS: Hemoglobin 8.5 g/dL (11.5-15.4); Mean Corpuscular HGB Conc 31.5 g/dL (31.6-35.5); Mean Corpuscular Hemoglobin 29.9 pg (28.0-33.3); Mean Corpuscular Volume 95.1 fL (83.0-100.0); Mean Platelet Volume 9.2 fL (9.4-12.4); Nucleated Red Blood Cells 0.5 /100 WBC (0); Platelet Count 219 K/mcL (140-400); Red Blood Count 2.84 M/mcL (3.82-4.97); White Blood Count 16.5 K/mcL (4.3-11.1)
[2019-12-03 05:28] LABS: BUN/Creatinine Ratio 41 (6-26); Blood Urea Nitrogen 32 mg/dL (8-23); Carbon Dioxide 35 mEq/L (23-29); Chloride 98 mEq/L (98-107); Glucose 149 mg/dL (70-105); Osmolality,Calculated 300 (280-300); Potassium 3.8 mEq/L (3.5-5.1); Sodium 140 mEq/L (136-145); eGFR For African Americans > 60 (> 60); eGFR For Non-African Americans > 60 (> 60)
[2019-12-03 05:38] LABS: Anisocytosis 1+ (Not Present); Macrocytosis Present (Not Present); Monocytes # 0.3 K/mcL (0.0-1.3); Neutrophils # 13.2 K/mcL (1.6-8.9); Platelet Estimate Normal (Normal); Polychromasia 1+ (Not Present)
[2019-12-03] MEDS: *HR* Heparin 5,000 UNIT/ML VIAL SQ SCH ×2 (06:31→17:24)
[2019-12-03] MEDS: Insulin LISPRO 300 UNITS/3 ML VIAL SQ SCH ×4 (09:36→21:08)
[2019-12-03] MEDS: Magnesium Oxide 400 MG TABLET PO SCH (09:37)
[2019-12-03] MEDS: predniSONE 20 MG TABLET PO SCH (09:37)
[2019-12-03] MEDS: Nicotine 14 MG PATCH.TD24 TD SCH (09:37)
[2019-12-03] MEDS ORDERED: Ipratropium/Albuterol Neb 3 ML IH PRN (10:27)
[2019-12-03] MEDS ORDERED: Aspirin Enteric Coated 81 MG Tablet PO SCH (10:30)
[2019-12-03] MEDS: Metoprolol XL (24 HR) Succ 25 MG TAB.ER.24H PO SCH (16:47)
[2019-12-03] MEDS ORDERED: Mirtazapine 15 MG TABLET PO SCH (21:00)
[2019-12-03] MEDS: Lactobacillus 1 EACH CAP.SPRINK PO SCH (21:08)
[2019-12-03] MEDS: Budesonide/Formoterol 160/4.5 1 PUFF INH IH SCH (22:16)
[2019-12-04 00:49] LABS: Hematocrit 25.9 % (35.3-44.9); Hemoglobin 8.2 g/dL (11.5-15.4); Mean Corpuscular HGB Conc 31.7 g/dL (31.6-35.5); Mean Corpuscular Hemoglobin 30.1 pg (28.0-33.3); Mean Corpuscular Volume 95.2 fL (83.0-100.0); Mean Platelet Volume 9.5 fL (9.4-12.4); Monocytes # 0.7 K/mcL (0.0-1.3); Nucleated Red Blood Cells 0.3 /100 WBC (0); Platelet Count 213 K/mcL (140-400); Red Blood Count 2.72 M/mcL (3.82-4.97); Red Cell Distribution Width 16.1 % (11.5-14.5)
[2019-12-04 01:04] LABS: BUN/Creatinine Ratio 38 (6-26); Blood Urea Nitrogen 32 mg/dL (8-23); Calcium 8.9 mg/dL (8.6-10.3); Carbon Dioxide 35 mEq/L (23-29); Chloride 98 mEq/L (98-107); Glucose 119 mg/dL (70-105); Osmolality,Calculated 296 (280-300); Potassium 4.1 mEq/L (3.5-5.1); Sodium 139 mEq/L (136-145); eGFR For African Americans > 60 (> 60); eGFR For Non-African Americans > 60 (> 60)
[2019-12-04 01:39] LABS: Hypochromasia Present (Not Present); Lymphocytes # 1.4 K/mcL (0.6-4.6); Neutrophils # 15.5 K/mcL (1.6-8.9); Platelet Estimate Normal (Normal)
[2019-12-04] MEDS: Levalbuterol Neb 1.25 MG/3 ML IH SCH ×3 (03:48→16:19)
[2019-12-04] MEDS: Ipratropium Neb 0.5 MG NEBULIZER IH SCH ×3 (03:48→16:19)
[2019-12-04] MEDS: *HR* Heparin 5,000 UNIT/ML VIAL SQ SCH (06:17)
[2019-12-04 08:05] VITALS: BP 128/65
[2019-12-04] MEDS ORDERED: Furosemide 20 MG TABLET PO SCH (09:00)
[2019-12-04] MEDS ORDERED: Metoprolol XL (24 HR) Succ 25 MG TAB.ER.24H PO SCH (09:00)
[2019-12-04] MEDS ORDERED: ARIPiprazole 10 MG TABLET PO SCH (09:00)
[2019-12-04] MEDS ORDERED: Ascorbic Acid 500 MG TABLET PO SCH (09:00)
[2019-12-04] MEDS ORDERED: *HR* Pioglitazone 30 MG TABLET PO SCH (09:00)
[2019-12-04] MEDS ORDERED: Tiotropium 18 MCG inhalation IH SCH (10:00)
[2019-12-04] MEDS: Metoprolol XL (24 HR) Succ 25 MG TAB.ER.24H PO SCH (10:18)
[2019-12-04] MEDS: Lactobacillus 1 EACH CAP.SPRINK PO SCH (10:18)
[2019-12-04] MEDS: Magnesium Oxide 400 MG TABLET PO SCH (10:18)
[2019-12-04] MEDS: predniSONE 20 MG TABLET PO SCH (10:18)
[2019-12-04] MEDS: Insulin LISPRO 300 UNITS/3 ML VIAL SQ SCH ×2 (10:19→13:09)
[2019-12-04] MEDS: Nicotine 14 MG PATCH.TD24 TD SCH (10:19)
[2019-12-04] MEDS: Budesonide/Formoterol 160/4.5 1 PUFF INH IH SCH (10:42)
[2019-12-04 13:57] LABS: Mycoplasma pneumoniae IgG 0.13 U/L (<=0.09)
[2019-12-04] MEDS: Acetaminophen 325 MG TABLET PO PRN (18:41)
[2019-12-07] MEDS ORDERED: Ergocalciferol (VIT D2) 50,000 UNIT (1.25MG) CAP PO SCH (09:00)
== END 2019-12-04 20:01 | DRG 139 ==
LOC: SUATTDRO 14:39 → 2NNU 14:39 → 2NENU 12-01 10:08
PROVIDERS: ADMIT Pharmacist; ATTEND Internal Medicine

== ENCOUNTER 2020-04-29 17:10 | Inpatient (IN) ==
[2020-04-29] MEDS ORDERED: *HR* Promethazine 25 MG/ML VIAL IVP PRN (21:34)
[2020-04-29] MEDS ORDERED: Naloxone 0.4 MG/ML INJ IVP PRN (21:34)
[2020-04-29] MEDS ORDERED: Dextrose Gel 15 GM/37.5 ML TUBE PO PRN ×2 (22:28)
[2020-04-29] MEDS ORDERED: D5% in Water 1,000 ML IVC PRN (22:28)
[2020-04-29] MEDS ORDERED: *HR* Dextrose 50 % in Water (Vial) 50 ML VIAL IVP PRN (22:28)
[2020-04-29 23:31] LABS: Estimated Average Glucose 123 mg/dl; Hemoglobin A1C 5.9 %
[2020-04-30] MEDS: Insulin LISPRO 300 UNITS/3 ML VIAL SQ SCH ×4 (01:21→17:34)
[2020-04-30] MEDS: Aspirin Enteric Coated 81 MG Tablet PO SCH (01:21)
[2020-04-30] MEDS: Budesonide/Formoterol 160/4.5 1 PUFF INH IH SCH ×3 (03:46→21:47)
[2020-04-30] MEDS: Tiotropium 18 MCG inhalation IH SCH ×2 (03:47→07:54)
[2020-04-30 08:57] LABS: Basophils % 0.1 %; Hematocrit 28.3 % (35.3-44.9); Hemoglobin 8.4 g/dL (11.5-15.4); Immature Granulocytes % 0.9 % (0-4); Lymphocytes % 9.9 %; Mean Corpuscular HGB Conc 29.7 g/dL (31.6-35.5); Mean Corpuscular Hemoglobin 28.7 pg (28.0-33.3); Mean Corpuscular Volume 96.6 fL (83.0-100.0); Monocytes # 0.1 K/mcL (0.0-1.3); Monocytes % 0.8 %; Neutrophils # 8.5 K/mcL (1.6-8.9); Platelet Count 277 K/mcL (140-400); Red Blood Count 2.93 M/mcL (3.82-4.97); Red Cell Distribution Width 14.4 % (11.5-14.5); Segmented Neutrophils % 88.3 %; White Blood Count 9.6 K/mcL (4.3-11.1)
[2020-04-30] MEDS ORDERED: Azithromycin 500 MG in 0.9 % Sodium Chloride 250 ML IVPB SCH (09:00)
[2020-04-30 09:27] LABS: Prothrombin Time 11.1 Seconds (9.4-12.1)
[2020-04-30 09:54] LABS: BUN/Creatinine Ratio 21 (6-26); Blood Urea Nitrogen 16 mg/dL (8-23); Calcium 9.4 mg/dL (8.6-10.3); Carbon Dioxide 36 mEq/L (23-29); Chloride 93 mEq/L (98-107); Chol/HDL Ratio 2.5 (0-4.9); Cholesterol 130 mg/dL (< 200); Glucose 137 mg/dL (70-105); HDL Cholesterol 52 mg/dL (40-59); LDL Cholesterol,Calculated 61 mg/dL (< 100); Magnesium 1.8 mg/dL (1.6-2.6); Osmolality,Calculated 285 (280-300); Phosphorous 2.8 mg/dL (2.7-4.5); Potassium 4.7 mEq/L (3.5-5.1); Sodium 136 mEq/L (136-145); Thyroid Stimulating Hormone 0.938 mcIU/mL (0.340-5.600); Triglycerides 83 mg/dL (< 150); eGFR For African Americans > 60 (> 60); eGFR For Non-African Americans > 60 (> 60)
[2020-04-30] MEDS: Furosemide 20 MG TABLET PO SCH (10:11)
[2020-04-30] MEDS: cefTRIAXone 1,000 MG in 0.9 % Sodium Chloride Mini Bag 100 ML IVPB SCH (10:12)
[2020-04-30] MEDS: MethylPREDNISolone 40 MG/ML VIAL IVP SCH ×2 (11:20→22:13)
[2020-04-30] MEDS: Ipratropium 1 PUFF INHALER IH SCH ×3 (13:10→21:46)
[2020-04-30] MEDS ORDERED: MethylPREDNISolone 40 MG/ML VIAL IVP SCH (22:08)
[2020-04-30] MEDS: Mirtazapine 15 MG TABLET PO SCH (22:13)
[2020-04-30] MEDS: Acetaminophen 325 MG TABLET PO PRN (22:23)
[2020-05-01 01:24] LABS: Basophils % 0.1 %; Hematocrit 24.7 % (35.3-44.9); Hemoglobin 7.4 g/dL (11.5-15.4); Lymphocytes # 0.5 K/mcL (0.6-4.6); Lymphocytes % 4.2 %; Mean Corpuscular Hemoglobin 28.5 pg (28.0-33.3); Mean Platelet Volume 9.2 fL (9.4-12.4); Monocytes # 0.2 K/mcL (0.0-1.3); Monocytes % 1.6 %; Neutrophils # 9.9 K/mcL (1.6-8.9); Nucleated Red Blood Cells 0.2 /100 WBC (0); Platelet Count 294 K/mcL (140-400); Red Cell Distribution Width 14.6 % (11.5-14.5); Segmented Neutrophils % 93.1 %; White Blood Count 10.6 K/mcL (4.3-11.1)
[2020-05-01 02:01] LABS: Alanine Aminotransferase 4 Units/L (7-52); Albumin 3.2 g/dL (3.5-5.7); Albumin/Globulin Ratio 0.8 (1.1-2.2); Alkaline Phosphatase 68 Units/L (34-104); Aspartate Amino Transferase 15 Units/L (13-39); BUN/Creatinine Ratio 22 (6-26); Bilirubin,Total 0.2 mg/dL (0.3-1.0); Blood Urea Nitrogen 20 mg/dL (8-23); Calcium 9.3 mg/dL (8.6-10.3); Carbon Dioxide 32 mEq/L (23-29); Chloride 91 mEq/L (98-107); Globulin 3.8 g/dL (2.4-3.5); Glucose 163 mg/dL (70-105); Osmolality,Calculated 282 (280-300); Potassium 4.8 mEq/L (3.5-5.1); Sodium 133 mEq/L (136-145); eGFR For African Americans > 60 (> 60); eGFR For Non-African Americans > 60 (> 60)
[2020-05-01] MEDS: Ipratropium 1 PUFF INHALER IH SCH ×4 (03:33→22:34)
[2020-05-01] MEDS: *HR* Enoxaparin 40 MG/0.4 ML SYRINGE SQ SCH (04:13)
[2020-05-01] MEDS: MethylPREDNISolone 40 MG/ML VIAL IVP SCH ×3 (04:28→17:42)
[2020-05-01] MEDS: Furosemide 20 MG TABLET PO SCH (07:39)
[2020-05-01] MEDS: cefTRIAXone 1,000 MG in 0.9 % Sodium Chloride Mini Bag 100 ML IVPB SCH (07:39)
[2020-05-01] MEDS: Insulin LISPRO 300 UNITS/3 ML VIAL SQ SCH ×3 (07:40→17:41)
[2020-05-01] MEDS: Aspirin Enteric Coated 81 MG Tablet PO SCH ×2 (09:32→22:34)
[2020-05-01] MEDS: Budesonide/Formoterol 160/4.5 1 PUFF INH IH SCH ×2 (10:21→22:50)
[2020-05-01] MEDS: Tiotropium 18 MCG inhalation IH SCH (10:22)
[2020-05-01 10:30] LABS: Hematocrit 24.9 % (35.3-44.9); Hemoglobin 7.3 g/dL (11.5-15.4)
[2020-05-01] MEDS: Mirtazapine 15 MG TABLET PO SCH (21:42)
[2020-05-02] MEDS: MethylPREDNISolone 40 MG/ML VIAL IVP SCH ×2 (02:19→14:22)
[2020-05-02] MEDS: Albuterol 2.5 MG/3 ML NEBULIZER IH SCH ×4 (03:57→21:40)
[2020-05-02 05:10] LABS: Basophils % 0.1 %; Hematocrit 23.9 % (35.3-44.9); Hemoglobin 7.4 g/dL (11.5-15.4); Lymphocytes # 0.6 K/mcL (0.6-4.6); Lymphocytes % 5.6 %; Mean Corpuscular Hemoglobin 29.1 pg (28.0-33.3); Mean Corpuscular Volume 94.1 fL (83.0-100.0); Mean Platelet Volume 9.1 fL (9.4-12.4); Monocytes # 0.1 K/mcL (0.0-1.3); Monocytes % 1.3 %; Neutrophils # 9.4 K/mcL (1.6-8.9); Nucleated Red Blood Cells 0.2 /100 WBC (0); Platelet Count 287 K/mcL (140-400); Red Blood Count 2.54 M/mcL (3.82-4.97); Red Cell Distribution Width 14.9 % (11.5-14.5); White Blood Count 10.2 K/mcL (4.3-11.1)
[2020-05-02] MEDS: *HR* Enoxaparin 40 MG/0.4 ML SYRINGE SQ SCH (05:24)
[2020-05-02 05:25] LABS: BUN/Creatinine Ratio 29 (6-26); Blood Urea Nitrogen 23 mg/dL (8-23); Calcium 9.2 mg/dL (8.6-10.3); Carbon Dioxide 34 mEq/L (23-29); Chloride 94 mEq/L (98-107); Glucose 165 mg/dL (70-105); Osmolality,Calculated 287 (280-300); Potassium 4.1 mEq/L (3.5-5.1); Sodium 135 mEq/L (136-145); eGFR For African Americans > 60 (> 60); eGFR For Non-African Americans > 60 (> 60)
[2020-05-02] MEDS: Aspirin Enteric Coated 81 MG Tablet PO SCH (08:41)
[2020-05-02] MEDS: Furosemide 20 MG TABLET PO SCH (08:41)
[2020-05-02] MEDS: cefTRIAXone 1,000 MG in 0.9 % Sodium Chloride Mini Bag 100 ML IVPB SCH (08:41)
[2020-05-02] MEDS: Insulin LISPRO 300 UNITS/3 ML VIAL SQ SCH ×2 (09:16→14:22)
[2020-05-02] MEDS: Tiotropium 18 MCG inhalation IH SCH (10:09)
[2020-05-02] MEDS: Budesonide/Formoterol 160/4.5 1 PUFF INH IH SCH ×2 (10:10→21:40)
[2020-05-02 14:21] LABS: Hematocrit 25.3 % (35.3-44.9); Hemoglobin 7.9 g/dL (11.5-15.4)
[2020-05-02] MEDS: Mirtazapine 15 MG TABLET PO SCH (20:34)
[2020-05-03] MEDS: Albuterol 2.5 MG/3 ML NEBULIZER IH SCH ×4 (03:22→22:42)
[2020-05-03] MEDS: MethylPREDNISolone 40 MG/ML VIAL IVP SCH ×3 (03:45→23:07)
[2020-05-03 05:01] LABS: Basophils % 0.1 %; Hematocrit 24.1 % (35.3-44.9); Hemoglobin 7.5 g/dL (11.5-15.4); Immature Granulocytes % 1.4 % (0-4); Lymphocytes # 0.9 K/mcL (0.6-4.6); Lymphocytes % 8.8 %; Mean Corpuscular HGB Conc 31.1 g/dL (31.6-35.5); Mean Corpuscular Volume 96.4 fL (83.0-100.0); Mean Platelet Volume 9.4 fL (9.4-12.4); Monocytes # 0.4 K/mcL (0.0-1.3); Monocytes % 3.9 %; Neutrophils # 8.3 K/mcL (1.6-8.9); Nucleated Red Blood Cells 0.3 /100 WBC (0); Platelet Count 223 K/mcL (140-400); Red Cell Distribution Width 15.3 % (11.5-14.5); Segmented Neutrophils % 85.8 %; White Blood Count 9.7 K/mcL (4.3-11.1)
[2020-05-03 05:19] LABS: BUN/Creatinine Ratio 29 (6-26); Blood Urea Nitrogen 24 mg/dL (8-23); Carbon Dioxide 34 mEq/L (23-29); Chloride 97 mEq/L (98-107); Glucose 153 mg/dL (70-105); Osmolality,Calculated 293 (280-300); Potassium 3.8 mEq/L (3.5-5.1); Sodium 138 mEq/L (136-145); eGFR For African Americans > 60 (> 60); eGFR For Non-African Americans > 60 (> 60)
[2020-05-03] MEDS: *HR* Enoxaparin 40 MG/0.4 ML SYRINGE SQ SCH (06:17)
[2020-05-03] MEDS: Insulin LISPRO 300 UNITS/3 ML VIAL SQ SCH ×5 (07:26→21:11)
[2020-05-03] MEDS: cefTRIAXone 1,000 MG in 0.9 % Sodium Chloride Mini Bag 100 ML IVPB SCH (08:19)
[2020-05-03] MEDS: Furosemide 20 MG TABLET PO SCH (08:20)
[2020-05-03] MEDS: Aspirin Enteric Coated 81 MG Tablet PO SCH (08:20)
[2020-05-03] MEDS: Budesonide/Formoterol 160/4.5 1 PUFF INH IH SCH ×2 (10:38→22:42)
[2020-05-03] MEDS: Tiotropium 18 MCG inhalation IH SCH (10:38)
[2020-05-03] MEDS: Mirtazapine 15 MG TABLET PO SCH (20:08)
[2020-05-04 02:03] LABS: Hematocrit 24.7 % (35.3-44.9); Hemoglobin 7.6 g/dL (11.5-15.4)
[2020-05-04] MEDS: Albuterol 2.5 MG/3 ML NEBULIZER IH SCH ×4 (03:44→22:11)
[2020-05-04] MEDS: *HR* Enoxaparin 40 MG/0.4 ML SYRINGE SQ SCH (05:05)
[2020-05-04] MEDS: Insulin LISPRO 300 UNITS/3 ML VIAL SQ SCH ×4 (07:58→20:26)
[2020-05-04] MEDS: cefTRIAXone 1,000 MG in 0.9 % Sodium Chloride Mini Bag 100 ML IVPB SCH (09:34)
[2020-05-04] MEDS: Furosemide 20 MG TABLET PO SCH (09:34)
[2020-05-04] MEDS: Aspirin Enteric Coated 81 MG Tablet PO SCH (09:34)
[2020-05-04] MEDS: Budesonide/Formoterol 160/4.5 1 PUFF INH IH SCH ×2 (10:53→22:09)
[2020-05-04] MEDS: Tiotropium 18 MCG inhalation IH SCH (10:54)
[2020-05-04] MEDS: MethylPREDNISolone 40 MG/ML VIAL IVP SCH ×2 (12:02→23:45)
[2020-05-04] MEDS: Mirtazapine 15 MG TABLET PO SCH (20:26)
[2020-05-05] MEDS: Albuterol 2.5 MG/3 ML NEBULIZER IH SCH ×3 (03:37→15:52)
[2020-05-05] MEDS: *HR* Enoxaparin 40 MG/0.4 ML SYRINGE SQ SCH (05:07)
[2020-05-05] MEDS: cefTRIAXone 1,000 MG in 0.9 % Sodium Chloride Mini Bag 100 ML IVPB SCH (07:45)
[2020-05-05] MEDS: Insulin LISPRO 300 UNITS/3 ML VIAL SQ SCH ×2 (07:46→11:53)
[2020-05-05] MEDS: Aspirin Enteric Coated 81 MG Tablet PO SCH (07:47)
[2020-05-05] MEDS: Acetaminophen 325 MG TABLET PO PRN (07:47)
[2020-05-05] MEDS: Furosemide 20 MG TABLET PO SCH (07:47)
[2020-05-05] MEDS: Budesonide/Formoterol 160/4.5 1 PUFF INH IH SCH (09:25)
[2020-05-05] MEDS: Tiotropium 18 MCG inhalation IH SCH (09:26)
[2020-05-05 11:54] VITALS: BP 100/67
[2020-05-05] MEDS: MethylPREDNISolone 40 MG/ML VIAL IVP SCH (11:54)
== END 2020-05-05 16:43 | disposition home or self-care (01) | DRG 139 ==
LOC: 2NENU → SUATTDRO 18:16 → 2ANU 05-01 21:56
PROVIDERS: ADMIT Internal Medicine; ATTEND Internal Medicine

== ENCOUNTER 2020-12-06 13:49 | Inpatient (IN) ==
[2020-12-06] MEDS ORDERED: Naloxone 0.4 MG/ML INJ IVP PRN (17:23)
[2020-12-06] MEDS ORDERED: Ondansetron 4 MG/2 ML VIAL IVP PRN (17:23)
[2020-12-06] MEDS ORDERED: Acetaminophen 325 MG TABLET PO PRN (17:23)
[2020-12-06] MEDS ORDERED: methylPREDNISolone 125 MG/2 ML VIAL IVP ONE (17:45)
[2020-12-06] MEDS ORDERED: D5% in Water 1,000 ML IVC PRN (17:46)
[2020-12-06] MEDS ORDERED: Dextrose Gel 15 GM/37.5 ML TUBE PO PRN ×2 (17:46)
[2020-12-06] MEDS ORDERED: *HR* Dextrose 50 % in Water (Vial) 50 ML VIAL IVP PRN (17:46)
[2020-12-06] MEDS ORDERED: Azithromycin 500 MG in 0.9 % Sodium Chloride 250 ML IVPB SCH (18:00)
[2020-12-06] MEDS ORDERED: 0.9 % Sodium Chloride 1,000 ML IVC SCH (18:00)
[2020-12-06 18:10] LABS: ABG Base Excess 16 mEq/L (-2 to 3); ABG HCO3 44 mEq/L (21-27); ABG Oxygen Saturation 94 % (95-98); ABG PCO2 70 mmHg (35-45); ABG PO2 77 mmHg (85-104); ABG TCO2 46 mEq/L (20-26)
[2020-12-06] MEDS: levoFLOXacin 750 MG/150 ML 750 MG/150 ML BAG IVPB SCH (18:14)
[2020-12-06] MEDS: Insulin LISPRO 300 UNITS/3 ML VIAL SUBQ SCH ×2 (18:15→23:55)
[2020-12-06] MEDS: Budesonide/Formoterol 160/4.5 1 PUFF INH IH SCH (19:35)
[2020-12-06] MEDS: Ipratropium/Albuterol Neb 3 ML IH SCH ×2 (19:35→23:16)
[2020-12-06] MEDS: *HR* Heparin 5,000 UNIT/ML VIAL SQ SCH (22:26)
[2020-12-07] MEDS: MethylPREDNISolone 40 MG/ML VIAL IVP SCH ×3 (01:54→16:53)
[2020-12-07] MEDS: Ipratropium/Albuterol Neb 3 ML IH SCH ×5 (03:29→20:17)
[2020-12-07 04:00] LABS: Basophils % 0.1 %; Hematocrit 36.7 % (35.3-44.9); Hemoglobin 11.4 g/dL (11.5-15.4); Immature Granulocytes % 0.4 % (0-4); Lymphocytes # 0.4 K/mcL (0.6-4.6); Lymphocytes % 4.6 %; Mean Corpuscular HGB Conc 31.1 g/dL (31.6-35.5); Mean Corpuscular Hemoglobin 27.9 pg (28.0-33.3); Monocytes % 0.5 %; Neutrophils # 7.7 K/mcL (1.6-8.9); Platelet Count 236 K/mcL (140-400); Red Blood Count 4.08 M/mcL (3.82-4.97); Red Cell Distribution Width 12.9 % (11.5-14.5); Segmented Neutrophils % 94.4 %; White Blood Count 8.2 K/mcL (4.3-11.1)
[2020-12-07 04:11] LABS: INR 1.1; Prothrombin Time 13.1 Seconds (9.4-12.1)
[2020-12-07 04:13] LABS: Activated Partial Thrombo Time 29.7 Seconds (26.0-36.0)
[2020-12-07 04:20] LABS: BUN/Creatinine Ratio 16 (6-26); Blood Urea Nitrogen 10 mg/dL (8-23); Calcium 9.2 mg/dL (8.6-10.3); Carbon Dioxide 36 mEq/L (23-29); Chloride 92 mEq/L (98-107); Glucose 133 mg/dL (70-105); Magnesium 1.7 mg/dL (1.6-2.6); Osmolality,Calculated 283 (280-300); Phosphorous 2.6 mg/dL (2.7-4.5); Potassium 3.8 mEq/L (3.5-5.1); Sodium 136 mEq/L (136-145); eGFR For African Americans > 60 (> 60); eGFR For Non-African Americans > 60 (> 60)
[2020-12-07 04:28] LABS: Platelet Estimate Normal (Normal); Reactive Lymphocytes Present (Not Present)
[2020-12-07] MEDS: Insulin LISPRO 300 UNITS/3 ML VIAL SUBQ SCH ×3 (05:11→21:59)
[2020-12-07] MEDS: *HR* Heparin 5,000 UNIT/ML VIAL SQ SCH ×3 (05:12→21:56)
[2020-12-07] MEDS: Budesonide/Formoterol 160/4.5 1 PUFF INH IH SCH ×2 (07:24→20:17)
[2020-12-07] MEDS: levoFLOXacin 750 MG/150 ML 750 MG/150 ML BAG IVPB SCH (07:53)
[2020-12-07 11:34] LABS: ABG Base Excess 10 mEq/L (-2 to 3); ABG HCO3 37 mEq/L (21-27); ABG Oxygen Saturation 96 % (95-98); ABG PCO2 58 mmHg (35-45); ABG PH 7.41 pH Units (7.32-7.45); ABG PO2 84 mmHg (85-104); ABG TCO2 38 mEq/L (20-26)
[2020-12-07] MEDS ORDERED: MethylPREDNISolone 40 MG/ML VIAL IVP SCH (17:26)
[2020-12-08] MEDS: Ipratropium/Albuterol Neb 3 ML IH SCH ×7 (00:04→23:14)
[2020-12-08] MEDS: MethylPREDNISolone 40 MG/ML VIAL IVP SCH ×2 (00:17→09:49)
[2020-12-08 02:20] LABS: Basophils % 0.1 %; Hematocrit 34.8 % (35.3-44.9); Hemoglobin 10.8 g/dL (11.5-15.4); Immature Granulocytes % 0.5 % (0-4); Lymphocytes # 0.3 K/mcL (0.6-4.6); Lymphocytes % 2.1 %; Mean Corpuscular Hemoglobin 28.1 pg (28.0-33.3); Mean Corpuscular Volume 90.6 fL (83.0-100.0); Mean Platelet Volume 9.6 fL (9.4-12.4); Monocytes # 0.3 K/mcL (0.0-1.3); Monocytes % 2.2 %; Neutrophils # 13.4 K/mcL (1.6-8.9); Platelet Count 210 K/mcL (140-400); Red Blood Count 3.84 M/mcL (3.82-4.97); Red Cell Distribution Width 13.2 % (11.5-14.5); Segmented Neutrophils % 95.1 %
[2020-12-08 02:24] LABS: White Blood Count 14.1 K/mcL (4.3-11.1)
[2020-12-08 02:39] LABS: BUN/Creatinine Ratio 21 (6-26); Blood Urea Nitrogen 17 mg/dL (8-23); Calcium 9.3 mg/dL (8.6-10.3); Carbon Dioxide 33 mEq/L (23-29); Chloride 93 mEq/L (98-107); Glucose 148 mg/dL (70-105); Magnesium 1.6 mg/dL (1.6-2.6); Osmolality,Calculated 284 (280-300); Phosphorous 1.7 mg/dL (2.7-4.5); Potassium 3.6 mEq/L (3.5-5.1); Sodium 135 mEq/L (136-145); eGFR For African Americans > 60 (> 60); eGFR For Non-African Americans > 60 (> 60)
[2020-12-08] MEDS: *HR* Heparin 5,000 UNIT/ML VIAL SQ SCH ×3 (06:22→20:23)
[2020-12-08] MEDS: Budesonide/Formoterol 160/4.5 1 PUFF INH IH SCH ×2 (07:19→19:44)
[2020-12-08] MEDS: Insulin LISPRO 300 UNITS/3 ML VIAL SUBQ SCH ×4 (07:51→20:14)
[2020-12-08] MEDS: Aspirin Enteric Coated 81 MG Tablet PO SCH (09:49)
[2020-12-08] MEDS: Metoprolol XL (24 HR) Succ 25 MG TAB.ER.24H PO SCH (09:49)
[2020-12-08] MEDS: levoFLOXacin 750 MG/150 ML 750 MG/150 ML BAG IVPB SCH (09:49)
[2020-12-08] MEDS: Ascorbic Acid 500 MG TABLET PO SCH (09:49)
[2020-12-08] MEDS ORDERED: Potassium Phosphate 44 MEQ in 0.9 % Sodium Chloride 250 ML IVPB ONE (12:11)
[2020-12-08] MEDS: Nicotine 14 MG PATCH.TD24 TD SCH (17:12)
[2020-12-09 01:07] LABS: Basophils % 0.1 %; Hematocrit 33.7 % (35.3-44.9); Hemoglobin 10.4 g/dL (11.5-15.4); Immature Granulocytes % 0.8 % (0-4); Lymphocytes # 0.6 K/mcL (0.6-4.6); Lymphocytes % 3.7 %; Mean Corpuscular HGB Conc 30.9 g/dL (31.6-35.5); Mean Corpuscular Hemoglobin 27.9 pg (28.0-33.3); Mean Corpuscular Volume 90.3 fL (83.0-100.0); Mean Platelet Volume 9.4 fL (9.4-12.4); Monocytes # 0.6 K/mcL (0.0-1.3); Monocytes % 3.6 %; Neutrophils # 14.6 K/mcL (1.6-8.9); Platelet Count 212 K/mcL (140-400); Red Blood Count 3.73 M/mcL (3.82-4.97); Red Cell Distribution Width 13.5 % (11.5-14.5); Segmented Neutrophils % 91.8 %; White Blood Count 15.9 K/mcL (4.3-11.1)
[2020-12-09 01:07] LABS: VBG HCO3 35 mEq/L (21-27); VBG PCO2 52 mmHg (41-51); VBG PH 7.43 pH Units (7.32-7.42); VBG PO2 89 mmHg (25-50)
[2020-12-09 01:28] LABS: % Iron Saturation 30 % (15-50); BUN/Creatinine Ratio 25 (6-26); Blood Urea Nitrogen 20 mg/dL (8-23); Calcium 8.9 mg/dL (8.6-10.3); Carbon Dioxide 35 mEq/L (23-29); Chloride 93 mEq/L (98-107); Glucose 185 mg/dL (70-105); Iron 96 mcg/dL (50-170); Magnesium 1.4 mg/dL (1.6-2.6); Osmolality,Calculated 283 (280-300); Potassium 3.9 mEq/L (3.5-5.1); Sodium 133 mEq/L (136-145); Transferrin 227 mg/dL (203-362); eGFR For African Americans > 60 (> 60); eGFR For Non-African Americans > 60 (> 60)
[2020-12-09 01:46] LABS: Estimated Average Glucose 111 mg/dl; Hemoglobin A1C 5.5 %
[2020-12-09 01:47] LABS: Ferritin 23 ng/mL (10-120)
[2020-12-09] MEDS: Ipratropium/Albuterol Neb 3 ML IH SCH ×3 (04:25→10:41)
[2020-12-09] MEDS: *HR* Heparin 5,000 UNIT/ML VIAL SQ SCH (05:14)
[2020-12-09] MEDS: Aspirin Enteric Coated 81 MG Tablet PO SCH (08:38)
[2020-12-09] MEDS: Ascorbic Acid 500 MG TABLET PO SCH (08:38)
[2020-12-09] MEDS: Metoprolol XL (24 HR) Succ 25 MG TAB.ER.24H PO SCH (08:38)
[2020-12-09] MEDS: Nicotine 14 MG PATCH.TD24 TD SCH (08:39)
[2020-12-09] MEDS: Insulin LISPRO 300 UNITS/3 ML VIAL SUBQ SCH ×2 (08:39→11:26)
[2020-12-09] MEDS ORDERED: Iron Sucrose Complex 250 MG in 0.9 % Sodium Chloride 250 ML IVPB SCH (09:00)
[2020-12-09] MEDS ORDERED: predniSONE 20 MG TABLET PO SCH (09:00)
[2020-12-09] MEDS ORDERED: Multivit/Ca/Min/Fe/FA 1 TAB TABLET PO SCH (09:00)
[2020-12-09] MEDS ORDERED: FLU Vac QV 20-21 (6Month+)/PF 0.5 ML SYRINGE IM ONE (09:59)
[2020-12-09] MEDS ORDERED: Tiotropium 10 INH DOSE IH SCH (10:00)
[2020-12-09] MEDS: Budesonide/Formoterol 160/4.5 1 PUFF INH IH SCH (10:41)
[2020-12-09 10:59] VITALS: BP 113/75
[2020-12-09] MEDS: levoFLOXacin 750 MG/150 ML 750 MG/150 ML BAG IVPB SCH (11:02)
== END 2020-12-09 12:17 | disposition home health service (06) | DRG 140 ==
LOC: 2ANU → SUATTDRO 16:30
PROVIDERS: ADMIT Internal Medicine; ATTEND Pharmacist

== ENCOUNTER 2021-06-29 18:30 | Inpatient (IN) ==
[2021-06-29] MEDS ORDERED: Ipratropium/Albuterol Neb 3 ML IH ONE ×2 (19:00→22:51)
[2021-06-29] MEDS ORDERED: cefTRIAXone 1,000 MG in Water for inj. (sterile) 10 ML IVP ONE (19:00)
[2021-06-29] MEDS ORDERED: methylPREDNISolone 125 MG/2 ML VIAL IVP ONE (19:00)
[2021-06-29] MEDS ORDERED: Azithromycin 500 MG in 0.9 % Sodium Chloride 250 ML IVPB ONE (19:00)
[2021-06-29] MEDS ORDERED: Aspirin 325 MG TABLET PO ONE (19:02)
[2021-06-29] MEDS ORDERED: 0.9 % Sodium Chloride 1,000 ML IVC ONE (19:12)
[2021-06-29 20:24] LABS: Bacteria,Urine Few per hpf (None-Few); Bilirubin,Urine Negative (Negative); Blood,Urine Trace (Negative); Clarity,Urine Clear (Clear); Color,Urine Light-Yellow (Yellow); Glucose,Urine (UA) Normal (Normal); Ketones,Urine Negative (Negative); Leukocyte Esterase,Urine Small (Negative); Mucus,Urine Few per lpf (None-Few); Nitrite,Urine Negative (Negative); PH,Urine 5.5 pH Units (5.0-8.0); Protein,Urine Negative (Neg-Trace); RBC,Urine 0-3 per hpf (0-3); Specific Gravity,Urine 1.009 (1.010-1.025); Squamous Epithelial Cell,Urine Few per hpf (None-Few); Urobilinogen,Urine Normal (Normal); WBC,Urine 15-30 per hpf (0-3)
[2021-06-29 20:57] LABS: Influenza A PCR Negative (Negative); Influenza B PCR Negative (Negative); Resp. Syncytial Virus PCR Negative (Negative)
[2021-06-29 20:58] LABS: SARS-CoV-2 by PCR (In House) Negative (Negative)
[2021-06-29 21:11] LABS: Basophils % 0.2 %; Eosinophils % 0.1 %; Hematocrit 46.3 % (35.3-44.9); Hemoglobin 15.2 g/dL (11.5-15.4); Immature Granulocytes % 0.5 % (0-4); Lymphocytes # 1.4 K/mcL (0.6-4.6); Lymphocytes % 7.1 %; Mean Corpuscular HGB Conc 32.8 g/dL (31.6-35.5); Mean Corpuscular Hemoglobin 30.3 pg (28.0-33.3); Mean Corpuscular Volume 92.2 fL (83.0-100.0); Mean Platelet Volume 9.5 fL (9.4-12.4); Monocytes # 1.2 K/mcL (0.0-1.3); Neutrophils # 16.5 K/mcL (1.6-8.9); Platelet Count 229 K/mcL (140-400); Red Blood Count 5.02 M/mcL (3.82-4.97); Red Cell Distribution Width 11.9 % (11.5-14.5); Segmented Neutrophils % 86.1 %; White Blood Count 19.2 K/mcL (4.3-11.1)
[2021-06-29 21:21] LABS: INR 1.1; Prothrombin Time 12.4 Seconds (9.4-12.1)
[2021-06-29 21:23] LABS: Activated Partial Thrombo Time 30.8 Seconds (26.0-36.0)
[2021-06-29 21:31] LABS: Alanine Aminotransferase 7 Units/L (7-52); Albumin/Globulin Ratio 1.5 (1.1-2.2); Alkaline Phosphatase 117 Units/L (34-104); Aspartate Amino Transferase 14 Units/L (13-39); BUN/Creatinine Ratio 8 (6-26); Bilirubin,Direct 0.1 mg/dL (0.0-0.2); Bilirubin,Indirect 0.3 mg/dL (0.0-1.0); Bilirubin,Total 0.4 mg/dL (0.3-1.0); Blood Urea Nitrogen 7 mg/dL (8-23); Calcium 9.4 mg/dL (8.6-10.3); Carbon Dioxide 37 mEq/L (23-29); Chloride 91 mEq/L (98-107); Globulin 2.6 g/dL (2.4-3.5); Glucose 123 mg/dL (70-105); Magnesium 1.4 mg/dL (1.6-2.6); Osmolality,Calculated 283 (280-300); Phosphorous 2.2 mg/dL (2.7-4.5); Potassium 3.1 mEq/L (3.5-5.1); Sodium 137 mEq/L (136-145); Total Protein 6.6 g/dL (6.4-8.9); Troponin I < 0.03 ng/mL (< 0.04); eGFR For African Americans > 60 (> 60); eGFR For Non-African Americans > 60 (> 60)
[2021-06-29] MEDS ORDERED: 0.9 % Sodium Chloride 1,000 ML IV ONE (22:00)
[2021-06-29 22:54] LABS: VBG HCO3 39 mEq/L (21-27); VBG PCO2 74 mmHg (41-51); VBG PH 7.33 pH Units (7.32-7.42); VBG PO2 70 mmHg (25-50)
[2021-06-30] MEDS ORDERED: Ondansetron ODT 4 MG TAB.RAPDIS SL PRN (01:29)
[2021-06-30] MEDS ORDERED: Naloxone 0.4 MG/ML INJ IVP PRN (01:29)
[2021-06-30] MEDS ORDERED: Ibuprofen 400 MG TABLET PO PRN (01:29)
[2021-06-30] MEDS ORDERED: Ringers Solution, Lactated 1,000 ML IVC SCH (01:30)
[2021-06-30] MEDS ORDERED: Isovue-370 500 ML BOTTLE IVP ONE (02:04)
[2021-06-30] MEDS: Ipratropium/Albuterol Neb 3 ML IH SCH ×5 (04:15→19:58)
[2021-06-30 04:22] LABS: Basophils % 0.1 %; Hematocrit 41.9 % (35.3-44.9); Hemoglobin 13.4 g/dL (11.5-15.4); Immature Granulocytes % 0.7 % (0-4); Lymphocytes # 0.4 K/mcL (0.6-4.6); Lymphocytes % 2.8 %; Mean Corpuscular Hemoglobin 30.4 pg (28.0-33.3); Mean Platelet Volume 9.7 fL (9.4-12.4); Monocytes # 0.1 K/mcL (0.0-1.3); Monocytes % 0.4 %; Neutrophils # 14.3 K/mcL (1.6-8.9); Platelet Count 178 K/mcL (140-400); Red Blood Count 4.41 M/mcL (3.82-4.97); Red Cell Distribution Width 11.9 % (11.5-14.5); White Blood Count 14.9 K/mcL (4.3-11.1)
[2021-06-30 04:51] LABS: Alanine Aminotransferase 4 Units/L (7-52); Albumin 3.5 g/dL (3.5-5.7); Albumin/Globulin Ratio 1.3 (1.1-2.2); Alkaline Phosphatase 94 Units/L (34-104); Aspartate Amino Transferase 12 Units/L (13-39); BUN/Creatinine Ratio 11 (6-26); Bilirubin,Total 0.3 mg/dL (0.3-1.0); Blood Urea Nitrogen 8 mg/dL (8-23); Calcium 8.2 mg/dL (8.6-10.3); Carbon Dioxide 29 mEq/L (23-29); Chloride 96 mEq/L (98-107); Globulin 2.8 g/dL (2.4-3.5); Glucose 196 mg/dL (70-105); Osmolality,Calculated 284 (280-300); Potassium 3.9 mEq/L (3.5-5.1); Sodium 135 mEq/L (136-145); Total Protein 6.3 g/dL (6.4-8.9); eGFR For African Americans > 60 (> 60); eGFR For Non-African Americans > 60 (> 60)
[2021-06-30] MEDS: Doxycycline 100 MG in 0.9 % Sodium Chloride Mini Bag 100 ML IVPB SCH ×2 (05:40→18:20)
[2021-06-30] MEDS: methylPREDNISolone 125 MG/2 ML VIAL IVP SCH ×2 (08:52→15:24)
[2021-06-30] MEDS: Nicotine 21 MG PATCH.TD24 TD SCH (08:52)
[2021-06-30] MEDS: cefTRIAXone 1,000 MG in Water for inj. (sterile) 10 ML IVP SCH (08:54)
[2021-06-30 10:35] LABS: Adenovirus Not Detected (Not Detect); Bordetella Pertussis Not Detected (Not Detect); Chlamydophila pneumoniae Not Detected (Not Detect); Coronavirus 229E Not Detected (Not Detect); Coronavirus HKU1 Not Detected (Not Detect); Coronavirus NL63 Not Detected (Not Detect); Coronavirus OC43 Not Detected (Not Detect); Human Metapneumovirus Not Detected (Not Detect); Human Rhinovirus/Enterovirus Not Detected (Not Detect); Influenza A Subtype 2009 H1 Not Detected (Not Detect); Influenza B Not Detected (Not Detect); Mycoplasma pneumoniae Not Detected (Not Detect); Parainfluenza Virus 1 Not Detected (Not Detect); Parainfluenza Virus 2 Not Detected (Not Detect); Parainfluenza Virus 3 Not Detected (Not Detect); Parainfluenza Virus 4 Not Detected (Not Detect); Respiratory Syncytial Virus Not Detected (Not Detect); SARS-CoV-2 Not Detected (Not Detect)
[2021-06-30 10:42] LABS: Magnesium 1.3 mg/dL (1.6-2.6)
[2021-06-30] MEDS: *HR* Heparin 5,000 UNIT/ML VIAL SQ SCH (18:20)
[2021-06-30] MEDS: Mirtazapine 15 MG TABLET PO SCH (21:52)
[2021-07-01] MEDS: Ipratropium/Albuterol Neb 3 ML IH SCH ×7 (00:03→23:03)
[2021-07-01] MEDS: MethylPREDNISolone 40 MG/ML VIAL IVP SCH ×3 (03:58→17:57)
[2021-07-01] MEDS: *HR* Heparin 5,000 UNIT/ML VIAL SQ SCH ×2 (05:29→17:58)
[2021-07-01] MEDS: Doxycycline 100 MG in 0.9 % Sodium Chloride Mini Bag 100 ML IVPB SCH ×2 (05:32→22:25)
[2021-07-01 06:28] LABS: Basophils % 0.1 %; Hematocrit 39.7 % (35.3-44.9); Immature Granulocytes % 0.6 % (0-4); Lymphocytes # 0.6 K/mcL (0.6-4.6); Lymphocytes % 4.8 %; Mean Corpuscular HGB Conc 32.7 g/dL (31.6-35.5); Mean Corpuscular Volume 94.5 fL (83.0-100.0); Mean Platelet Volume 9.8 fL (9.4-12.4); Monocytes # 0.3 K/mcL (0.0-1.3); Monocytes % 2.2 %; Neutrophils # 11.1 K/mcL (1.6-8.9); Platelet Count 179 K/mcL (140-400); Red Cell Distribution Width 12.1 % (11.5-14.5); Segmented Neutrophils % 92.3 %; White Blood Count 12.1 K/mcL (4.3-11.1)
[2021-07-01 06:58] LABS: BUN/Creatinine Ratio 18 (6-26); Blood Urea Nitrogen 16 mg/dL (8-23); Carbon Dioxide 26 mEq/L (23-29); Chloride 95 mEq/L (98-107); Glucose 279 mg/dL (70-105); Magnesium 2.3 mg/dL (1.6-2.6); Osmolality,Calculated 289 (280-300); Phosphorous 1.8 mg/dL (2.7-4.5); Potassium 3.9 mEq/L (3.5-5.1); Sodium 134 mEq/L (136-145); eGFR For African Americans > 60 (> 60); eGFR For Non-African Americans > 60 (> 60)
[2021-07-01] MEDS: Lactobacillus 1 EACH CAP.SPRINK PO SCH (10:02)
[2021-07-01] MEDS: Folic Acid 1 MG TABLET PO SCH (10:02)
[2021-07-01] MEDS: Aspirin Enteric Coated 81 MG Tablet PO SCH (10:02)
[2021-07-01] MEDS: ARIPiprazole 10 MG TABLET PO SCH (10:02)
[2021-07-01] MEDS: Nicotine 21 MG PATCH.TD24 TD SCH (10:03)
[2021-07-01] MEDS: cefTRIAXone 1,000 MG in Water for inj. (sterile) 10 ML IVP SCH (10:03)
[2021-07-01] MEDS: Furosemide 20 MG TABLET PO SCH (10:04)
[2021-07-01] MEDS: Mirtazapine 15 MG TABLET PO SCH (21:22)
[2021-07-02 03:26] LABS: Hematocrit 36.8 % (35.3-44.9); Mean Corpuscular HGB Conc 32.6 g/dL (31.6-35.5); Mean Corpuscular Hemoglobin 30.5 pg (28.0-33.3); Mean Corpuscular Volume 93.4 fL (83.0-100.0); Mean Platelet Volume 9.7 fL (9.4-12.4); Platelet Count 190 K/mcL (140-400); Red Blood Count 3.94 M/mcL (3.82-4.97); Red Cell Distribution Width 12.4 % (11.5-14.5)
[2021-07-02] MEDS: Ipratropium/Albuterol Neb 3 ML IH SCH ×5 (03:32→20:50)
[2021-07-02 03:48] LABS: BUN/Creatinine Ratio 28 (6-26); Blood Urea Nitrogen 24 mg/dL (8-23); Calcium 8.7 mg/dL (8.6-10.3); Carbon Dioxide 33 mEq/L (23-29); Chloride 98 mEq/L (98-107); Glucose 201 mg/dL (70-105); Magnesium 1.8 mg/dL (1.6-2.6); Osmolality,Calculated 294 (280-300); Phosphorous 3.1 mg/dL (2.7-4.5); Potassium 4.3 mEq/L (3.5-5.1); Sodium 137 mEq/L (136-145); eGFR For African Americans > 60 (> 60); eGFR For Non-African Americans > 60 (> 60)
[2021-07-02] MEDS: MethylPREDNISolone 40 MG/ML VIAL IVP SCH ×2 (05:59→17:28)
[2021-07-02] MEDS: *HR* Heparin 5,000 UNIT/ML VIAL SQ SCH ×2 (05:59→17:28)
[2021-07-02] MEDS: Acetaminophen 325 MG TABLET PO PRN (06:04)
[2021-07-02] MEDS: Aspirin Enteric Coated 81 MG Tablet PO SCH (08:13)
[2021-07-02] MEDS: ARIPiprazole 10 MG TABLET PO SCH (08:13)
[2021-07-02] MEDS: Folic Acid 1 MG TABLET PO SCH (08:14)
[2021-07-02] MEDS: Lactobacillus 1 EACH CAP.SPRINK PO SCH (08:14)
[2021-07-02] MEDS: Furosemide 20 MG TABLET PO SCH (08:15)
[2021-07-02] MEDS: Nicotine 21 MG PATCH.TD24 TD SCH (08:18)
[2021-07-02] MEDS: Doxycycline 100 MG in 0.9 % Sodium Chloride Mini Bag 100 ML IVPB SCH (08:42)
[2021-07-02] MEDS: cefTRIAXone 1,000 MG in Water for inj. (sterile) 10 ML IVP SCH (08:47)
[2021-07-02] MEDS: Amoxicillin/Clavulanate 500 MG TABLET PO SCH (17:28)
[2021-07-02] MEDS: Mirtazapine 15 MG TABLET PO SCH (20:39)
[2021-07-03] MEDS: Ipratropium/Albuterol Neb 3 ML IH SCH ×7 (00:13→23:36)
[2021-07-03 01:55] LABS: Hematocrit 38.5 % (35.3-44.9); Hemoglobin 12.6 g/dL (11.5-15.4); Mean Corpuscular HGB Conc 32.7 g/dL (31.6-35.5); Mean Corpuscular Hemoglobin 30.8 pg (28.0-33.3); Mean Corpuscular Volume 94.1 fL (83.0-100.0); Mean Platelet Volume 9.6 fL (9.4-12.4); Platelet Count 185 K/mcL (140-400); Red Blood Count 4.09 M/mcL (3.82-4.97); Red Cell Distribution Width 12.5 % (11.5-14.5); White Blood Count 9.7 K/mcL (4.3-11.1)
[2021-07-03 02:16] LABS: BUN/Creatinine Ratio 27 (6-26); Blood Urea Nitrogen 27 mg/dL (8-23); Carbon Dioxide 32 mEq/L (23-29); Chloride 96 mEq/L (98-107); Glucose 279 mg/dL (70-105); Osmolality,Calculated 295 (280-300); Potassium 4.4 mEq/L (3.5-5.1); Sodium 135 mEq/L (136-145); eGFR For African Americans > 60 (> 60); eGFR For Non-African Americans 56 (> 60)
[2021-07-03] MEDS: *HR* Heparin 5,000 UNIT/ML VIAL SQ SCH ×2 (05:25→17:08)
[2021-07-03] MEDS: Acetaminophen 325 MG TABLET PO PRN ×2 (05:26→17:11)
[2021-07-03 06:48] LABS: ABG Base Excess 9 mEq/L (-2 to 3); ABG HCO3 35 mEq/L (21-27); ABG Oxygen Saturation 89 % (95-98); ABG PCO2 53 mmHg (35-45); ABG PH 7.43 pH Units (7.32-7.45); ABG PO2 56 mmHg (85-104); ABG TCO2 36 mEq/L (20-26)
[2021-07-03] MEDS: Nicotine 21 MG PATCH.TD24 TD SCH (08:12)
[2021-07-03] MEDS: predniSONE 20 MG TABLET PO SCH (08:12)
[2021-07-03] MEDS: ARIPiprazole 10 MG TABLET PO SCH (08:12)
[2021-07-03] MEDS: Folic Acid 1 MG TABLET PO SCH (08:12)
[2021-07-03] MEDS: Furosemide 20 MG TABLET PO SCH (08:12)
[2021-07-03] MEDS: Aspirin Enteric Coated 81 MG Tablet PO SCH (08:12)
[2021-07-03] MEDS: Amoxicillin/Clavulanate 500 MG TABLET PO SCH ×2 (08:12→17:08)
[2021-07-03] MEDS: Lactobacillus 1 EACH CAP.SPRINK PO SCH (08:12)
[2021-07-03] MEDS: Budesonide/Formoterol 160/4.5 1 PUFF INH IH SCH (19:40)
[2021-07-03] MEDS: Mirtazapine 15 MG TABLET PO SCH (20:41)
[2021-07-04] MEDS: Ipratropium/Albuterol Neb 3 ML IH SCH ×3 (03:41→11:00)
[2021-07-04] MEDS: *HR* Heparin 5,000 UNIT/ML VIAL SQ SCH (05:17)
[2021-07-04] MEDS: Budesonide/Formoterol 160/4.5 1 PUFF INH IH SCH (07:27)
[2021-07-04] MEDS: Nicotine 21 MG PATCH.TD24 TD SCH (08:45)
[2021-07-04] MEDS: predniSONE 20 MG TABLET PO SCH (08:46)
[2021-07-04] MEDS: Lactobacillus 1 EACH CAP.SPRINK PO SCH (08:46)
[2021-07-04] MEDS: Amoxicillin/Clavulanate 500 MG TABLET PO SCH (08:46)
[2021-07-04] MEDS: Aspirin Enteric Coated 81 MG Tablet PO SCH (08:46)
[2021-07-04] MEDS: Folic Acid 1 MG TABLET PO SCH (08:46)
[2021-07-04] MEDS: ARIPiprazole 10 MG TABLET PO SCH (08:46)
[2021-07-04] MEDS: Furosemide 20 MG TABLET PO SCH (08:46)
[2021-07-04 13:11] VITALS: TEMP 97.9
[2021-07-04 16:15] VITALS: BP 125/74; PULSE 99; O2SAT 98
== END 2021-07-04 17:23 | disposition home or self-care (01) | DRG 720 ==
LOC: EMEROOARM 18:30 → 3ANU 18:30 → SUATTDRO 23:32 → 3ANU 06-30 00:32 → SUATTDRO 06-30 13:51
PROVIDERS: ADMIT Internal Medicine; ATTEND Internal Medicine

== ENCOUNTER 2021-10-02 15:16 | Inpatient (IN) ==
[2021-10-02] MEDS ORDERED: Naloxone 0.4 MG/ML INJ IVP PRN (20:21)
[2021-10-02] MEDS ORDERED: Ondansetron 4 MG/2 ML VIAL IVP PRN (20:21)
[2021-10-02] MEDS ORDERED: Ipratropium/Albuterol Neb 3 ML IH PRN (20:29)
[2021-10-02] MEDS ORDERED: *HR* Heparin 5,000 UNIT/ML VIAL IVP PRN (20:31)
[2021-10-02 20:53] LABS: ABG Base Excess 9 mEq/L (-2 to 3); ABG HCO3 40 mEq/L (21-27); ABG Oxygen Saturation 94 % (95-98); ABG PCO2 91 mmHg (35-45); ABG PH 7.25 pH Units (7.32-7.45); ABG PO2 85 mmHg (85-104); ABG TCO2 43 mEq/L (20-26)
[2021-10-02] MEDS ORDERED: Furosemide 20 MG/2 ML VIAL IVP ONE (21:02)
[2021-10-02] MEDS ORDERED: Perflutren Lipid Microsphere 1.3 ML in 0.9 % Sodium Chloride 8.7 ML IVP PRN (21:32)
[2021-10-02] MEDS ORDERED: D5% in Water 1,000 ML IVC PRN (21:40)
[2021-10-02] MEDS ORDERED: *HR* Dextrose 50 % in Water (Syg) 50 ML SYRINGE IVP PRN (21:40)
[2021-10-02] MEDS ORDERED: Dextrose Gel 15 GM/37.5 ML TUBE PO PRN ×2 (21:40)
[2021-10-02 21:49] LABS: Hematocrit 37.5 % (35.3-44.9); Hemoglobin 12.7 g/dL (11.5-15.4); Mean Corpuscular HGB Conc 33.9 g/dL (31.6-35.5); Mean Corpuscular Volume 88.7 fL (83.0-100.0); Platelet Count 174 K/mcL (140-400); Red Blood Count 4.23 M/mcL (3.82-4.97); Red Cell Distribution Width 12.8 % (11.5-14.5); White Blood Count 18.2 K/mcL (4.3-11.1)
[2021-10-02 22:18] LABS: Potassium,Urine 20.5 mEq/L; Sodium, Urine 14.9 mEq/L
[2021-10-02 22:45] LABS: Bacteria,Urine Few per hpf (None-Few); Bilirubin,Urine Negative (Negative); Blood,Urine Negative (Negative); Clarity,Urine Clear (Clear); Color,Urine Yellow (Yellow); Glucose,Urine (UA) 70 mg/dL (Normal); Ketones,Urine Trace mg/dL (Negative); Leukocyte Esterase,Urine Negative (Negative); Mucus,Urine Few per lpf (None-Few); Nitrite,Urine Negative (Negative); Protein,Urine 100 mg/dL (Neg-Trace); RBC,Urine 0-3 per hpf (0-3); Specific Gravity,Urine 1.021 (1.010-1.025); Urobilinogen,Urine Normal (Normal)
[2021-10-02 23:06] LABS: Adenovirus Not Detected (Not Detect); Bordetella Pertussis Not Detected (Not Detect); Chlamydophila pneumoniae Not Detected (Not Detect); Coronavirus 229E Not Detected (Not Detect); Coronavirus HKU1 Not Detected (Not Detect); Coronavirus NL63 Not Detected (Not Detect); Coronavirus OC43 Not Detected (Not Detect); Human Metapneumovirus Not Detected (Not Detect); Human Rhinovirus/Enterovirus Not Detected (Not Detect); Influenza A Subtype 2009 H1 Not Detected (Not Detect); Influenza B Not Detected (Not Detect); Parainfluenza Virus 1 Not Detected (Not Detect); Parainfluenza Virus 2 Not Detected (Not Detect); Parainfluenza Virus 3 Not Detected (Not Detect); Parainfluenza Virus 4 Not Detected (Not Detect); Respiratory Syncytial Virus Not Detected (Not Detect); SARS-CoV-2 Not Detected (Not Detect)
[2021-10-02 23:07] LABS: Mycoplasma pneumoniae Not Detected (Not Detect)
[2021-10-02] MEDS: Insulin LISPRO 300 UNITS/3 ML VIAL SUBQ SCH (23:13)
[2021-10-02] MEDS: Nystatin Ointment 15 GM TUBE TP SCH (23:20)
[2021-10-02 23:35] LABS: BUN/Creatinine Ratio 6 (6-26); Blood Urea Nitrogen 4 mg/dL (8-23); Calcium 8.4 mg/dL (8.6-10.3); Carbon Dioxide 38 mEq/L (23-29); Chloride 79 mEq/L (98-107); Glucose 177 mg/dL (70-105); Osmolality,Calculated 253 (280-300); Potassium 3.6 mEq/L (3.5-5.1); Sodium 121 mEq/L (136-145); eGFR For African Americans > 60 (> 60); eGFR For Non-African Americans > 60 (> 60)
[2021-10-02 23:36] LABS: Heparin anti-factor XA UFH 0.37 IU/mL (0.30-0.70); INR 1.2; Prothrombin Time 13.6 Seconds (9.4-12.1)
[2021-10-03 03:53] LABS: Basophils % 0.3 %; Hematocrit 34.6 % (35.3-44.9); Hemoglobin 11.3 g/dL (11.5-15.4); Immature Granulocytes % 0.9 % (0-4); Lymphocytes # 0.6 K/mcL (0.6-4.6); Lymphocytes % 3.6 %; Mean Corpuscular HGB Conc 32.7 g/dL (31.6-35.5); Mean Corpuscular Hemoglobin 30.1 pg (28.0-33.3); Mean Platelet Volume 9.6 fL (9.4-12.4); Monocytes # 0.8 K/mcL (0.0-1.3); Monocytes % 5.4 %; Neutrophils # 14.1 K/mcL (1.6-8.9); Platelet Count 182 K/mcL (140-400); Red Blood Count 3.76 M/mcL (3.82-4.97); Red Cell Distribution Width 12.9 % (11.5-14.5); Segmented Neutrophils % 89.8 %; White Blood Count 15.7 K/mcL (4.3-11.1)
[2021-10-03 04:11] LABS: BUN/Creatinine Ratio 7 (6-26); Blood Urea Nitrogen 5 mg/dL (8-23); Calcium 8.5 mg/dL (8.6-10.3); Carbon Dioxide 43 mEq/L (23-29); Chloride 80 mEq/L (98-107); Glucose 137 mg/dL (70-105); Magnesium 1.4 mg/dL (1.6-2.6); Osmolality,Calculated 261 (280-300); Phosphorous 1.9 mg/dL (2.7-4.5); Potassium 3.8 mEq/L (3.5-5.1); Sodium 126 mEq/L (136-145); eGFR For African Americans > 60 (> 60); eGFR For Non-African Americans > 60 (> 60)
[2021-10-03 04:25] LABS: Thyroid Stimulating Hormone 0.164 mcIU/mL (0.340-5.600)
[2021-10-03 04:54] LABS: ABG Base Excess 11 mEq/L (-2 to 3); ABG HCO3 40 mEq/L (21-27); ABG Oxygen Saturation 92 % (95-98); ABG PCO2 71 mmHg (35-45); ABG PH 7.36 pH Units (7.32-7.45); ABG PO2 71 mmHg (85-104); ABG TCO2 42 mEq/L (20-26); Blood Gas Modality AVAPS
[2021-10-03 05:57] LABS: Alanine Aminotransferase 13 Units/L (7-52); Albumin 2.9 g/dL (3.5-5.7); Alkaline Phosphatase 120 Units/L (34-104); Aspartate Amino Transferase 20 Units/L (13-39); Bilirubin,Direct 0.2 mg/dL (0.0-0.2); Bilirubin,Indirect 0.2 mg/dL (0.0-1.0); Bilirubin,Total 0.4 mg/dL (0.3-1.0); Globulin 2.9 g/dL (2.4-3.5); Total Protein 5.8 g/dL (6.4-8.9)
[2021-10-03 06:05] LABS: Estimated Average Glucose 114 mg/dl; Hemoglobin A1C 5.6 %
[2021-10-03 06:22] LABS: Heparin anti-factor XA UFH 0.45 IU/mL (0.30-0.70)
[2021-10-03 06:23] LABS: INR 1.1; Prothrombin Time 11.9 Seconds (9.4-12.1)
[2021-10-03] MEDS ORDERED: Magnesium Sulfate 1 GM/102 ML PIGGYBACK IVPB ONE (06:52)
[2021-10-03] MEDS ORDERED: Potassium Phosphate 44 MEQ in 0.9 % Sodium Chloride 250 ML IVPB ONE (06:52)
[2021-10-03] MEDS: Azithromycin 500 MG in 0.9 % Sodium Chloride 250 ML IVPB SCH (07:41)
[2021-10-03] MEDS: Furosemide 20 MG/2 ML VIAL IVP SCH (07:41)
[2021-10-03] MEDS: Insulin LISPRO 300 UNITS/3 ML VIAL SUBQ SCH ×3 (07:42→17:10)
[2021-10-03] MEDS: Nystatin Ointment 15 GM TUBE TP SCH ×3 (07:42→17:12)
[2021-10-03] MEDS: cefTRIAXone 1,000 MG in 0.9 % Sodium Chloride Mini Bag 100 ML IVPB SCH (07:42)
[2021-10-03] MEDS ORDERED: *HR* Metoprolol 5 MG/5 ML VIAL IVP ONE (08:47)
[2021-10-03 10:19] LABS: BUN/Creatinine Ratio 10 (6-26); Blood Urea Nitrogen 6 mg/dL (8-23); Calcium 8.3 mg/dL (8.6-10.3); Carbon Dioxide 42 mEq/L (23-29); Chloride 79 mEq/L (98-107); Glucose 126 mg/dL (70-105); Osmolality,Calculated 263 (280-300); Potassium 4.5 mEq/L (3.5-5.1); Sodium 127 mEq/L (136-145); eGFR For African Americans > 60 (> 60); eGFR For Non-African Americans > 60 (> 60)
[2021-10-03] MEDS: Heparin 25,000 UNIT/250 ML 25,000 UNIT/250 ML IV.SOLN IVC SCH ×2 (11:41→19:13)
[2021-10-03] MEDS: predniSONE 20 MG TABLET PO SCH (11:44)
[2021-10-03] MEDS: Levalbuterol Neb 0.63 MG/3 ML IH SCH ×3 (12:15→20:23)
[2021-10-03] MEDS ORDERED: Haloperidol Lactate 5 MG/ML VIAL IVP ONE ×2 (14:44→18:23)
[2021-10-03] MEDS ORDERED: Furosemide 20 MG/2 ML VIAL IVP ONE (16:55)
[2021-10-03] MEDS: Dexmedetomidine HCl 400 MCG/100 ML MLS IVC SCH (17:12)
[2021-10-04] MEDS: Furosemide 20 MG/2 ML VIAL IVP SCH ×3 (00:03→20:42)
[2021-10-04] MEDS: Heparin 25,000 UNIT/250 ML 25,000 UNIT/250 ML IV.SOLN IVC SCH ×2 (00:03→12:43)
[2021-10-04] MEDS: Nystatin Ointment 15 GM TUBE TP SCH ×5 (00:04→20:42)
[2021-10-04] MEDS: Levalbuterol Neb 0.63 MG/3 ML IH SCH ×4 (04:01→20:00)
[2021-10-04] MEDS ORDERED: Albumin 25% 25gram/100mL 25 GM/100 ML IV.SOLN IVPB ONE (06:21)
[2021-10-04 07:49] LABS: Hematocrit 34.9 % (35.3-44.9); Hemoglobin 11.3 g/dL (11.5-15.4); Mean Corpuscular HGB Conc 32.4 g/dL (31.6-35.5); Mean Corpuscular Hemoglobin 30.1 pg (28.0-33.3); Mean Corpuscular Volume 92.8 fL (83.0-100.0); Mean Platelet Volume 9.8 fL (9.4-12.4); Platelet Count 214 K/mcL (140-400); Red Blood Count 3.76 M/mcL (3.82-4.97); Red Cell Distribution Width 13.3 % (11.5-14.5); White Blood Count 17.1 K/mcL (4.3-11.1)
[2021-10-04 07:58] LABS: BUN/Creatinine Ratio 15 (6-26); Blood Urea Nitrogen 10 mg/dL (8-23); Carbon Dioxide 43 mEq/L (23-29); Chloride 78 mEq/L (98-107); Glucose 104 mg/dL (70-105); Magnesium 1.8 mg/dL (1.6-2.6); Osmolality,Calculated 271 (280-300); Phosphorous 1.3 mg/dL (2.7-4.5); Potassium 3.9 mEq/L (3.5-5.1); Sodium 131 mEq/L (136-145); eGFR For African Americans > 60 (> 60); eGFR For Non-African Americans > 60 (> 60)
[2021-10-04 08:15] LABS: ABG Base Excess 13 mEq/L (-2 to 3); ABG HCO3 40 mEq/L (21-27); ABG Oxygen Saturation 95 % (95-98); ABG PCO2 64 mmHg (35-45); ABG PH 7.41 pH Units (7.32-7.45); ABG PO2 80 mmHg (85-104); ABG TCO2 42 mEq/L (20-26); Blood Gas Pressure Support 15 cm H2O
[2021-10-04] MEDS: Insulin LISPRO 300 UNITS/3 ML VIAL SUBQ SCH ×3 (08:29→18:09)
[2021-10-04] MEDS: ARIPiprazole 10 MG TABLET PO SCH (08:55)
[2021-10-04] MEDS: Metoprolol XL (24 HR) Succ 25 MG TAB.ER.24H PO SCH (08:55)
[2021-10-04] MEDS: predniSONE 20 MG TABLET PO SCH (08:56)
[2021-10-04] MEDS: *HR* Metoprolol 5 MG/5 ML VIAL IVP PRN (08:56)
[2021-10-04] MEDS: Aspirin Enteric Coated 81 MG Tablet PO SCH (08:56)
[2021-10-04] MEDS: *HR* Heparin 5,000 UNIT/ML VIAL IVP PRN ×2 (08:57→19:33)
[2021-10-04] MEDS: cefTRIAXone 1,000 MG in 0.9 % Sodium Chloride Mini Bag 100 ML IVPB SCH (08:58)
[2021-10-04] MEDS: Azithromycin 500 MG in 0.9 % Sodium Chloride 250 ML IVPB SCH (09:16)
[2021-10-04] MEDS: Budesonide/Formoterol 160/4.5 1 PUFF INH IH SCH ×2 (10:08→20:00)
[2021-10-04] MEDS: DilTIAZem CD (24hr) 120 MG CAP.ER.24H PO SCH (12:34)
[2021-10-04] MEDS: Nystatin SUSP 5 ML UD.LIQ PO SCH ×3 (12:35→23:21)
[2021-10-04] MEDS: Mirtazapine 15 MG TABLET PO SCH (20:41)
[2021-10-04] MEDS: Dexmedetomidine HCl 400 MCG/100 ML MLS IVC SCH (20:51)
[2021-10-05 03:08] LABS: Hematocrit 32.7 % (35.3-44.9); Hemoglobin 10.6 g/dL (11.5-15.4); Mean Corpuscular HGB Conc 32.4 g/dL (31.6-35.5); Mean Corpuscular Hemoglobin 30.1 pg (28.0-33.3); Mean Corpuscular Volume 92.9 fL (83.0-100.0); Platelet Count 146 K/mcL (140-400); Red Blood Count 3.52 M/mcL (3.82-4.97); Red Cell Distribution Width 13.5 % (11.5-14.5); White Blood Count 13.7 K/mcL (4.3-11.1)
[2021-10-05] MEDS: Levalbuterol Neb 0.63 MG/3 ML IH SCH ×4 (03:08→19:56)
[2021-10-05 03:32] LABS: BUN/Creatinine Ratio 29 (6-26); Blood Urea Nitrogen 19 mg/dL (8-23); Calcium 8.9 mg/dL (8.6-10.3); Carbon Dioxide 44 mEq/L (23-29); Chloride 83 mEq/L (98-107); Glucose 120 mg/dL (70-105); Osmolality,Calculated 277 (280-300); Potassium 4.3 mEq/L (3.5-5.1); Sodium 132 mEq/L (136-145); eGFR For African Americans > 60 (> 60); eGFR For Non-African Americans > 60 (> 60)
[2021-10-05 04:06] LABS: Lymphocytes # 1.1 K/mcL (0.6-4.6); Monocytes # 0.3 K/mcL (0.0-1.3); Neutrophils # 12.3 K/mcL (1.6-8.9); Platelet Estimate Normal (Normal)
[2021-10-05 04:07] LABS: Toxic Granulation Present (Not Present)
[2021-10-05 05:06] LABS: Magnesium 1.9 mg/dL (1.6-2.6); Phosphorous 2.8 mg/dL (2.7-4.5)
[2021-10-05 05:48] LABS: ABG Base Excess > 30 mEq/L (-2 to 3); ABG HCO3 68 mEq/L (21-27); ABG Oxygen Saturation 95 % (95-98); ABG PCO2 106 mmHg (35-45); ABG PH 7.42 pH Units (7.32-7.45); ABG PO2 85 mmHg (85-104); ABG TCO2 > 50 mEq/L (20-26); Blood Gas Modality avaps; Blood Gas VT 500 cc
[2021-10-05] MEDS: Insulin LISPRO 300 UNITS/3 ML VIAL SUBQ SCH ×3 (08:02→18:25)
[2021-10-05] MEDS: Heparin 25,000 UNIT/250 ML 25,000 UNIT/250 ML IV.SOLN IVC SCH (08:36)
[2021-10-05] MEDS: Budesonide/Formoterol 160/4.5 1 PUFF INH IH SCH ×2 (08:55→19:56)
[2021-10-05] MEDS ORDERED: cefTRIAXone 2,000 MG in 0.9 % Sodium Chloride Mini Bag 100 ML IVPB SCH (09:00)
[2021-10-05] MEDS: DilTIAZem CD (24hr) 120 MG CAP.ER.24H PO SCH (10:17)
[2021-10-05] MEDS: ARIPiprazole 10 MG TABLET PO SCH (10:17)
[2021-10-05] MEDS: Nystatin SUSP 5 ML UD.LIQ PO SCH ×4 (10:17→20:05)
[2021-10-05] MEDS: Aspirin Enteric Coated 81 MG Tablet PO SCH (10:17)
[2021-10-05] MEDS: Metoprolol XL (24 HR) Succ 25 MG TAB.ER.24H PO SCH (10:17)
[2021-10-05] MEDS: Furosemide 20 MG/2 ML VIAL IVP SCH (10:17)
[2021-10-05] MEDS: levoFLOXacin 750 MG/150 ML 750 MG/150 ML BAG IVPB SCH (12:05)
[2021-10-05] MEDS: MethylPREDNISolone 40 MG/ML VIAL IVP SCH ×2 (12:05→23:11)
[2021-10-05] MEDS: Acetaminophen 325 MG TABLET PO PRN (12:38)
[2021-10-05] MEDS: Nystatin Ointment 15 GM TUBE TP SCH ×4 (12:41→20:06)
[2021-10-05] MEDS: *HR* Heparin 5,000 UNIT/ML VIAL IVP PRN (13:36)
[2021-10-05] MEDS: Dexmedetomidine HCl 400 MCG/100 ML MLS IVC SCH (18:26)
[2021-10-05] MEDS ORDERED: acetaZOLAMIDE 500 MG in Water for inj. (sterile) 5 ML IVP ONE (19:08)
[2021-10-05] MEDS: Acetylcysteine 10% 2 ML INHSOL IH SCH (19:56)
[2021-10-05] MEDS: Mirtazapine 15 MG TABLET PO SCH (20:05)
[2021-10-06] MEDS: Levalbuterol Neb 0.63 MG/3 ML IH SCH ×4 (03:11→20:48)
[2021-10-06 05:14] LABS: Hematocrit 31.7 % (35.3-44.9); Mean Corpuscular HGB Conc 31.5 g/dL (31.6-35.5); Mean Corpuscular Hemoglobin 29.9 pg (28.0-33.3); Mean Corpuscular Volume 94.6 fL (83.0-100.0); Mean Platelet Volume 9.6 fL (9.4-12.4); Platelet Count 168 K/mcL (140-400); Red Blood Count 3.35 M/mcL (3.82-4.97); Red Cell Distribution Width 13.2 % (11.5-14.5); White Blood Count 12.2 K/mcL (4.3-11.1)
[2021-10-06 05:20] LABS: BUN/Creatinine Ratio 28 (6-26); Blood Urea Nitrogen 17 mg/dL (8-23); Carbon Dioxide 44 mEq/L (23-29); Chloride 81 mEq/L (98-107); Glucose 151 mg/dL (70-105); Magnesium 1.7 mg/dL (1.6-2.6); Osmolality,Calculated 278 (280-300); Phosphorous 2.3 mg/dL (2.7-4.5); Potassium 3.3 mEq/L (3.5-5.1); Sodium 132 mEq/L (136-145); eGFR For African Americans > 60 (> 60); eGFR For Non-African Americans > 60 (> 60)
[2021-10-06] MEDS: Heparin 25,000 UNIT/250 ML 25,000 UNIT/250 ML IV.SOLN IVC SCH (05:41)
[2021-10-06 06:25] LABS: Lymphocytes # 2.1 K/mcL (0.6-4.6); Monocytes # 0.2 K/mcL (0.0-1.3); Neutrophils # 9.9 K/mcL (1.6-8.9); Platelet Estimate Normal (Normal)
[2021-10-06] MEDS: predniSONE 20 MG TABLET PO SCH (07:26)
[2021-10-06] MEDS: Azithromycin 500 MG in 0.9 % Sodium Chloride 250 ML IVPB SCH (07:26)
[2021-10-06] MEDS: MethylPREDNISolone 40 MG/ML VIAL IVP SCH ×2 (07:27→12:07)
[2021-10-06] MEDS: Acetylcysteine 10% 2 ML INHSOL IH SCH ×2 (07:44→17:02)
[2021-10-06] MEDS: Budesonide/Formoterol 160/4.5 1 PUFF INH IH SCH ×2 (07:45→20:48)
[2021-10-06] MEDS ORDERED: Furosemide 20 MG/2 ML VIAL IVP SCH (09:00)
[2021-10-06] MEDS: DilTIAZem CD (24hr) 120 MG CAP.ER.24H PO SCH (09:26)
[2021-10-06] MEDS: Aspirin Enteric Coated 81 MG Tablet PO SCH (09:26)
[2021-10-06] MEDS: Insulin LISPRO 300 UNITS/3 ML VIAL SUBQ SCH ×3 (09:26→16:59)
[2021-10-06] MEDS: ARIPiprazole 10 MG TABLET PO SCH (09:26)
[2021-10-06] MEDS: Metoprolol XL (24 HR) Succ 25 MG TAB.ER.24H PO SCH (09:26)
[2021-10-06] MEDS: Apixaban 5 MG TABLET PO SCH ×2 (09:26→17:23)
[2021-10-06] MEDS: Nystatin Ointment 15 GM TUBE TP SCH ×4 (09:27→19:46)
[2021-10-06] MEDS: Nystatin SUSP 5 ML UD.LIQ PO SCH ×4 (09:27→19:46)
[2021-10-06] MEDS: levoFLOXacin 750 MG/150 ML 750 MG/150 ML BAG IVPB SCH (09:27)
[2021-10-06] MEDS ORDERED: Potassium Chloride Elixir 20 MEQ/15 ML UDC PO ONE (11:33)
[2021-10-06] MEDS: Acetaminophen 325 MG TABLET PO PRN (19:46)
[2021-10-06] MEDS: Mirtazapine 15 MG TABLET PO SCH (19:46)
[2021-10-07] MEDS: MethylPREDNISolone 40 MG/ML VIAL IVP SCH ×2 (01:04→12:51)
[2021-10-07] MEDS: Levalbuterol Neb 0.63 MG/3 ML IH SCH ×4 (03:33→19:25)
[2021-10-07 07:56] LABS: Hematocrit 27.8 % (35.3-44.9); Hemoglobin 9.5 g/dL (11.5-15.4); Mean Corpuscular HGB Conc 34.2 g/dL (31.6-35.5); Mean Corpuscular Hemoglobin 30.5 pg (28.0-33.3); Mean Corpuscular Volume 89.4 fL (83.0-100.0); Mean Platelet Volume 9.4 fL (9.4-12.4); Platelet Count 170 K/mcL (140-400); Red Blood Count 3.11 M/mcL (3.82-4.97); Red Cell Distribution Width 13.1 % (11.5-14.5); White Blood Count 14.3 K/mcL (4.3-11.1)
[2021-10-07 08:14] LABS: BUN/Creatinine Ratio 34 (6-26); Blood Urea Nitrogen 24 mg/dL (8-23); Calcium 8.8 mg/dL (8.6-10.3); Carbon Dioxide 41 mEq/L (23-29); Chloride 78 mEq/L (98-107); Glucose 161 mg/dL (70-105); Magnesium 1.7 mg/dL (1.6-2.6); Osmolality,Calculated 266 (280-300); Phosphorous 2.1 mg/dL (2.7-4.5); Potassium 3.6 mEq/L (3.5-5.1); Sodium 124 mEq/L (136-145); eGFR For African Americans > 60 (> 60); eGFR For Non-African Americans > 60 (> 60)
[2021-10-07 08:44] LABS: Anisocytosis 1+ (Not Present); Lymphocytes # 1.4 K/mcL (0.6-4.6); Monocytes # 1.4 K/mcL (0.0-1.3); Neutrophils # 11.4 K/mcL (1.6-8.9); Platelet Estimate Normal (Normal)
[2021-10-07] MEDS: Insulin LISPRO 300 UNITS/3 ML VIAL SUBQ SCH ×3 (09:50→16:48)
[2021-10-07] MEDS: ARIPiprazole 10 MG TABLET PO SCH (09:51)
[2021-10-07] MEDS: Aspirin Enteric Coated 81 MG Tablet PO SCH (09:51)
[2021-10-07] MEDS: Nystatin SUSP 5 ML UD.LIQ PO SCH ×4 (09:52→20:46)
[2021-10-07] MEDS: DilTIAZem CD (24hr) 120 MG CAP.ER.24H PO SCH (09:56)
[2021-10-07] MEDS: Nystatin Ointment 15 GM TUBE TP SCH ×4 (09:56→20:48)
[2021-10-07] MEDS: levoFLOXacin 750 MG/150 ML 750 MG/150 ML BAG IVPB SCH (09:59)
[2021-10-07] MEDS ORDERED: *HR* Midazolam HCl 5 MG/5 ML VIAL IVP ONE (10:32)
[2021-10-07] MEDS ORDERED: *HR* FentaNYL (PF) 100 MCG/2 ML VIAL ONE (10:32)
[2021-10-07] MEDS ORDERED: *HR* FentaNYL (PF) 100 MCG/2 ML VIAL IVP ONE (11:10)
[2021-10-07] MEDS: Budesonide/Formoterol 160/4.5 1 PUFF INH IH SCH ×2 (11:15→19:25)
[2021-10-07] MEDS ORDERED: Acetylcysteine 10% 2 ML INHSOL IH ONE (11:21)
[2021-10-07] MEDS: Ringers Solution, Lactated 1,000 ML IVC SCH (11:45)
[2021-10-07] MEDS: Mirtazapine 15 MG TABLET PO SCH (20:47)
[2021-10-08] MEDS ORDERED: MethylPREDNISolone 40 MG/ML VIAL IVP SCH
[2021-10-08] MEDS: Levalbuterol Neb 0.63 MG/3 ML IH SCH ×4 (03:12→20:24)
[2021-10-08] MEDS: Ringers Solution, Lactated 1,000 ML IVC SCH (05:30)
[2021-10-08 06:17] LABS: Hematocrit 28.5 % (35.3-44.9); Hemoglobin 9.3 g/dL (11.5-15.4); Mean Corpuscular HGB Conc 32.6 g/dL (31.6-35.5); Mean Corpuscular Hemoglobin 29.3 pg (28.0-33.3); Mean Corpuscular Volume 89.9 fL (83.0-100.0); Mean Platelet Volume 9.3 fL (9.4-12.4); Nucleated Red Blood Cells 0.2 /100 WBC (0); Platelet Count 134 K/mcL (140-400); Red Blood Count 3.17 M/mcL (3.82-4.97); Red Cell Distribution Width 13.1 % (11.5-14.5); White Blood Count 13.3 K/mcL (4.3-11.1)
[2021-10-08 06:28] LABS: BUN/Creatinine Ratio 33 (6-26); Blood Urea Nitrogen 21 mg/dL (8-23); Calcium 8.1 mg/dL (8.6-10.3); Carbon Dioxide 40 mEq/L (23-29); Chloride 81 mEq/L (98-107); Glucose 170 mg/dL (70-105); Magnesium 1.7 mg/dL (1.6-2.6); Osmolality,Calculated 273 (280-300); Phosphorous 3.8 mg/dL (2.7-4.5); Potassium 3.6 mEq/L (3.5-5.1); Sodium 128 mEq/L (136-145); eGFR For African Americans > 60 (> 60); eGFR For Non-African Americans > 60 (> 60)
[2021-10-08] MEDS: Nystatin SUSP 5 ML UD.LIQ PO SCH ×4 (07:41→21:04)
[2021-10-08] MEDS: levoFLOXacin 750 MG/150 ML 750 MG/150 ML BAG IVPB SCH (07:41)
[2021-10-08] MEDS: Nystatin Ointment 15 GM TUBE TP SCH ×4 (07:41→21:05)
[2021-10-08] MEDS: Aspirin Enteric Coated 81 MG Tablet PO SCH (07:42)
[2021-10-08] MEDS: ARIPiprazole 10 MG TABLET PO SCH (07:42)
[2021-10-08] MEDS: Insulin LISPRO 300 UNITS/3 ML VIAL SUBQ SCH ×3 (07:42→17:07)
[2021-10-08] MEDS: DilTIAZem CD (24hr) 120 MG CAP.ER.24H PO SCH (07:42)
[2021-10-08] MEDS: Budesonide/Formoterol 160/4.5 1 PUFF INH IH SCH ×2 (07:59→20:24)
[2021-10-08 08:23] LABS: Lymphocytes # 0.5 K/mcL (0.6-4.6); Neutrophils # 11.7 K/mcL (1.6-8.9); Platelet Estimate Slight Decrease (Normal)
[2021-10-08 08:24] LABS: Anisocytosis 1+ (Not Present); Hypochromasia Present (Not Present)
[2021-10-08] MEDS: Mirtazapine 15 MG TABLET PO SCH (21:05)
[2021-10-08] MEDS: Acetaminophen 325 MG TABLET PO PRN (21:05)
[2021-10-09] MEDS: Levalbuterol Neb 0.63 MG/3 ML IH SCH ×4 (04:10→21:56)
[2021-10-09 06:55] LABS: Hemoglobin 10.3 g/dL (11.5-15.4); Nucleated Red Blood Cells 0.2 /100 WBC (0); Red Cell Distribution Width 13.5 % (11.5-14.5)
[2021-10-09 06:57] LABS: Hematocrit 30.3 % (35.3-44.9); Mean Corpuscular Hemoglobin 30.5 pg (28.0-33.3); Mean Corpuscular Volume 89.6 fL (83.0-100.0); Mean Platelet Volume 9.4 fL (9.4-12.4); Platelet Count 139 K/mcL (140-400); Red Blood Count 3.38 M/mcL (3.82-4.97)
[2021-10-09 07:22] LABS: BUN/Creatinine Ratio 33 (6-26); Blood Urea Nitrogen 23 mg/dL (8-23); Calcium 8.6 mg/dL (8.6-10.3); Carbon Dioxide 43 mEq/L (23-29); Chloride 80 mEq/L (98-107); Glucose 116 mg/dL (70-105); Magnesium 1.7 mg/dL (1.6-2.6); Osmolality,Calculated 271 (280-300); Phosphorous 2.6 mg/dL (2.7-4.5); Potassium 3.4 mEq/L (3.5-5.1); Sodium 128 mEq/L (136-145); eGFR For African Americans > 60 (> 60); eGFR For Non-African Americans > 60 (> 60)
[2021-10-09] MEDS: Insulin LISPRO 300 UNITS/3 ML VIAL SUBQ SCH ×3 (07:37→16:45)
[2021-10-09 08:00] LABS: Lymphocytes # 5.2 K/mcL (0.6-4.6); Neutrophils # 19.2 K/mcL (1.6-8.9); Platelet Estimate Slight Decrease (Normal)
[2021-10-09] MEDS: levoFLOXacin 750 MG/150 ML 750 MG/150 ML BAG IVPB SCH (08:46)
[2021-10-09] MEDS: Aspirin Enteric Coated 81 MG Tablet PO SCH (08:46)
[2021-10-09] MEDS: ARIPiprazole 10 MG TABLET PO SCH (08:46)
[2021-10-09] MEDS: DilTIAZem CD (24hr) 120 MG CAP.ER.24H PO SCH (08:46)
[2021-10-09] MEDS: Nystatin SUSP 5 ML UD.LIQ PO SCH ×4 (08:46→21:28)
[2021-10-09] MEDS: Nystatin Ointment 15 GM TUBE TP SCH ×4 (08:47→21:28)
[2021-10-09] MEDS: Budesonide/Formoterol 160/4.5 1 PUFF INH IH SCH ×2 (10:26→21:56)
[2021-10-09] MEDS: Furosemide 20 MG TABLET PO SCH (11:00)
[2021-10-09] MEDS: predniSONE 20 MG TABLET PO SCH (11:47)
[2021-10-09] MEDS: *HR* Heparin 5,000 UNIT/ML VIAL SQ SCH (17:35)
[2021-10-09] MEDS: Mirtazapine 15 MG TABLET PO SCH (21:28)
[2021-10-10] MEDS: Levalbuterol Neb 0.63 MG/3 ML IH SCH ×4 (05:06→19:43)
[2021-10-10 05:21] LABS: Basophils # 0.2 K/mcL (0.0-0.2); Basophils % 0.8 %; Hematocrit 28.4 % (35.3-44.9); Hemoglobin 9.3 g/dL (11.5-15.4); Immature Granulocytes % 8.9 % (0-4); Lymphocytes # 2.4 K/mcL (0.6-4.6); Lymphocytes % 12.1 %; Mean Corpuscular HGB Conc 32.7 g/dL (31.6-35.5); Mean Corpuscular Volume 88.5 fL (83.0-100.0); Mean Platelet Volume 9.5 fL (9.4-12.4); Monocytes # 0.8 K/mcL (0.0-1.3); Monocytes % 4.1 %; Neutrophils # 14.4 K/mcL (1.6-8.9); Nucleated Red Blood Cells 0.1 /100 WBC (0); Platelet Count 119 K/mcL (140-400); Red Blood Count 3.21 M/mcL (3.82-4.97); Red Cell Distribution Width 13.3 % (11.5-14.5); Segmented Neutrophils % 74.1 %; White Blood Count 19.4 K/mcL (4.3-11.1)
[2021-10-10 05:40] LABS: BUN/Creatinine Ratio 36 (6-26); Blood Urea Nitrogen 20 mg/dL (8-23); Calcium 8.2 mg/dL (8.6-10.3); Carbon Dioxide 41 mEq/L (23-29); Chloride 77 mEq/L (98-107); Glucose 121 mg/dL (70-105); Magnesium 1.5 mg/dL (1.6-2.6); Osmolality,Calculated 260 (280-300); Phosphorous 2.7 mg/dL (2.7-4.5); Potassium 3.6 mEq/L (3.5-5.1); Sodium 123 mEq/L (136-145); eGFR For African Americans > 60 (> 60); eGFR For Non-African Americans > 60 (> 60)
[2021-10-10 05:51] LABS: Platelet Estimate Normal (Normal)
[2021-10-10] MEDS: *HR* Heparin 5,000 UNIT/ML VIAL SQ SCH ×2 (06:02→17:57)
[2021-10-10] MEDS: Insulin LISPRO 300 UNITS/3 ML VIAL SUBQ SCH ×3 (07:29→15:42)
[2021-10-10] MEDS ORDERED: Isovue-370 500 ML BOTTLE IVP ONE ×2 (09:00→10:44)
[2021-10-10] MEDS: Budesonide/Formoterol 160/4.5 1 PUFF INH IH SCH ×2 (09:00→19:43)
[2021-10-10 09:49] LABS: ABG Base Excess 16 mEq/L (-2 to 3); ABG HCO3 41 mEq/L (21-27); ABG Oxygen Saturation 88 % (95-98); ABG PCO2 55 mmHg (35-45); ABG PH 7.49 pH Units (7.32-7.45); ABG PO2 53 mmHg (85-104); ABG TCO2 43 mEq/L (20-26); Blood Gas VT 16 cc
[2021-10-10] MEDS: levoFLOXacin 750 MG/150 ML 750 MG/150 ML BAG IVPB SCH (10:15)
[2021-10-10] MEDS: ARIPiprazole 10 MG TABLET PO SCH (12:37)
[2021-10-10] MEDS: Aspirin Enteric Coated 81 MG Tablet PO SCH (12:37)
[2021-10-10] MEDS: predniSONE 20 MG TABLET PO SCH (12:37)
[2021-10-10] MEDS: Furosemide 20 MG TABLET PO SCH (12:37)
[2021-10-10] MEDS: Nystatin SUSP 5 ML UD.LIQ PO SCH ×4 (12:38→20:23)
[2021-10-10] MEDS: DilTIAZem CD (24hr) 120 MG CAP.ER.24H PO SCH (12:38)
[2021-10-10] MEDS: Nystatin Ointment 15 GM TUBE TP SCH ×4 (12:38→20:23)
[2021-10-10] MEDS: Mirtazapine 15 MG TABLET PO SCH (20:23)
[2021-10-11] MEDS: Levalbuterol Neb 0.63 MG/3 ML IH SCH ×4 (03:34→20:48)
[2021-10-11] MEDS: *HR* Heparin 5,000 UNIT/ML VIAL SQ SCH ×2 (05:12→17:08)
[2021-10-11 05:30] LABS: Hematocrit 26.5 % (35.3-44.9); Hemoglobin 9.2 g/dL (11.5-15.4); Mean Corpuscular HGB Conc 34.7 g/dL (31.6-35.5); Mean Corpuscular Hemoglobin 30.7 pg (28.0-33.3); Mean Corpuscular Volume 88.3 fL (83.0-100.0); Mean Platelet Volume 9.6 fL (9.4-12.4); Nucleated Red Blood Cells 0.2 /100 WBC (0); Platelet Count 125 K/mcL (140-400); Red Cell Distribution Width 13.5 % (11.5-14.5)
[2021-10-11 06:31] LABS: BUN/Creatinine Ratio 28 (6-26); Blood Urea Nitrogen 16 mg/dL (8-23); Carbon Dioxide 44 mEq/L (23-29); Chloride 77 mEq/L (98-107); Glucose 128 mg/dL (70-105); Magnesium 1.9 mg/dL (1.6-2.6); Osmolality,Calculated 263 (280-300); Phosphorous 2.5 mg/dL (2.7-4.5); Potassium 3.3 mEq/L (3.5-5.1); Sodium 125 mEq/L (136-145); eGFR For African Americans > 60 (> 60); eGFR For Non-African Americans > 60 (> 60)
[2021-10-11] MEDS: Insulin LISPRO 300 UNITS/3 ML VIAL SUBQ SCH ×3 (07:25→17:08)
[2021-10-11] MEDS: predniSONE 20 MG TABLET PO SCH (07:34)
[2021-10-11] MEDS: Nystatin SUSP 5 ML UD.LIQ PO SCH ×4 (07:34→20:11)
[2021-10-11] MEDS: ARIPiprazole 10 MG TABLET PO SCH (07:34)
[2021-10-11] MEDS: DilTIAZem CD (24hr) 120 MG CAP.ER.24H PO SCH (07:34)
[2021-10-11] MEDS: Aspirin Enteric Coated 81 MG Tablet PO SCH (07:34)
[2021-10-11] MEDS: Furosemide 40 MG/4 ML VIAL IVP SCH (07:35)
[2021-10-11] MEDS: Nystatin Ointment 15 GM TUBE TP SCH ×4 (07:36→20:11)
[2021-10-11] MEDS: levoFLOXacin 750 MG/150 ML 750 MG/150 ML BAG IVPB SCH (07:36)
[2021-10-11 08:47] LABS: Lymphocytes # 1.5 K/mcL (0.6-4.6); Monocytes # 0.8 K/mcL (0.0-1.3); Neutrophils # 16.7 K/mcL (1.6-8.9); Platelet Estimate Slight Decrease (Normal)
[2021-10-11] MEDS: Budesonide/Formoterol 160/4.5 1 PUFF INH IH SCH ×2 (09:23→20:48)
[2021-10-11] MEDS ORDERED: Potassium Phosphate 44 MEQ in 0.9 % Sodium Chloride 250 ML IVPB ONE (09:25)
[2021-10-11 15:57] LABS: Influenza A PCR Negative (Negative); Influenza B PCR Negative (Negative); Resp. Syncytial Virus PCR Negative (Negative)
[2021-10-11 16:06] LABS: SARS-CoV-2 by PCR (In House) Negative (Negative)
[2021-10-11] MEDS: Mirtazapine 15 MG TABLET PO SCH (20:11)
[2021-10-12] MEDS: Ipratropium Neb 0.5 MG NEBULIZER IH PRN (00:12)
[2021-10-12 00:19] LABS: ABG Base Excess 20 mEq/L (-2 to 3); ABG HCO3 46 mEq/L (21-27); ABG Oxygen Saturation 80 % (95-98); ABG PCO2 59 mmHg (35-45); ABG PO2 42 mmHg (85-104); ABG TCO2 48 mEq/L (20-26); Blood Gas Modality NIV; Blood Gas VT 400 cc
[2021-10-12 03:35] LABS: Mean Corpuscular HGB Conc 33.3 g/dL (31.6-35.5); Mean Corpuscular Hemoglobin 29.8 pg (28.0-33.3); Mean Corpuscular Volume 89.3 fL (83.0-100.0); Mean Platelet Volume 9.9 fL (9.4-12.4); Nucleated Red Blood Cells 0.1 /100 WBC (0); Platelet Count 177 K/mcL (140-400); Red Blood Count 3.36 M/mcL (3.82-4.97); Red Cell Distribution Width 13.9 % (11.5-14.5)
[2021-10-12 03:38] LABS: White Blood Count 46.8 K/mcL (4.3-11.1)
[2021-10-12 03:57] LABS: BUN/Creatinine Ratio 29 (6-26); Blood Urea Nitrogen 16 mg/dL (8-23); Calcium 8.4 mg/dL (8.6-10.3); Carbon Dioxide 42 mEq/L (23-29); Chloride 79 mEq/L (98-107); Glucose 152 mg/dL (70-105); Magnesium 1.7 mg/dL (1.6-2.6); Osmolality,Calculated 274 (280-300); Phosphorous 2.8 mg/dL (2.7-4.5); Potassium 3.3 mEq/L (3.5-5.1); Sodium 130 mEq/L (136-145); eGFR For African Americans > 60 (> 60); eGFR For Non-African Americans > 60 (> 60)
[2021-10-12] MEDS: *HR* Heparin 5,000 UNIT/ML VIAL SQ SCH ×2 (04:17→17:24)
[2021-10-12 04:23] LABS: Lymphocytes # 0.9 K/mcL (0.6-4.6); Monocytes # 0.9 K/mcL (0.0-1.3); Neutrophils # 44.9 K/mcL (1.6-8.9); Platelet Estimate Normal (Normal)
[2021-10-12] MEDS: Levalbuterol Neb 0.63 MG/3 ML IH SCH ×4 (04:32→20:22)
[2021-10-12 04:41] LABS: Bacteria,Urine Few per hpf (None-Few); Bilirubin,Urine Negative (Negative); Blood,Urine Large (Negative); Budding Yeast,Urine Moderate per hpf (None Seen); Clarity,Urine Turbid (Clear); Color,Urine Light-Orange (Yellow); Glucose,Urine (UA) Normal (Normal); Ketones,Urine 40 mg/dL (Negative); Leukocyte Esterase,Urine Small (Negative); Mucus,Urine Few per lpf (None-Few); Nitrite,Urine Negative (Negative); PH,Urine 6.5 pH Units (5.0-8.0); Protein,Urine 30 mg/dL (Neg-Trace); RBC,Urine TNTC per hpf (0-3); Specific Gravity,Urine 1.024 (1.010-1.025); WBC,Urine TNTC per hpf (0-3)
[2021-10-12] MEDS: ARIPiprazole 10 MG TABLET PO SCH (08:24)
[2021-10-12] MEDS: Furosemide 40 MG/4 ML VIAL IVP SCH (08:24)
[2021-10-12] MEDS: Insulin LISPRO 300 UNITS/3 ML VIAL SUBQ SCH ×3 (08:24→17:22)
[2021-10-12] MEDS: Aspirin Enteric Coated 81 MG Tablet PO SCH (08:24)
[2021-10-12] MEDS: levoFLOXacin 750 MG/150 ML 750 MG/150 ML BAG IVPB SCH (08:24)
[2021-10-12] MEDS: DilTIAZem CD (24hr) 120 MG CAP.ER.24H PO SCH (08:24)
[2021-10-12] MEDS: predniSONE 20 MG TABLET PO SCH (08:24)
[2021-10-12] MEDS: Nystatin SUSP 5 ML UD.LIQ PO SCH ×4 (08:24→20:17)
[2021-10-12] MEDS: Nystatin Ointment 15 GM TUBE TP SCH ×4 (08:25→20:17)
[2021-10-12] MEDS: *HR* Metoprolol 5 MG/5 ML VIAL IVP PRN (10:05)
[2021-10-12] MEDS: Cefepime HCl 1,000 MG in Water for inj. (sterile) 10 ML IVP SCH ×2 (10:05→16:04)
[2021-10-12] MEDS: Metoprolol XL (24 HR) Succ 25 MG TAB.ER.24H PO SCH (10:05)
[2021-10-12] MEDS: Budesonide/Formoterol 160/4.5 1 PUFF INH IH SCH ×2 (11:16→20:22)
[2021-10-12] MEDS ORDERED: Albumin 25% 25gram/100mL 25 GM/100 ML IV.SOLN IVPB ONE (12:27)
[2021-10-12] MEDS ORDERED: 0.9 % Sodium Chloride 250 ML IVC ONE (13:05)
[2021-10-12] MEDS ORDERED: Sennosides/Docusate Sodium TABLET PO PRN (13:25)
[2021-10-12] MEDS ORDERED: Bisacodyl 10 MG RECTAL SUPPOSITORY RC PRN (13:27)
[2021-10-12] MEDS ORDERED: 0.9 % Sodium Chloride 500 ML IVC ONE (14:05)
[2021-10-12] MEDS ORDERED: Lidocaine -MPF 1% 5 ML AMPUL INFILT ONE (15:21)
[2021-10-12] MEDS: Norepinephrine 4 MG/254 ML IV.SOLN IVC SCH ×2 (15:58→23:24)
[2021-10-12] MEDS: Sennosides/Docusate Sodium TABLET PO SCH (16:04)
[2021-10-12] MEDS ORDERED: metroNIDAZOLE 500 MG TABLET PO SCH (16:15)
[2021-10-12] MEDS: Mirtazapine 15 MG TABLET PO SCH (20:16)
[2021-10-12] MEDS: MetroNIDAZOLE 500 MG/100 ML 500 MG/100 ML BAG IVPB SCH (20:16)
[2021-10-13] MEDS: Cefepime HCl 1,000 MG in Water for inj. (sterile) 10 ML IVP SCH ×4 (00:08→23:03)
[2021-10-13] MEDS: Norepinephrine 4 MG/254 ML IV.SOLN IVC SCH ×5 (02:32→23:04)
[2021-10-13] MEDS: Levalbuterol Neb 0.63 MG/3 ML IH SCH ×4 (03:46→21:27)
[2021-10-13 04:30] LABS: Basophils % 0.2 %; Immature Granulocytes % 2.1 % (0-4); Nucleated Red Blood Cells 0.1 /100 WBC (0); Red Cell Distribution Width 14.3 % (11.5-14.5)
[2021-10-13 04:31] LABS: Basophils # 0.1 K/mcL (0.0-0.2); Hematocrit 23.1 % (35.3-44.9); Hemoglobin 7.9 g/dL (11.5-15.4); Lymphocytes # 1.1 K/mcL (0.6-4.6); Lymphocytes % 3.1 %; Mean Corpuscular HGB Conc 34.2 g/dL (31.6-35.5); Mean Corpuscular Hemoglobin 31.1 pg (28.0-33.3); Mean Corpuscular Volume 90.9 fL (83.0-100.0); Mean Platelet Volume 9.3 fL (9.4-12.4); Monocytes # 1.6 K/mcL (0.0-1.3); Monocytes % 4.6 %; Platelet Count 168 K/mcL (140-400); Red Blood Count 2.54 M/mcL (3.82-4.97)
[2021-10-13 04:34] LABS: Neutrophils # 31.3 K/mcL (1.6-8.9); White Blood Count 34.8 K/mcL (4.3-11.1)
[2021-10-13] MEDS: MetroNIDAZOLE 500 MG/100 ML 500 MG/100 ML BAG IVPB SCH ×3 (04:51→23:11)
[2021-10-13] MEDS: *HR* Heparin 5,000 UNIT/ML VIAL SQ SCH ×2 (04:51→16:59)
[2021-10-13 04:59] LABS: Alanine Aminotransferase 9 Units/L (7-52); Albumin 3.2 g/dL (3.5-5.7); Albumin/Globulin Ratio 1.6 (1.1-2.2); Alkaline Phosphatase 60 Units/L (34-104); Aspartate Amino Transferase 13 Units/L (13-39); BUN/Creatinine Ratio 41 (6-26); Bilirubin,Total 0.6 mg/dL (0.3-1.0); Blood Urea Nitrogen 19 mg/dL (8-23); Calcium 8.3 mg/dL (8.6-10.3); Carbon Dioxide 40 mEq/L (23-29); Chloride 88 mEq/L (98-107); Glucose 171 mg/dL (70-105); Osmolality,Calculated 282 (280-300); Potassium 3.5 mEq/L (3.5-5.1); Sodium 133 mEq/L (136-145); Total Protein 5.2 g/dL (6.4-8.9); eGFR For African Americans > 60 (> 60); eGFR For Non-African Americans > 60 (> 60)
[2021-10-13] MEDS: Furosemide 40 MG/4 ML VIAL IVP SCH (08:53)
[2021-10-13] MEDS: Metoprolol XL (24 HR) Succ 25 MG TAB.ER.24H PO SCH (08:59)
[2021-10-13] MEDS: predniSONE 20 MG TABLET PO SCH (09:00)
[2021-10-13] MEDS: Sennosides/Docusate Sodium TABLET PO SCH (09:00)
[2021-10-13] MEDS: Nystatin Ointment 15 GM TUBE TP SCH ×4 (09:01→20:37)
[2021-10-13] MEDS: ARIPiprazole 10 MG TABLET PO SCH (09:01)
[2021-10-13] MEDS: Aspirin Enteric Coated 81 MG Tablet PO SCH (09:01)
[2021-10-13] MEDS: Insulin LISPRO 300 UNITS/3 ML VIAL SUBQ SCH ×3 (09:02→16:59)
[2021-10-13] MEDS: Nystatin SUSP 5 ML UD.LIQ PO SCH ×4 (09:02→20:36)
[2021-10-13] MEDS: Budesonide/Formoterol 160/4.5 1 PUFF INH IH SCH ×2 (11:24→21:26)
[2021-10-13] MEDS ORDERED: 0.9 % Sodium Chloride 500 ML ONE (17:57)
[2021-10-13] MEDS: Mirtazapine 15 MG TABLET PO SCH (20:37)
[2021-10-14 00:25] LABS: ABG Base Excess 16 mEq/L (-2 to 3); ABG HCO3 46 mEq/L (21-27); ABG Oxygen Saturation 100 % (95-98); ABG PCO2 92 mmHg (35-45); ABG PH 7.31 pH Units (7.32-7.45); ABG PO2 217 mmHg (85-104); ABG TCO2 49 mEq/L (20-26); Blood Gas Modality BiLevel; Blood Gas VT 400 cc
[2021-10-14] MEDS: Ipratropium Neb 0.5 MG NEBULIZER IH PRN ×2 (03:44→20:24)
[2021-10-14] MEDS: Levalbuterol Neb 0.63 MG/3 ML IH SCH ×5 (03:44→20:24)
[2021-10-14] MEDS: MetroNIDAZOLE 500 MG/100 ML 500 MG/100 ML BAG IVPB SCH ×3 (04:55→20:31)
[2021-10-14] MEDS: *HR* Heparin 5,000 UNIT/ML VIAL SQ SCH ×2 (04:55→18:59)
[2021-10-14 05:02] LABS: Basophils % 0.1 %; Immature Granulocytes % 1.3 % (0-4); Mean Corpuscular Volume 94.3 fL (83.0-100.0); Nucleated Red Blood Cells 0.1 /100 WBC (0); Red Cell Distribution Width 14.5 % (11.5-14.5)
[2021-10-14 05:04] LABS: Hematocrit 24.8 % (35.3-44.9); Hemoglobin 7.7 g/dL (11.5-15.4); Lymphocytes # 0.9 K/mcL (0.6-4.6); Lymphocytes % 3.1 %; Mean Corpuscular Hemoglobin 29.3 pg (28.0-33.3); Mean Platelet Volume 9.5 fL (9.4-12.4); Monocytes # 1.4 K/mcL (0.0-1.3); Monocytes % 4.8 %; Platelet Count 162 K/mcL (140-400); Red Blood Count 2.63 M/mcL (3.82-4.97); Segmented Neutrophils % 90.7 %; White Blood Count 28.7 K/mcL (4.3-11.1)
[2021-10-14 05:05] LABS: Alanine Aminotransferase 10 Units/L (7-52); Albumin 3.2 g/dL (3.5-5.7); Albumin/Globulin Ratio 1.4 (1.1-2.2); Alkaline Phosphatase 67 Units/L (34-104); Aspartate Amino Transferase 13 Units/L (13-39); BUN/Creatinine Ratio 38 (6-26); Bilirubin,Total 0.5 mg/dL (0.3-1.0); Blood Urea Nitrogen 19 mg/dL (8-23); Calcium 8.4 mg/dL (8.6-10.3); Carbon Dioxide 45 mEq/L (23-29); Chloride 89 mEq/L (98-107); Globulin 2.3 g/dL (2.4-3.5); Glucose 176 mg/dL (70-105); Osmolality,Calculated 289 (280-300); Potassium 3.2 mEq/L (3.5-5.1); Sodium 136 mEq/L (136-145); Total Protein 5.5 g/dL (6.4-8.9); eGFR For African Americans > 60 (> 60); eGFR For Non-African Americans > 60 (> 60)
[2021-10-14 06:53] LABS: Platelet Estimate Normal (Normal)
[2021-10-14] MEDS: Insulin LISPRO 300 UNITS/3 ML VIAL SUBQ SCH ×3 (08:00→17:17)
[2021-10-14] MEDS: ARIPiprazole 10 MG TABLET PO SCH ×2 (09:47→10:35)
[2021-10-14] MEDS: predniSONE 20 MG TABLET PO SCH ×2 (09:48→10:46)
[2021-10-14] MEDS: Sennosides/Docusate Sodium TABLET PO SCH ×2 (09:48→10:46)
[2021-10-14] MEDS: Cefepime HCl 1,000 MG in Water for inj. (sterile) 10 ML IVP SCH ×3 (09:49→23:49)
[2021-10-14] MEDS: Nystatin Ointment 15 GM TUBE TP SCH ×4 (09:51→19:56)
[2021-10-14] MEDS: Aspirin Enteric Coated 81 MG Tablet PO SCH ×2 (09:51→10:45)
[2021-10-14] MEDS: Nystatin SUSP 5 ML UD.LIQ PO SCH ×4 (10:46→19:56)
[2021-10-14] MEDS: Budesonide/Formoterol 160/4.5 1 PUFF INH IH SCH ×2 (11:02→20:24)
[2021-10-14] MEDS: Norepinephrine 4 MG/254 ML IV.SOLN IVC SCH (18:56)
[2021-10-14] MEDS: Mirtazapine 15 MG TABLET PO SCH (19:56)
[2021-10-15 03:51] VITALS: TEMP 97.7
[2021-10-15] MEDS: MetroNIDAZOLE 500 MG/100 ML 500 MG/100 ML BAG IVPB SCH ×3 (04:03→20:58)
[2021-10-15] MEDS: Levalbuterol Neb 0.63 MG/3 ML IH SCH ×4 (04:04→19:54)
[2021-10-15] MEDS: *HR* Heparin 5,000 UNIT/ML VIAL SQ SCH ×2 (04:04→16:57)
[2021-10-15 04:44] LABS: Basophils % 0.1 %; Hematocrit 22.2 % (35.3-44.9); Immature Granulocytes % 0.9 % (0-4); Lymphocytes # 0.7 K/mcL (0.6-4.6); Lymphocytes % 3.5 %; Mean Corpuscular HGB Conc 31.5 g/dL (31.6-35.5); Mean Corpuscular Hemoglobin 30.8 pg (28.0-33.3); Mean Corpuscular Volume 97.8 fL (83.0-100.0); Mean Platelet Volume 9.7 fL (9.4-12.4); Monocytes # 1.2 K/mcL (0.0-1.3); Neutrophils # 17.4 K/mcL (1.6-8.9); Platelet Count 163 K/mcL (140-400); Red Blood Count 2.27 M/mcL (3.82-4.97); Red Cell Distribution Width 14.8 % (11.5-14.5); Segmented Neutrophils % 89.5 %; White Blood Count 19.4 K/mcL (4.3-11.1)
[2021-10-15 05:12] LABS: Alanine Aminotransferase 10 Units/L (7-52); Albumin 2.8 g/dL (3.5-5.7); Albumin/Globulin Ratio 1.3 (1.1-2.2); Alkaline Phosphatase 69 Units/L (34-104); Aspartate Amino Transferase 11 Units/L (13-39); BUN/Creatinine Ratio 36 (6-26); Bilirubin,Total 0.5 mg/dL (0.3-1.0); Blood Urea Nitrogen 16 mg/dL (8-23); Calcium 8.3 mg/dL (8.6-10.3); Carbon Dioxide 45 mEq/L (23-29); Chloride 92 mEq/L (98-107); Globulin 2.2 g/dL (2.4-3.5); Glucose 171 mg/dL (70-105); Osmolality,Calculated 295 (280-300); Potassium 3.3 mEq/L (3.5-5.1); Sodium 140 mEq/L (136-145); eGFR For African Americans > 60 (> 60); eGFR For Non-African Americans > 60 (> 60)
[2021-10-15] MEDS: Norepinephrine 4 MG/254 ML IV.SOLN IVC SCH (06:55)
[2021-10-15] MEDS: Cefepime HCl 1,000 MG in Water for inj. (sterile) 10 ML IVP SCH ×2 (08:56→16:55)
[2021-10-15] MEDS: Nystatin SUSP 5 ML UD.LIQ PO SCH ×4 (08:56→20:48)
[2021-10-15] MEDS: Nystatin Ointment 15 GM TUBE TP SCH ×4 (08:57→20:38)
[2021-10-15] MEDS: Sennosides/Docusate Sodium TABLET PO SCH (08:57)
[2021-10-15] MEDS: predniSONE 20 MG TABLET PO SCH (08:57)
[2021-10-15] MEDS: ARIPiprazole 10 MG TABLET PO SCH (08:57)
[2021-10-15] MEDS: Aspirin Enteric Coated 81 MG Tablet PO SCH (08:57)
[2021-10-15] MEDS: Insulin LISPRO 300 UNITS/3 ML VIAL SUBQ SCH ×3 (08:57→17:06)
[2021-10-15] MEDS: Budesonide/Formoterol 160/4.5 1 PUFF INH IH SCH ×2 (11:01→19:54)
[2021-10-15 20:33] VITALS: O2SAT 98
[2021-10-15] MEDS: Mirtazapine 15 MG TABLET PO SCH (20:48)
[2021-10-15] MEDS ORDERED: Dexmedetomidine HCl 400 MCG/100 ML MLS IVC SCH (21:45)
[2021-10-15 22:21] VITALS: BP 85/49; PULSE 109
[2021-10-15] MEDS ORDERED: Atropine 1% Opth Drops 100 DROP/5 ML BOTTLE SL PRN (23:20)
[2021-10-15] MEDS ORDERED: Morphine Sulfate 2 MG/ML SYRINGE IVP PRN (23:20)
== END 2021-10-16 02:08 | disposition expired | DRG 720 ==
LOC: 2NNU → SUATTDRO 20:48
PROVIDERS: ADMIT Internal Medicine; ATTEND Pediatrics